=== PATIENT | female | born 1965 | race Asian ===

== ENCOUNTER 2020-02-02 10:28 | Inpatient (IN) | payer OTHER ==
[~2020-02-02] VITALS: Ht 162.6 cm; Wt 63.5 kg
[2020-02-02] VITALS (21 sets, daily range): BP systolic 92–135; BP diastolic 60–108
[2020-02-02] MEDS ORDERED: PROPRANOLOL XL80 M1 GT (10:38)
[2020-02-02] MEDS ORDERED: TRAMADOL HCL100 M2 ORAL (10:38)
[2020-02-02] MEDS ORDERED: PROTONIX20 MG ORAL (10:38)
[2020-02-02] MEDS ORDERED: PROVENTIL HFA6.7 G1 IH (10:38)
[2020-02-02] MEDS ORDERED: METFORMIN HCL500 M1 ORAL (10:38)
--- NOTE | 2020-02-02 10:45 | Emergency Room Report ---
History of Present Illness General Chief Complaint: Syncope Present Illness HPI Disclaimer: Please note that this report is being documented using [employer] technology. This can lead to erroneous entry secondary to incorrect interpretation by the dictating instrument. HPI: 54-year-old female history of cirrhosis, varices, diabetes presents after a syncopal episode. Patient states she was feeling dizzy while eating breakfast and passed out hitting her head. Since that time she has felt dizzy. She has a history of cirrhosis but denies any melena or hematochezia. She has required blood transfusions in the past most recently in December. She denies any fevers. Does complain of a left-sided headache at the site where she hit her head. No nausea no vomiting no chest pain but does complain of palpitations. Allergies: Coded Allergies: MORPHINE (Verified Allergy, Unknown, 02/02/20) COVID-19 Screening Contact w/high risk pt: No Experienced COVID-19 symptoms?: No COVID-19 Testing performed DIRECTOR OPERATING: No Patient History Reviewed Nursing Documentation: PMH: Agreed; PSxH: Agreed Nursing Documentation-PMH Hx Diabetes: Yes Review of Systems All Other Systems: negative except mentioned in HPI Physical Exam Vital Signs Date Time Temp Pulse Resp B/P (MAP) Pulse Ox O2 Delivery O2 Flow Rate FiO2 02/02/20 10:22 52 14 122/88 (99) 98 Room Air Sp02 EP Interpretation: reviewed, normal General Appearance: no apparent distress, other - Pale appearing Head: normocephalic, other - Hematoma to left forehead depressions Eyes: bilateral eye PERRL, bilateral eye EOMI ENT: hearing grossly normal, moist mucus membranes Neck: full range of motion, supple, other - No midline tenderness Respiratory: lungs clear, normal breath sounds, no rhonchi, no respiratory distress, no retraction, no wheezing Cardiovascular #1: normal peripheral pulses, no murmur, bradycardia Gastrointestinal: non tender, soft, non-distended, no guarding Neurologic: alert, oriented x3, no focal defects Skin: normal color, pallor Procedures Critical Care Time Critical Care Time Critical care is made on this patient due to presentation with complete heart block requiring my acute intervention. Critical care time is approximately 35 minutes and excludes procedures Medical Decision Making Diagnostic Impression: Primary Impression: Syncope Additional Impressions: Complete heart block Symptomatic bradycardia Closed head injury ER Course MDM: Differential diagnosis included but not limited to symptomatic bradycardia, complete heart block, syncope, electrolyte disturbance, anemia, dehydration to name a few. Clinical course-patient placed on cardiac monitoring pulse oximetry. Initial EKG showed evidence of sinus bradycardia however while on the monitor patient did have complete heart block. Repeat EKG also confirmed complete heart block. She had prolonged pauses. Patient given multiple doses of atropine with mild improvement however she continued to have long pauses. Patient's potassium was normal. Hemoglobin was also normal. She denied any history of cardiac arrhythmia. At this time due to her bradycardia with complete heart block patient will require pacemaker. Cardiology was consulted Dr. Hanna who will take patient to the cardiac Network Firewall Engineer for transvenous pacer placement. Patient will require admission to the ICU. Case discussed and accepted by Dr. Morales. Of note patient did strike her head during her syncopal event, CT scan of the brain showed no acute process. Labs - Laboratory Tests Test 02/02/20 10:45 White Blood Count 6.4 K/UL (4.8-10.8) Red Blood Count 4.74 M/UL (4.20-5.40) Hemoglobin 11.8 G/DL (12.0-16.0) L Hematocrit 37.3 % (37.0-47.0) Mean Corpuscular Volume 79 FL (80-99) L Mean Corpuscular Hemoglobin 25.0 PG (27.0-31.0) L Mean Corpuscular Hemoglobin Concent 31.8 G/DL (32.0-36.0) L Red Cell Distribution Width 19.5 % (11.6-14.8) H Platelet Count 89 K/UL (150-450) L Mean Platelet Volume 8.8 FL (6.5-10.1) Neutrophils (%) (Auto) % (45.0-75.0) Lymphocytes (%) (Auto) % (20.0-45.0) Monocytes (%) (Auto) % (1.0-10.0) Eosinophils (%) (Auto) % (0.0-3.0) Basophils (%) (Auto) % (0.0-2.0) Differential Total Cells Counted 100 Neutrophils % (Manual) 60 % (45-75) Lymphocytes % (Manual) 32 % (20-45) Monocytes % (Manual) 7 % (1-10) Eosinophils % (Manual) 1 % (0-3) Basophils % (Manual) 0 % (0-2) Band Neutrophils 0 % (0-8) Platelet Estimate Decreased L Platelet Morphology Normal Hypochromasia 1+ Anisocytosis 2+ Prothrombin Time 11.8 SEC (9.30-11.50) H Prothrombin Time INR 1.1 (0.9-1.1) Activated Partial Thromboplast Time 31 SEC (23-33) Sodium Level 137 MMOL/L (136-145) Potassium Level 4.0 MMOL/L (3.5-5.1) Chloride Level 103 MMOL/L (98-107) Carbon Dioxide Level 23 MMOL/L (21-32) Anion Gap 11 mmol/L (5-15) Blood Urea Nitrogen 13 mg/dL (7-18) Creatinine 0.7 MG/DL (0.55-1.30) Estimated Glomerular Filtration Rate > 60 mL/min (>60) Glucose Level 225 MG/DL (74-106) H Calcium Level 8.6 MG/DL (8.5-10.1) Total Bilirubin 0.9 MG/DL (0.2-1.0) Aspartate Amino Transferase (AST) 53 U/L (15-37) H Alanine Aminotransferase (ALT) 74 U/L (12-78) Alkaline Phosphatase 162 U/L (46-116) H Troponin I 0.216 ng/mL (0.000-0.056) Total Protein 8.9 G/DL (6.4-8.2) H Albumin 3.2 G/DL (3.4-5.0) L Globulin 5.7 g/dL Albumin/Globulin Ratio 0.6 (1.0-2.7) L Microbiology Date/Time Source Procedure Growth Status 02/02/20 12:40 Nasopharynx SARS-CoV-2 RdRp Gene Assay - Final Complete On reevaluation: Patient remained having prolonged pauses. Plan-patient in the ICU and transvenous pacer placement with plan for permanent pacemaker placement. EKG Diagnostic Results Troponin ordered: Yes Rate: bradycardiac Rhythm: other - Sinus bradycardia ST Segments: other - Incomplete right bundle branch block Rhythm Strip Diag. Results EP Interpretation: yes Rate: 49 Rhythm: other - Sinus bradycardia Chest X-Ray Diagnostic Results Chest X-Ray Diagnostic Results : Chest X-Ray Ordered: Yes # of Views/Limited/Complete: 1 View Indication: Shortness of Breath EP Interpretation: Yes Interpretation: no consolidation, no effusion, no pneumothorax Impression: No acute disease CT/MRI/US Diagnostic Results CT/MRI/US Diagnostic Results : Imaging Test Ordered: CT scan of the brain Impression No acute process Last Vital Signs Date Time Temp Pulse Resp B/P (MAP) Pulse Ox O2 Delivery O2 Flow Rate FiO2 02/02/20 10:22 52 14 122/88 (99) 98 Room Air Disposition: ADMITTED INPATIENT Condition: Critical Max Rossi M.D. Feb 02, 2020 10:45
[2020-02-02] MEDS ORDERED: Atropine Inj 1mg/10ml Syr ONE (10:56)
[2020-02-02 11:00] LABS: HEMATOCRIT 37.3 % (37.0-47.0); HEMOGLOBIN 11.8 G/DL (12.0-16.0); MEAN CORPUSCULAR VOLUME 79 FL (80-99); PLATELET COUNT 89 K/UL (150-450); RED BLOOD COUNT 4.74 M/UL (4.20-5.40); RED CELL DISTRIBUTION WIDTH 19.5 % (11.6-14.8); WHITE BLOOD COUNT 6.4 K/UL (4.8-10.8)
[2020-02-02] MEDS ORDERED: Atropine Inj 1mg/10ml Syr IVP ONE ×3 (11:00→12:15)
[2020-02-02 11:10] LABS: INR 1.1 (0.9-1.1)
[2020-02-02 11:11] LABS: ANION GAP 11 mmol/L (5-15); BLOOD UREA NITROGEN 13 mg/dL (7-18); CALCIUM 8.6 MG/DL (8.5-10.1); CARBON DIOXIDE 23 MMOL/L (21-32); CHLORIDE 103 MMOL/L (98-107); CREATININE 0.7 MG/DL (0.55-1.30); SODIUM 137 MMOL/L (136-145)
[2020-02-02 11:15] LABS: ALANINE AMINOTRANSFERASE 74 U/L (12-78); ALBUMIN 3.2 G/DL (3.4-5.0); ALBUMIN/GLOBULIN RATIO 0.6 (1.0-2.7); ALKALINE PHOSPHATASE 162 U/L (46-116); ASPARTATE AMINO TRANSFERASE 53 U/L (15-37); BILIRUBIN,TOTAL 0.9 MG/DL (0.2-1.0)
--- NOTE | 2020-02-02 11:41 | Diagnostic Imaging Report ---
Indications: Head trauma, syncopal episode Technique: Spiral acquisitions obtained through the brain. Angled axial and coronal 5 x 5 mm slices were reconstructed. Total dose length product 1098 mGycm. CTDI vol(s) 53 mGy. Dose reduction achieved using automated exposure control Comparison: None. Findings: No acute intracranial hemorrhage or edema, mass effect, nor midline shift. Normal keenan-white differentiation. Normal size ventricles and extra axial CSF spaces. The calvarium is intact. The mastoids are clear. What appears to be prosthetic material is seen in the frontal scalp. The sinuses are clear. Impression: Negative. No acute intracranial bleed or mass effect Frontal scalp prosthesis incidentally noted. Correlate with surgical history The CT scanner at [facility] is accredited by the [employer] and the scans are performed using protocols designed to limit radiation exposure to as low as reasonably achievable to attain images of sufficient resolution adequate for diagnostic evaluation.
--- NOTE | 2020-02-02 11:41 | Diagnostic Imaging Report ---
Indication: Shortness of breath Technique: One view of the chest Comparison: none Findings: Lungs and pleural spaces are clear. Heart size is upper limits normal. Impression: No acute process
--- NOTE | 2020-02-02 13:07 | Cardiac Electrophysiology PN ---
Subjective Subjective [id number] Objective Last 24 Hour Vital Signs Date Time Temp Pulse Resp B/P (MAP) Pulse Ox O2 Delivery O2 Flow Rate FiO2 02/02/20 11:00 98.5 64 18 119/85 99 Room Air 02/02/20 10:44 98.5 50 16 127/82 100 Room Air 02/02/20 10:22 52 14 122/88 (99) 98 Room Air Laboratory Tests Test 02/02/20 10:45 White Blood Count 6.4 K/UL (4.8-10.8) Red Blood Count 4.74 M/UL (4.20-5.40) Hemoglobin 11.8 G/DL (12.0-16.0) L Hematocrit 37.3 % (37.0-47.0) Mean Corpuscular Volume 79 FL (80-99) L Mean Corpuscular Hemoglobin 25.0 PG (27.0-31.0) L Mean Corpuscular Hemoglobin Concent 31.8 G/DL (32.0-36.0) L Red Cell Distribution Width 19.5 % (11.6-14.8) H Platelet Count 89 K/UL (150-450) L Mean Platelet Volume 8.8 FL (6.5-10.1) Neutrophils (%) (Auto) % (45.0-75.0) Lymphocytes (%) (Auto) % (20.0-45.0) Monocytes (%) (Auto) % (1.0-10.0) Eosinophils (%) (Auto) % (0.0-3.0) Basophils (%) (Auto) % (0.0-2.0) Differential Total Cells Counted 100 Neutrophils % (Manual) 60 % (45-75) Lymphocytes % (Manual) 32 % (20-45) Monocytes % (Manual) 7 % (1-10) Eosinophils % (Manual) 1 % (0-3) Basophils % (Manual) 0 % (0-2) Band Neutrophils 0 % (0-8) Platelet Estimate Decreased L Platelet Morphology Normal Hypochromasia 1+ Anisocytosis 2+ Prothrombin Time 11.8 SEC (9.30-11.50) H Prothromb Time International Ratio 1.1 (0.9-1.1) Activated Partial Thromboplast Time 31 SEC (23-33) Sodium Level 137 MMOL/L (136-145) Potassium Level 4.0 MMOL/L (3.5-5.1) Chloride Level 103 MMOL/L (98-107) Carbon Dioxide Level 23 MMOL/L (21-32) Anion Gap 11 mmol/L (5-15) Blood Urea Nitrogen 13 mg/dL (7-18) Creatinine 0.7 MG/DL (0.55-1.30) Estimat Glomerular Filtration Rate > 60 mL/min (>60) Glucose Level 225 MG/DL (74-106) H Calcium Level 8.6 MG/DL (8.5-10.1) Total Bilirubin 0.9 MG/DL (0.2-1.0) Aspartate Amino Transf (AST/SGOT) 53 U/L (15-37) H Alanine Aminotransferase (ALT/SGPT) 74 U/L (12-78) Alkaline Phosphatase 162 U/L (46-116) H Troponin I 0.216 ng/mL (0.000-0.056) Total Protein 8.9 G/DL (6.4-8.2) H Albumin 3.2 G/DL (3.4-5.0) L Globulin 5.7 g/dL Albumin/Globulin Ratio 0.6 (1.0-2.7) L Rodrigue Hanna MD Feb 02, 2020 13:07
[2020-02-02] MEDS ORDERED: Isovue-M 300 15ml INJ ONE (13:26)
[2020-02-02] MEDS ORDERED: Lidocaine 1% Plain 30 ml INJ ONE (13:27)
[2020-02-02] MEDS ORDERED: Sterile Water Irrig 1000ml IRRIG ONE (13:31)
[2020-02-02] MEDS ORDERED: LR 1000ml ONE (13:31)
--- NOTE | 2020-02-02 13:41 | 48 Hour Post Anesthesia Eval ---
Post Anesthesia Evaluation Procedure: Temporary Transvenous Pacemaker Date of Evaluation: Feb 02, 2020 Time of Evaluation: 17:23 Blood Pressure Systolic: 138 0: 77 Pulse Rate: 100 Respiratory Rate: 18 Temperature (Fahrenheit): 98.3 O2 Sat by Pulse Oximetry: 100 Airway: patent Nausea: No Vomiting: No Pain Intensity: 2 Hydration Status: adequate Cardiopulmonary Status: Stable Mental Status/LOC: patient returned to baseline Follow-up Care/Observations: 0 Post-Anesthesia Complications: 0 Follow-up care needed: N/A Iglesia Francois MD Feb 02, 2020 13:41
--- NOTE | 2020-02-02 13:41 | Anethesia Preoperative Eval ---
Anesthesia Pre-op PMH/ROS General Date of Evaluation: Feb 02, 2020 Time of Evaluation: 13:31 Anesthesiologist: Priscila ASA Score: ASA 4 Mallampati Score Class I : Soft palate, uvula, fauces, pillars visible Class II: Soft palate, uvula, fauces visible Class III: Soft palate, base of uvula visible Class IV: Only hard plate visible Mallampati Classification: Class II Surgeon: Cyndi Diagnosis: CHB Surgical Procedure: Temporary Transvenous Pacemaker Anesthesia History: none Family History: no anesthesia problems Allergies: Coded Allergies: MORPHINE (Verified Allergy, Unknown, 02/02/20) Medications: see eMAR Patient NPO?: Yes Past Medical History Cardiovascular: Reports: HTN Gastrointestinal/Genitourinary: Reports: other - Cirrhosis Endocrine: Reports: DM HEENT: Reports: other - Closed Head Injury Hematology/Immune: Reports: anemia Anesthesia Pre-op Phys. Exam Physician Exam Last Vital Signs Date Time Temp Pulse Resp B/P (MAP) Pulse Ox O2 Delivery O2 Flow Rate FiO2 02/02/20 11:00 98.5 64 18 119/85 99 Room Air Constitutional: NAD Neurologic: CN 2-12 intact Cardiovascular: RRR Respiratory: CTA Gastrointestinal: S/NT/ND Airway Exam Mallampati Score: Class II MO: limited ROM: limited Teeth: missing, intact Anesthesia Pre-op A/P Labs Hematology Test 02/02/20 10:45 White Blood Count 6.4 K/UL (4.8-10.8) Red Blood Count 4.74 M/UL (4.20-5.40) Hemoglobin 11.8 G/DL (12.0-16.0) L Hematocrit 37.3 % (37.0-47.0) Mean Corpuscular Volume 79 FL (80-99) L Mean Corpuscular Hemoglobin 25.0 PG (27.0-31.0) L Mean Corpuscular Hemoglobin Concent 31.8 G/DL (32.0-36.0) L Red Cell Distribution Width 19.5 % (11.6-14.8) H Platelet Count 89 K/UL (150-450) L Mean Platelet Volume 8.8 FL (6.5-10.1) Neutrophils (%) (Auto) % (45.0-75.0) Lymphocytes (%) (Auto) % (20.0-45.0) Monocytes (%) (Auto) % (1.0-10.0) Eosinophils (%) (Auto) % (0.0-3.0) Basophils (%) (Auto) % (0.0-2.0) Differential Total Cells Counted 100 Neutrophils % (Manual) 60 % (45-75) Lymphocytes % (Manual) 32 % (20-45) Monocytes % (Manual) 7 % (1-10) Eosinophils % (Manual) 1 % (0-3) Basophils % (Manual) 0 % (0-2) Band Neutrophils 0 % (0-8) Platelet Estimate Decreased L Platelet Morphology Normal Hypochromasia 1+ Anisocytosis 2+ Coagulation Test 02/02/20 10:45 Prothrombin Time 11.8 SEC (9.30-11.50) H Prothromb Time International Ratio 1.1 (0.9-1.1) Activated Partial Thromboplast Time 31 SEC (23-33) Chemistry Test 02/02/20 10:45 Sodium Level 137 MMOL/L (136-145) Potassium Level 4.0 MMOL/L (3.5-5.1) Chloride Level 103 MMOL/L (98-107) Carbon Dioxide Level 23 MMOL/L (21-32) Anion Gap 11 mmol/L (5-15) Blood Urea Nitrogen 13 mg/dL (7-18) Creatinine 0.7 MG/DL (0.55-1.30) Estimat Glomerular Filtration Rate > 60 mL/min (>60) Glucose Level 225 MG/DL (74-106) H Calcium Level 8.6 MG/DL (8.5-10.1) Total Bilirubin 0.9 MG/DL (0.2-1.0) Aspartate Amino Transf (AST/SGOT) 53 U/L (15-37) H Alanine Aminotransferase (ALT/SGPT) 74 U/L (12-78) Alkaline Phosphatase 162 U/L (46-116) H Troponin I 0.216 ng/mL (0.000-0.056) Total Protein 8.9 G/DL (6.4-8.2) H Albumin 3.2 G/DL (3.4-5.0) L Globulin 5.7 g/dL Albumin/Globulin Ratio 0.6 (1.0-2.7) L Risk Assessment & Plan Assessment: ASA 4 Plan: GA Status Change Before Surgery: Yes Pre-Antibiotics Dru Gram Ancef IV Given Within 1 Hr of Incision: Yes Time Given: 14:01 Iglesia Francois MD Feb 02, 2020 13:40
--- NOTE | 2020-02-02 13:41 | Immediate Post-Op Evaluation ---
Immediate Post-Op Evalulation Immediate Post-Op Evalulation Procedure: Temporary Transvenous Pacemaker Date of Evaluation: Feb 02, 2020 Time of Evaluation: 14:58 IV Fluids: 500 LR Blood Products: 0 Estimated Blood Loss: 2 Urinary Output: 0 Blood Pressure Systolic: 144 Blood Pressure Diastolic: 78 Pulse Rate: 100 - Paced Rhythm Respiratory Rate: 16 O2 Sat by Pulse Oximetry: 100 Temperature (Fahrenheit): 98.2 Pain Score (1-10): 2 Nausea: No Vomiting: No Complications 0 Patient Status: awake, reacts, patent, none Hydration Status: adequate Dru Gram Ancef IV Given Within 1 Hr of Incision: Yes Time Given: 14:01 Iglesia Francois MD Feb 02, 2020 13:41
[2020-02-02] MEDS ORDERED: NS Irrig 1000ml IRRIG ONE ×2 (13:43→14:06)
[2020-02-02] MEDS ORDERED: Heparin 5000 units/ml inj ONE (13:43)
[2020-02-02] MEDS ORDERED: Iothalamate Meglumine 60% 50ML INJ ONE (13:44)
[2020-02-02] MEDS ORDERED: Midazolam 2mg/2ml Inj ONE (13:49)
[2020-02-02] MEDS ORDERED: fentaNYL 100 mcg/2 mL IV ONE (13:49)
[2020-02-02] MEDS ORDERED: Sodium Chloride 10ml vial INJ ONE (13:49)
[2020-02-02] MEDS ORDERED: Atropine Sulfate 0.4mg/ml inj ONE (14:01)
--- NOTE | 2020-02-02 14:41 | Brief Operative Note ---
Immediate Post Operative Note Operative Note Pre-op Diagnosis: CHB. Procedure: Transvenous temporary pacer placement dictated [id number] Post-op Diagnosis: same as pre-op Specimen: none Complications: none Condition: stable Fluids: none Estimated Blood Loss: none Implant(s) used?: No Rodrigue Hanna MD Feb 02, 2020 14:41
--- NOTE | 2020-02-02 15:15 | Consultation ---
DATE OF CONSULTATION: 02/02/2020 CARDIAC ELECTROPHYSIOLOGY CONSULTATION REFERRING PHYSICIAN: Jose Morales M.D. REASON FOR CONSULTATION: Syncope and intermittent complete heart block. HISTORY OF PRESENT ILLNESS: The patient is a 54-year-old lady with history of hypertension, diabetes, and cirrhosis of the liver as well as varices, who presents to the hospital after having had syncopal episodes. The patient felt dizzy while having breakfast and then passed out hitting her head. The patient has a history of blood transfusion in the past, most recent in December. The patient hit left side of her head, but does not have any nausea or vomiting. Her EKG in the emergency room showed sinus rhythm with complete heart block with ventricular escape in the 30s. The second EKG showed sinus bradycardia with incomplete right bundle-branch block and prolonged QT. PHYSICAL EXAMINATION: VITAL SIGNS: Blood pressure 119/85, pulse is 40, respirations are 18. She is afebrile. HEAD AND NECK: No JVD. LUNGS: Clear. CARDIOVASCULAR: Bradycardic, irregular S1 and S2. ABDOMEN: Soft, status post laparoscopic cholecystectomy. EXTREMITIES: No pitting edema. LABORATORY AND DIAGNOSTIC DATA: Her labs show white count of 6.4, hemoglobin of 11.8, hematocrit of 37, and platelet count is 89. Sodium is 137, potassium 4.0, BUN of 13, creatinine 0.7, glucose 225. Troponin is 0.216. ASSESSMENT AND PLAN: 1. Intermittent complete heart block and syncope. The patient already ate today. Her first troponin is mildly elevated. We will completely rule out CO protocol, but in view of her intermittent complete heart block, she would need a temporary pacemaker. Decision regarding permanent pacemaker will be done after the workup is completed. 2. Troponin elevation, 0.216. We will completely rule out CO protocol. May need cardiac catheterization for further evaluation of her coronaries. In the meantime, we will completely rule out CO protocol. 3. History of cirrhosis of the liver. 4. Diabetes, on metformin. Thank you very much Dr. Morales for allowing me to participate in the care of this patient. Please do not hesitate to contact me if you have any questions regarding my evaluation. Rodrigue Hanna M.D. DR: SUSAN JOB#: [id number] CC:
--- NOTE | 2020-02-02 15:45 | Procedure Note ---
DATE OF PROCEDURE: 02/02/2020 TEMPORARY TRANSVENOUS PACEMAKER PLACEMENT SURGEON: Rodrigue Hanna MD INDICATION FOR THE PROCEDURE: Syncope and complete heart block with heart rate down to 20s. PROCEDURE PERFORMED: 1. Temporary transvenous pacemaker placement. 2. Fluoroscopy supervision and interpretation. OPERATIVE REPORT: Patient was brought into the operating room in a fasting state and after informed consent was obtained. Patient was prepped and draped in usual fashion. Anesthesia was provided by the anesthesiologist. Patient was in complete heart block with a ventricular rate in the 20s to 30s, but was maintaining a blood pressure. Patient was anesthetized by the anesthesiologist. A total of 10 mL lidocaine was given to right femoral vein area. Access to right femoral vein was obtained by Seldinger technique and a 5-Nepali sheath was placed. Temporary transvenous pacemaker, which was a 5-Nepali catheter was placed through this access under fluoroscopic guidance right ventricular apex. Excellent sensing and pacing parameters were obtained. This temporary venous lead was then affixed to underlying skin. The pacer was programmed to lower rate of 100 and a nonsynchronous mode and output of 10 mA. The threshold was only 1.5 mA. Patient suffered no immediate complications from the procedure and will be transferred to the intensive care unit. IMPRESSION: 1. Successful placement of a temporary transvenous pacemaker from right femoral vein area. 2. The pacer was programmed to lower rate of 100 in an asynchronous mode and output of 10 mA. Rodrigue Hanna M.D. DR: BRIDGETT JOB#: [id number] CC:
[2020-02-02] MEDS: Hydromorphone 0.5mg/0.5ml inj IVP PRN (16:19)
--- NOTE | 2020-02-02 16:19 | Diagnostic Imaging Report ---
INDICATION: Pain, intraoperative TECHNIQUE: Intraoperative imaging Fluoroscopy time: 27.4 seconds Total dose: 0.43378 mGym2 Total number of images: One COMPARISON: None FINDINGS: Intraoperative images demonstrate a femoral temporary pacemaker lead, tip at the expected level of the right ventricular apex IMPRESSION: Intraoperative imaging, as described
[2020-02-02] MEDS: metFORMIN 500mg tab ORAL SCH (17:06)
[2020-02-02] MEDS: D5NS 1,000 ML IV SCH (17:07)
--- NOTE | 2020-02-02 18:20 | Diagnostic Imaging Report ---
EXAM: XR Chest, 1 View CLINICAL HISTORY: CP TECHNIQUE: Frontal view of the chest. COMPARISON: Earlier study of 02/02/2020. FINDINGS: Lungs: No consolidative change. Pleural space: No pleural effusion. No pneumothorax. Heart: Unremarkable. No cardiomegaly. Mediastinum: Unremarkable. Bones/joints: Osteopenia. Other findings: Hypoaeration. Mild cardiomegaly. IMPRESSION: 1. Hypoaeration, similar to the earlier study. 2. Mild cardiomegaly.
[2020-02-02] MEDS: Dyna-Hex 2% Top Sol 2oz TOPIC SCH (20:33)
[2020-02-02] MEDS: Pantoprazole Inj IVP SCH (20:33)
[2020-02-03] VITALS (27 sets, daily range): BP systolic 91–127; BP diastolic 51–85
[2020-02-03] MEDS: Hydromorphone 0.5mg/0.5ml inj IVP PRN ×2 (02:18→10:06)
[2020-02-03 05:41] LABS: HEMATOCRIT 35.2 % (37.0-47.0); HEMOGLOBIN 10.9 G/DL (12.0-16.0); MEAN CORPUSCULAR VOLUME 82 FL (80-99); PLATELET COUNT 60 K/UL (150-450); RED BLOOD COUNT 4.31 M/UL (4.20-5.40); RED CELL DISTRIBUTION WIDTH 18.5 % (11.6-14.8); WHITE BLOOD COUNT 3.8 K/UL (4.8-10.8)
[2020-02-03 07:45] LABS: ANION GAP 10 mmol/L (5-15); BLOOD UREA NITROGEN 14 mg/dL (7-18); CALCIUM 8.5 MG/DL (8.5-10.1); CARBON DIOXIDE 24 MMOL/L (21-32); CHLORIDE 105 MMOL/L (98-107); CREATININE 0.7 MG/DL (0.55-1.30); POTASSIUM 3.7 MMOL/L (3.5-5.1); SODIUM 139 MMOL/L (136-145)
[2020-02-03] MEDS: metFORMIN 500mg tab ORAL SCH ×2 (09:23→17:09)
[2020-02-03] MEDS: Pantoprazole Inj IVP SCH ×2 (09:24→20:48)
[2020-02-03] MEDS: D5NS 1,000 ML IV SCH (09:25)
--- NOTE | 2020-02-03 10:38 | Cardiac Electrophysiology PN ---
Assessment/Plan Assessment/Plan 1. Intermittent complete heart block and syncope. S/P Transvenous temporary pacemaker placement by me yesterday. Need permanent pacer placement. DW patient with RN who agreed to pr oceed.Awaiting authorization from [facility] No underlying rhythm this AM 2. Troponin elevation, 0.216. 0.2 and 0.2. Levels are low and Flat. No CP. ECG May need cardiac catheterization but needs PPM implant 3. Cirrhosis of the liver. 4. Diabetes, on metformin. LINO RN and Dr Cabrera Subjective Subjective In ICU with temporary pacer from RFV. Still 100% V paced with no underlying.No CP or SOB Objective Last 24 Hour Vital Signs Date Time Temp Pulse Resp B/P (MAP) Pulse Ox O2 Delivery O2 Flow Rate FiO2 02/03/20 07:00 100 14 101/73 (82) 100 02/03/20 06:00 100 14 94/65 (75) 100 02/03/20 05:00 100 15 101/64 (76) 99 02/03/20 04:00 Nasal Cannula 2.0 02/03/20 04:00 2.0 02/03/20 04:00 98.6 100 15 101/64 (76) 99 02/03/20 04:00 100 02/03/20 03:00 100 14 111/76 (88) 100 02/03/20 02:00 100 15 101/73 (82) 100 02/03/20 01:00 100 15 113/69 (84) 100 02/03/20 00:00 98.6 100 15 103/67 (79) 100 02/03/20 00:00 Nasal Cannula 2.0 02/03/20 00:00 100 02/03/20 00:00 2.0 02/02/20 23:00 100 20 102/66 (78) 100 02/02/20 22:00 100 17 92/60 (71) 100 02/02/20 21:00 100 23 108/67 (81) 100 02/02/20 20:00 Nasal Cannula 2.0 02/02/20 20:00 100 02/02/20 20:00 2.0 02/02/20 20:00 98.4 100 21 101/70 (80) 100 02/02/20 19:30 99 26 111/73 (86) 100 11/2/20 19:00 100 21 103/79 (87) 100 02/02/20 18:30 100 20 109/69 (82) 100 02/02/20 18:00 100 20 103/69 (80) 100 02/02/20 17:45 100 24 104/69 (81) 100 02/02/20 17:30 100 22 108/61 (77) 100 02/02/20 17:15 100 21 109/70 (83) 100 02/02/20 17:00 100 21 111/69 (83) 100 02/02/20 16:45 100 20 98/61 (73) 99 02/02/20 16:30 100 16 111/70 (84) 100 02/02/20 16:15 98 28 129/76 (93) 100 02/02/20 16:00 98.6 100 26 135/108 (117) 100 02/02/20 16:00 2.0 02/02/20 16:00 100 02/02/20 15:45 102 26 119/72 (88) 100 02/02/20 15:32 Nasal Cannula 2.0 02/02/20 15:30 100 29 98/79 (85) 100 02/02/20 15:10 106 02/02/20 14:42 100 18 100 02/02/20 13:45 98.0 39 22 99/51 98 Room Air 02/02/20 12:20 98.5 62 19 127/86 97 Room Air 02/02/20 11:00 98.5 64 18 119/85 99 Room Air 02/02/20 10:44 98.5 50 16 127/82 100 Room Air Intake and Output 02/02/20 02/03/20 19:00 07:00 Intake Total 145 ml 720 ml Output Total 1045 ml 790 ml Balance -900 ml -70 ml Intake Oral 0 ml IV Total 115 ml 720 ml Other 30 ml Output Urine Total 1045 ml 790 ml Laboratory Tests Test 02/02/20 10:45 02/02/20 17:50 02/03/20 02:05 02/03/20 04:30 White Blood Count 6.4 K/UL (4.8-10.8) 3.8 K/UL (4.8-10.8) L Red Blood Count 4.74 M/UL (4.20-5.40) 4.31 M/UL (4.20-5.40) Hemoglobin 11.8 G/DL (12.0-16.0) L 10.9 G/DL (12.0-16.0) L Hematocrit 37.3 % (37.0-47.0) 35.2 % (37.0-47.0) L Mean Corpuscular Volume 79 FL (80-99) L 82 FL (80-99) Mean Corpuscular Hemoglobin 25.0 PG (27.0-31.0) L 25.4 PG (27.0-31.0) L Mean Corpuscular Hemoglobin Concent 31.8 G/DL (32.0-36.0) L 31.1 G/DL (32.0-36.0) L Red Cell Distribution Width 19.5 % (11.6-14.8) H 18.5 % (11.6-14.8) H Platelet Count 89 K/UL (150-450) L 60 K/UL (150-450) L Mean Platelet Volume 8.8 FL (6.5-10.1) 9.5 FL (6.5-10.1) Neutrophils (%) (Auto) % (45.0-75.0) % (45.0-75.0) Lymphocytes (%) (Auto) % (20.0-45.0) % (20.0-45.0) Monocytes (%) (Auto) % (1.0-10.0) % (1.0-10.0) Eosinophils (%) (Auto) % (0.0-3.0) % (0.0-3.0) Basophils (%) (Auto) % (0.0-2.0) % (0.0-2.0) Differential Total Cells Counted 100 100 Neutrophils % (Manual) 60 % (45-75) 60 % (45-75) Lymphocytes % (Manual) 32 % (20-45) 35 % (20-45) Monocytes % (Manual) 7 % (1-10) 5 % (1-10) Eosinophils % (Manual) 1 % (0-3) 0 % (0-3) Basophils % (Manual) 0 % (0-2) 0 % (0-2) Band Neutrophils 0 % (0-8) 0 % (0-8) Platelet Estimate Decreased L Decreased L Platelet Morphology Normal Normal Hypochromasia 1+ 2+ Anisocytosis 2+ 1+ Prothrombin Time 11.8 SEC (9.30-11.50) H Prothromb Time International Ratio 1.1 (0.9-1.1) Activated Partial Thromboplast Time 31 SEC (23-33) Sodium Level 137 MMOL/L (136-145) 139 MMOL/L (136-145) Potassium Level 4.0 MMOL/L (3.5-5.1) 3.7 MMOL/L (3.5-5.1) Chloride Level 103 MMOL/L (98-107) 105 MMOL/L (98-107) Carbon Dioxide Level 23 MMOL/L (21-32) 24 MMOL/L (21-32) Anion Gap 11 mmol/L (5-15) 10 mmol/L (5-15) Blood Urea Nitrogen 13 mg/dL (7-18) 14 mg/dL (7-18) Creatinine 0.7 MG/DL (0.55-1.30) 0.7 MG/DL (0.55-1.30) Estimat Glomerular Filtration Rate > 60 mL/min (>60) > 60 mL/min (>60) Glucose Level 225 MG/DL (74-106) H 177 MG/DL (74-106) H Calcium Level 8.6 MG/DL (8.5-10.1) 8.5 MG/DL (8.5-10.1) Total Bilirubin 0.9 MG/DL (0.2-1.0) Aspartate Amino Transf (AST/SGOT) 53 U/L (15-37) H Alanine Aminotransferase (ALT/SGPT) 74 U/L (12-78) Alkaline Phosphatase 162 U/L (46-116) H Troponin I 0.216 ng/mL (0.000-0.056) 0.259 ng/mL (0.000-0.056) 0.249 ng/mL (0.000-0.056) Total Protein 8.9 G/DL (6.4-8.2) H Albumin 3.2 G/DL (3.4-5.0) L Globulin 5.7 g/dL Albumin/Globulin Ratio 0.6 (1.0-2.7) L Microcytosis 2+ Pro-B-Type Natriuretic Peptide 868 pg/mL (0-125) H Thyroid Stimulating Hormone (TSH) 0.956 uiU/mL (0.358-3.740) Free Thyroxine 1.29 NG/DL (0.76-1.46) Microbiology Date/Time Source Procedure Growth Status 02/02/20 12:40 Nasopharynx SARS-CoV-2 RdRp Gene Assay - Final Complete Objective HEAD AND NECK: No JVD. LUNGS: Clear. CARDIOVASCULAR: Regular S1 and S2 with no G/R/M. ABDOMEN: Soft, status post laparoscopic cholecystectomy. EXTREMITIES: No pitting edema.Temporary pacer RFV Rodrigue Hanna MD Feb 03, 2020 10:38
--- NOTE | 2020-02-03 10:59 | Consultation ---
History of Present Illness General Date patient seen: Feb 03, 2020 Reason for Hospitalization: Syncope Present Illness HPI This is a 54-year-old female with known history of cirrhosis, varices, diabetes who presents after a syncopal episode. Patient states she was feeling dizzy while eating breakfast and passed out hitting her head. Since that time she has felt dizzy. She has a history of cirrhosis but denies any melena or hematochezia. She has required blood transfusions in the past most recently in December. She denies any fevers. Does complain of a left-sided headache at the site where she hit her head. No nausea no vomiting no chest pain but does complain of palpitations. Identified to have abnormal LFTs and labs surgery called to evaluate assist with care patient seen, patient evaluate, chart reviewed. Patient states she was diagnosed with liver cirrhosis and has been following up with [facility] outpatient liver center. States that she had laparoscopic cholecystectomy recently and she is healing from that. States that they have not found a etiology of her cirrhosis as she does not have a drinking history or history of hepatitis as per patient. Currently abdominal pain improving. Allergies: Coded Allergies: MORPHINE (Verified Allergy, Unknown, 02/02/20) COVID-19 Screening Contact w/high risk pt: No Experienced COVID-19 symptoms?: No Medication History Scheduled Metformin Hcl* (Metformin Hcl*), Unknown Dose ORAL TWICE A DAY, (Reported) Pantoprazole Sodium (Protonix), Unknown Dose ORAL DAILY, (Reported) Tramadol Hcl (Tramadol Hcl), Unknown Dose ORAL DAILY, (Reported) Miscellaneous Medications Albuterol Sulfate (Proventil Hfa), 6.7 GM IH, (Reported) Propranolol HCl (Propranolol HCl ER), Unknown Dose GT, (Reported) Patient History History Provided By: Patient Healthcare decision maker Resuscitation status Advanced Directive on File Past Medical/Surgical History Past Medical/Surgical History: (1) Abnormal LFTs (2) Liver cirrhosis (3) Syncope (4) Closed head injury (5) Symptomatic bradycardia (6) Complete heart block Review of Systems Review of Symptoms General ROS: no weight loss or fever Psychological ROS: no depression or mood changes, no memory loss Ophthalmic ROS: no visual changes or eye irritation ENT ROS: no nasal congestion, hearing loss, dizziness Allergy and Immunology ROS: no allergic symptoms or urticaria Hematological and Lymphatic ROS: no swollen glands, unusual bleeding or bruising Endocrine ROS: no polyuria, polydipsia, weight changes, temperature intolerance Respiratory ROS: no cough, shortness of breath, or wheezing Cardiovascular ROS: no chest pain or dyspnea on exertion Gastrointestinal ROS: denies abdominal pain, bright red blood in stool. Musculoskeletal ROS: no myalgias or arthralgias Neurological ROS: no TIA or stroke symptoms Dermatological ROS: no new or changing skin lesions, rashes or pruritis Physical Exam Physical Exam General appearance: alert, cooperative, no distress, appears stated age Head: Normocephalic, without obvious abnormality, atraumatic Eyes: conjunctivae/corneas clear. PERRL, EOM's intact. Fundi benign Throat: Lips, mucosa, and tongue normal. Teeth and gums normal Neck: supple, symmetrical, trachea midline, no adenopathy, thyroid: not enlarged, symmetric, no tenderness/mass/nodules, no carotid bruit and no JVD Lungs: clear to auscultation bilaterally Heart: regular rate and rhythm, S1, S2 normal, no murmur, click, rub or gallop Abdomen: soft, non-tender. Bowel sounds normal. No masses, no organomegaly Extremities: extremities normal, atraumatic, no cyanosis or edema Pulses: 2+ and symmetric Skin: Skin color, texture, turgor normal. No rashes or lesions Neurologic: Grossly normal Last 24 Hour Vital Signs Date Time Temp Pulse Resp B/P (MAP) Pulse Ox O2 Delivery O2 Flow Rate FiO2 02/03/20 07:00 100 14 101/73 (82) 100 02/03/20 06:00 100 14 94/65 (75) 100 02/03/20 05:00 100 15 101/64 (76) 99 02/03/20 04:00 Nasal Cannula 2.0 02/03/20 04:00 2.0 02/03/20 04:00 98.6 100 15 101/64 (76) 99 02/03/20 04:00 100 02/03/20 03:00 100 14 111/76 (88) 100 02/03/20 02:00 100 15 101/73 (82) 100 02/03/20 01:00 100 15 113/69 (84) 100 02/03/20 00:00 98.6 100 15 103/67 (79) 100 02/03/20 00:00 Nasal Cannula 2.0 02/03/20 00:00 100 11/3/20 00:00 2.0 02/02/20 23:00 100 20 102/66 (78) 100 02/02/20 22:00 100 17 92/60 (71) 100 02/02/20 21:00 100 23 108/67 (81) 100 02/02/20 20:00 Nasal Cannula 2.0 02/02/20 20:00 100 02/02/20 20:00 2.0 02/02/20 20:00 98.4 100 21 101/70 (80) 100 02/02/20 19:30 99 26 111/73 (86) 100 02/02/20 19:00 100 21 103/79 (87) 100 02/02/20 18:30 100 20 109/69 (82) 100 02/02/20 18:00 100 20 103/69 (80) 100 02/02/20 17:45 100 24 104/69 (81) 100 02/02/20 17:30 100 22 108/61 (77) 100 02/02/20 17:15 100 21 109/70 (83) 100 02/02/20 17:00 100 21 111/69 (83) 100 02/02/20 16:45 100 20 98/61 (73) 99 02/02/20 16:30 100 16 111/70 (84) 100 02/02/20 16:15 98 28 129/76 (93) 100 02/02/20 16:00 98.6 100 26 135/108 (117) 100 02/02/20 16:00 2.0 02/02/20 16:00 100 02/02/20 15:45 102 26 119/72 (88) 100 02/02/20 15:32 Nasal Cannula 2.0 02/02/20 15:30 100 29 98/79 (85) 100 02/02/20 15:10 106 02/02/20 14:42 100 18 100 02/02/20 13:45 98.0 39 22 99/51 98 Room Air 02/02/20 12:20 98.5 62 19 127/86 97 Room Air 02/02/20 11:00 98.5 64 18 119/85 99 Room Air Intake and Output 02/02/20 02/03/20 19:00 07:00 Intake Total 145 ml 720 ml Output Total 1045 ml 790 ml Balance -900 ml -70 ml Intake Oral 0 ml IV Total 115 ml 720 ml Other 30 ml Output Urine Total 1045 ml 790 ml Laboratory Tests Test 02/02/20 17:50 02/03/20 02:05 02/03/20 04:30 Troponin I 0.259 ng/mL (0.000-0.056) 0.249 ng/mL (0.000-0.056) White Blood Count 3.8 K/UL (4.8-10.8) L Red Blood Count 4.31 M/UL (4.20-5.40) Hemoglobin 10.9 G/DL (12.0-16.0) L Hematocrit 35.2 % (37.0-47.0) L Mean Corpuscular Volume 82 FL (80-99) Mean Corpuscular Hemoglobin 25.4 PG (27.0-31.0) L Mean Corpuscular Hemoglobin Concent 31.1 G/DL (32.0-36.0) L Red Cell Distribution Width 18.5 % (11.6-14.8) H Platelet Count 60 K/UL (150-450) L Mean Platelet Volume 9.5 FL (6.5-10.1) Neutrophils (%) (Auto) % (45.0-75.0) Lymphocytes (%) (Auto) % (20.0-45.0) Monocytes (%) (Auto) % (1.0-10.0) Eosinophils (%) (Auto) % (0.0-3.0) Basophils (%) (Auto) % (0.0-2.0) Differential Total Cells Counted 100 Neutrophils % (Manual) 60 % (45-75) Lymphocytes % (Manual) 35 % (20-45) Monocytes % (Manual) 5 % (1-10) Eosinophils % (Manual) 0 % (0-3) Basophils % (Manual) 0 % (0-2) Band Neutrophils 0 % (0-8) Platelet Estimate Decreased L Platelet Morphology Normal Hypochromasia 2+ Anisocytosis 1+ Microcytosis 2+ Sodium Level 139 MMOL/L (136-145) Potassium Level 3.7 MMOL/L (3.5-5.1) Chloride Level 105 MMOL/L (98-107) Carbon Dioxide Level 24 MMOL/L (21-32) Anion Gap 10 mmol/L (5-15) Blood Urea Nitrogen 14 mg/dL (7-18) Creatinine 0.7 MG/DL (0.55-1.30) Estimat Glomerular Filtration Rate > 60 mL/min (>60) Glucose Level 177 MG/DL (74-106) H Calcium Level 8.5 MG/DL (8.5-10.1) Pro-B-Type Natriuretic Peptide 868 pg/mL (0-125) H Thyroid Stimulating Hormone (TSH) 0.956 uiU/mL (0.358-3.740) Free Thyroxine 1.29 NG/DL (0.76-1.46) Microbiology Date/Time Source Procedure Growth Status 02/02/20 12:40 Nasopharynx SARS-CoV-2 RdRp Gene Assay - Final Complete Height (Feet): 5 Height (Inches): 5.00 Weight (Pounds): 68 Medications Current Medications Medications (Trade) Dose Ordered Sig/Emma Route PRN Reason Start Time Stop Time Status Last Admin Dose Admin Acetaminophen (Tylenol) 650 mg Q4H PRN ORAL Moderate Pain (Pain Scale 4-6) 02/02/20 16:00 03/03/20 15:59 02/02/20 21:21 Chlorhexidine Gluconate (Heather-Hex 2%) 1 applic DAILY@2000 TOPIC 02/02/20 20:00 05/02/20 19:59 02/02/20 20:33 Dextrose (Dextrose 50%) 25 ml Q30M PRN IV Hypoglycemia 02/03/20 08:00 05/03/20 07:59 Dextrose (Dextrose 50%) 50 ml Q30M PRN IV Hypoglycemia 02/03/20 08:00 05/03/20 07:59 Dextrose/Sodium Chloride 1,000 ml @ 60 mls/hr [id number] IV 02/02/20 16:45 03/03/20 16:44 02/03/20 09:25 Hydromorphone HCl (Dilaudid) 0.25 mg Q4H PRN IVP Severe Pain (Pain Scale 7-10) 02/02/20 16:00 02/09/20 15:59 02/03/20 10:06 Insulin Aspart (NovoLOG) BEFORE MEALS AND HS SUBQ 02/03/20 11:30 05/03/20 11:29 Metformin HCl (Glucophage) 500 mg BID ORAL 02/02/20 18:00 03/03/20 17:59 02/03/20 09:23 Pantoprazole (Protonix) 40 mg EVERY 12 HOURS IVP 02/02/20 21:00 03/03/20 20:59 02/03/20 09:24 Assessment/Plan Problem List: (1) Syncope ICD Codes: R55 - Syncope and collapse SNOMED: 011115150, 772290339 (2) Closed head injury Assessment & Plan: No acute intracranial hemorrhage or edema, mass effect, nor midline shift. Normal keenan-white differentiation. Normal size ventricles and extra axial CSF spaces. The calvarium is intact. The mastoids are clear. What appears to be prosthetic material is seen in the frontal scalp. The sinuses are clear. Impression: Negative. No acute intracranial bleed or mass effect Frontal scalp prosthesis incidentally noted. Correlate with surgical history ICD Codes: S09.90XA - Unspecified injury of head, initial encounter SNOMED: 986984655612, 607281371 (3) Symptomatic bradycardia ICD Codes: R00.1 - Bradycardia, unspecified SNOMED: 14721421, 720719301 (4) Complete heart block ICD Codes: I44.2 - Atrioventricular block, complete SNOMED: 12283609, 700247916 (5) Liver cirrhosis Assessment & Plan: Patient status post laparoscopic cholecystectomy. Patient with known history of Mena liver cirrhosis nonalcoholic etiology unknown does not state its hepatitis. She is undergoing care at [facility] liver center. Will order ultrasound to evaluate for potential intra-abdominal etiology of discomfort. No acute surgical invention at this time. Hold on CT scan as patient has had prior work-up. ICD Codes: K74.60 - Unspecified cirrhosis of liver SNOMED: 65382067 (6) Abnormal LFTs Assessment & Plan: Will trend labs. Amylase lipase ordered. Okay for diet from surgical standpoint. Tentatively n.p.o. after midnight for cardiology intervention. Will follow with recommendations thank you Guevara participate patient's care ICD Codes: R94.5 - Abnormal results of liver function studies SNOMED: 861204417 Joe Cabrera Feb 03, 2020 10:59
[2020-02-03] MEDS: NovoLOG Insulin Flexpen SUBQ SCH ×3 (12:12→21:00)
--- NOTE | 2020-02-03 12:45 | General Progress Note ---
Subjective Allergies: Coded Allergies: MORPHINE (Verified Allergy, Unknown, 02/02/20) Objective Last 24 Hour Vital Signs Date Time Temp Pulse Resp B/P (MAP) Pulse Ox O2 Delivery O2 Flow Rate FiO2 02/03/20 12:00 70 02/03/20 12:00 98.2 70 15 96/73 (81) 100 02/03/20 11:00 70 22 112/71 (85) 100 02/03/20 11:00 70 02/03/20 10:45 70 9 106/67 (80) 100 02/03/20 10:45 70 02/03/20 10:30 70 14 100/67 (78) 100 02/03/20 10:30 70 02/03/20 10:15 77 02/03/20 10:15 77 20 127/84 (98) 100 02/03/20 10:00 100 02/03/20 10:00 100 16 106/73 (84) 100 02/03/20 09:00 100 14 102/85 (91) 100 02/03/20 09:00 100 02/03/20 08:00 98.1 100 13 105/70 (82) 99 02/03/20 08:00 100 02/03/20 07:00 100 14 101/73 (82) 100 02/03/20 06:00 100 14 94/65 (75) 100 02/03/20 05:00 100 15 101/64 (76) 99 02/03/20 04:00 Nasal Cannula 2.0 02/03/20 04:00 2.0 02/03/20 04:00 98.6 100 15 101/64 (76) 99 02/03/20 04:00 100 02/03/20 03:00 100 14 111/76 (88) 100 02/03/20 02:00 100 15 101/73 (82) 100 02/03/20 01:00 100 15 113/69 (84) 100 02/03/20 00:00 98.6 100 15 103/67 (79) 100 02/03/20 00:00 Nasal Cannula 2.0 02/03/20 00:00 100 02/03/20 00:00 2.0 02/02/20 23:00 100 20 102/66 (78) 100 02/02/20 22:00 100 17 92/60 (71) 100 02/02/20 21:00 100 23 108/67 (81) 100 02/02/20 20:00 Nasal Cannula 2.0 02/02/20 20:00 100 02/02/20 20:00 2.0 02/02/20 20:00 98.4 100 21 101/70 (80) 100 02/02/20 19:30 99 26 111/73 (86) 100 02/02/20 19:00 100 21 103/79 (87) 100 02/02/20 18:30 100 20 109/69 (82) 100 02/02/20 18:00 100 20 103/69 (80) 100 02/02/20 17:45 100 24 104/69 (81) 100 02/02/20 17:30 100 22 108/61 (77) 100 02/02/20 17:15 100 21 109/70 (83) 100 02/02/20 17:00 100 21 111/69 (83) 100 02/02/20 16:45 100 20 98/61 (73) 99 02/02/20 16:30 100 16 111/70 (84) 100 02/02/20 16:15 98 28 129/76 (93) 100 02/02/20 16:00 98.6 100 26 135/108 (117) 100 02/02/20 16:00 2.0 02/02/20 16:00 100 02/02/20 15:45 102 26 119/72 (88) 100 02/02/20 15:32 Nasal Cannula 2.0 02/02/20 15:30 100 29 98/79 (85) 100 02/02/20 15:10 106 02/02/20 14:42 100 18 100 02/02/20 13:45 98.0 39 22 99/51 98 Room Air Intake and Output 02/02/20 02/03/20 19:00 07:00 Intake Total 145 ml 720 ml Output Total 1045 ml 790 ml Balance -900 ml -70 ml Intake Oral 0 ml IV Total 115 ml 720 ml Other 30 ml Output Urine Total 1045 ml 790 ml Laboratory Tests 02/02/20 17:50: Troponin I 0.259H 02/03/20 02:05: Troponin I 0.249H 02/03/20 04:30: White Blood Count 3.8L, Red Blood Count 4.31, Hemoglobin 10.9L, Hematocrit 35.2L , Mean Corpuscular Volume 82, Mean Corpuscular Hemoglobin 25.4L, Mean Demond uscular Hemoglobin Concent 31.1L, Red Cell Distribution Width 18.5H, Platelet Count 60L, Mean Platelet Volume 9.5, Neutrophils (%) (Auto) , Lymphocytes (%) (Auto) , Monocytes (%) (Auto) , Eosinophils (%) (Auto) , Basophils (%) (Auto) , Differential Total Cells Counted 100, Neutrophils % (Manual) 60, Lymphocytes % (Manual) 35, Monocytes % (Manual) 5, Eosinophils % (Manual) 0, Basophils % (Manual) 0, Band Neutrophils 0, Platelet Estimate DecreasedL, Platelet Morphology Normal, Hypochromasia 2+, Anisocytosis 1+, Microcytosis 2+, Sodium Level 139, Potassium Level 3.7, Chloride Level 105, Carbon Dioxide Level 24, Anion Gap 10, Blood Urea Nitrogen 14, Creatinine 0.7, Estimat Glomerular Filtra tion Rate > 60, Glucose Level 177H, Calcium Level 8.5, Pro-B-Type Natriuretic Peptide 868H, Thyroid Stimulating Hormone (TSH) 0.956, Free Thyroxine 1.29 Height (Feet): 5 Height (Inches): 5.00 Weight (Pounds): 68 General Appearance: no apparent distress EENT: normal ENT inspection Neck: supple Cardiovascular: normal rate Respiratory/Chest: decreased breath sounds Abdomen: normal bowel sounds, non tender, soft Extremities: non-tender Assessment/Plan Assessment/Plan: cirrhosis EV anemia thrombocytopenia heart block s/p pacemaker DM abd us hepatitis panel ammonia level hold propanolol given above Buster Heard MD Feb 03, 2020 12:45
--- NOTE | 2020-02-03 13:44 | Diagnostic Imaging Report ---
Indication: Syncope Technique: Grayscale and duplex images of the bilateral extracranial carotid and vertebral arteries Comparison: one Findings: Bilaterally, grayscale and duplex images demonstrate atherosclerotic plaquing resulting in less than 50% diameter narrowing. Normal Doppler flow velocities and waveforms. Patent bilateral vertebral arteries, antegrade flow. Impression: Less than 50% stenosis bilaterally All stenosis was measured based on the NASCET criteria. Velocity criteria are extrapolated from diameter data as defined by the Society of radiologists in ultrasound consensus conference. Radiology 2003:229; 340-346
--- NOTE | 2020-02-03 13:45 | Diagnostic Imaging Report ---
Indication: Bilateral leg pain Technique: Grayscale and duplex images of the bilateral lower extremity veins Comparison: none Findings: Right common femoral vein is obscured by bandages related to a femoral pacemaker. The remainder the venous segments are patent, without evidence of intraluminal thrombus. Normal phasic Doppler waveforms, normal compressibility. No evidence of valvular insufficiency. Calf veins and greater saphenous veins are patent Impression: Negative evidence of lower extremity venous thrombosis bilaterally Note limited visualization of the right common femoral vein
--- NOTE | 2020-02-03 15:34 | Anethesia Preoperative Eval ---
Anesthesia Pre-op PMH/ROS General Date of Evaluation: Feb 03, 2020 Time of Evaluation: 15:29 Anesthesiologist: Obdulio ASA Score: ASA 3 Mallampati Score Class I : Soft palate, uvula, fauces, pillars visible Class II: Soft palate, uvula, fauces visible Class III: Soft palate, base of uvula visible Class IV: Only hard plate visible Mallampati Classification: Class II Surgeon: Leela Diagnosis: Symptomatic bradycardia Surgical Procedure: Pacemaker placement Anesthesia History: none Social History: alcohol use - liver cirrosis possible abuse Family History: no anesthesia problems Allergies: Coded Allergies: MORPHINE (Verified Allergy, Unknown, 02/02/20) Medications: see eMAR Patient NPO?: Yes Past Medical History Cardiovascular: Reports: HTN, arrhythmia; Denies: CAD, AR, valve dz, other Pulmonary: Reports: asthma; Denies: COPD, [place], other Gastrointestinal/Genitourinary: Reports: GERD, other - liver cirrosis esophagial varices; Denies: CRI, ESRD Neurologic/Psychiatric: Reports: depression/anxiety; Denies: dementia, CVA, TIA, other Endocrine: Reports: DM, hypothyroidism - hyperthyroid?; Denies: steroids, other HEENT: Denies: cataract (L), cataract (R), glaucoma, [place] (L), [place] (R), other Hematology/Immune: Reports: anemia - mild, other - h/o blood transfusion Musculoskeletal/Integumentary: Reports: OA; Denies: RA, DJD, DDD, edema, other PMH Narrative: as above PSxH Narrative: see H&P Anesthesia Pre-op Phys. Exam Physician Exam Last Vital Signs Date Time Temp Pulse Resp B/P (MAP) Pulse Ox O2 Delivery O2 Flow Rate FiO2 02/03/20 14:00 70 16 91/52 (65) 99 02/03/20 12:00 2.0 02/03/20 12:00 Nasal Cannula 02/03/20 12:00 98.2 Constitutional: NAD Neurologic: CN 2-12 intact Cardiovascular: RRR, no M/R/G Respiratory: CTA Gastrointestinal: S/NT/ND Airway Exam Mallampati Score: Class II MO: full Neck: stiff ROM: limited Teeth: missing Dentures: no upper, no lower Anesthesia Pre-op A/P Labs Hematology Test 02/03/20 04:30 White Blood Count 3.8 K/UL (4.8-10.8) L Red Blood Count 4.31 M/UL (4.20-5.40) Hemoglobin 10.9 G/DL (12.0-16.0) L Hematocrit 35.2 % (37.0-47.0) L Mean Corpuscular Volume 82 FL (80-99) Mean Corpuscular Hemoglobin 25.4 PG (27.0-31.0) L Mean Corpuscular Hemoglobin Concent 31.1 G/DL (32.0-36.0) L Red Cell Distribution Width 18.5 % (11.6-14.8) H Platelet Count 60 K/UL (150-450) L Mean Platelet Volume 9.5 FL (6.5-10.1) Neutrophils (%) (Auto) % (45.0-75.0) Lymphocytes (%) (Auto) % (20.0-45.0) Monocytes (%) (Auto) % (1.0-10.0) Eosinophils (%) (Auto) % (0.0-3.0) Basophils (%) (Auto) % (0.0-2.0) Differential Total Cells Counted 100 Neutrophils % (Manual) 60 % (45-75) Lymphocytes % (Manual) 35 % (20-45) Monocytes % (Manual) 5 % (1-10) Eosinophils % (Manual) 0 % (0-3) Basophils % (Manual) 0 % (0-2) Band Neutrophils 0 % (0-8) Platelet Estimate Decreased L Platelet Morphology Normal Hypochromasia 2+ Anisocytosis 1+ Microcytosis 2+ Chemistry Test 02/02/20 17:50 02/03/20 02:05 02/03/20 04:30 Troponin I 0.259 ng/mL (0.000-0.056) 0.249 ng/mL (0.000-0.056) Sodium Level 139 MMOL/L (136-145) Potassium Level 3.7 MMOL/L (3.5-5.1) Chloride Level 105 MMOL/L (98-107) Carbon Dioxide Level 24 MMOL/L (21-32) Anion Gap 10 mmol/L (5-15) Blood Urea Nitrogen 14 mg/dL (7-18) Creatinine 0.7 MG/DL (0.55-1.30) Estimat Glomerular Filtration Rate > 60 mL/min (>60) Glucose Level 177 MG/DL (74-106) H Calcium Level 8.5 MG/DL (8.5-10.1) Pro-B-Type Natriuretic Peptide 868 pg/mL (0-125) H Thyroid Stimulating Hormone (TSH) 0.956 uiU/mL (0.358-3.740) Free Thyroxine 1.29 NG/DL (0.76-1.46) Risk Assessment & Plan Assessment: ASA 3 Plan: MAC Status Change Before Surgery: No Pre-Antibiotics Drug: as scheduled Camacho Mak MD Feb 03, 2020 15:34
--- NOTE | 2020-02-03 17:30 | Consultation ---
DATE OF CONSULTATION: 02/03/2020 PULMONARY CONSULTATION CONSULTING PHYSICIAN: Wes Martin MD. HISTORY OF PRESENT ILLNESS: This is a 54-year-old female with a history of liver cirrhosis, gastric varices, hypertension, and diabetes, who came to the hospital after having had a syncopal episode. The patient was seen and evaluated, admitted to the hospital. The patient is unable to provide any further history. She was found to be significantly bradycardic and received a transvenous pacemaker yesterday by Dr. Rodrigue Hanna from the right femoral vein. This morning, the patient is more awake and responsive. PAST MEDICAL HISTORY: Liver cirrhosis. ALLERGIES: To morphine. PREVIOUS SURGERIES: None reported. PHYSICAL EXAMINATION: GENERAL: Reveals a 54-year-old female. VITAL SIGNS: Blood pressure is 90/50, heart rate 70, respirations 18. O2 saturation 100% on room air. HEENT: Unremarkable. LUNGS: Clear breath sounds. ABDOMEN: Soft. EXTREMITIES: There is no edema. SKIN: There is evidence of previous laparoscopic cholecystectomy scar. LABORATORY DATA: Lab testing shows hemoglobin 10.9, otherwise normal CBC and BMP. Glucose 177. Coags are negative. Platelet count is 60,000. IMAGING STUDIES: Chest x-ray obtained yesterday shows mild cardiomegaly. IMPRESSION: 1. Bradycardia/heart block. 2. Hypotension. 3. Liver cirrhosis. DISCUSSION: The patient in the ICU being carefully monitored. she is a candidate for permanent pacemaker. Discussed with Dr. Hanna. We will monitor carefully in ICU, provide fluids and pulmonary hygiene. We will follow. Wes Martin M.D. DR: MARIA LUZ JOB#: [id number] CC:
--- NOTE | 2020-02-03 20:15 | History and Physical Report ---
DATE OF ADMISSION: 02/02/2020 HISTORY OF PRESENT ILLNESS: This is an elderly female who came with syncope, closed head injury, symptom of bradycardia, complete heart block, liver cirrhosis, and elevated LFTs. PAST MEDICAL HISTORY: Alcohol abuse, diabetes. Patient is also anxious. Past medical history significant for comorbid obesity, liver failure. MEDICATIONS: See the list. PHYSICAL EXAMINATION: GENERAL: This is an elderly obese [place] female, currently comfortable. VITAL SIGNS: Blood pressure 94/56, pulse 70s, respirations 20, temperature 97.2. HEENT: AT/NC. EOMI. PERRLA. NECK: Supple. No JVD. CHEST: Bilateral crackles. CARDIOVASCULAR: Regular rhythm. No gallop. No murmur. ABDOMEN: Soft. Positive bowel sounds. Nontender. EXTREMITIES: No edema. LABORATORY DATA: White count 6.4, hemoglobin 12, hematocrit, 37, platelets are 89. Chemistry panel, troponins are positive at 0.29. BNP was 868. Sodium 139, potassium 3.6, BUN 14, creatinine 0.7, glucose 177. EKG, nonspecific ST and T-wave changes. IMAGING: Chest x-ray has hypoaeration, mild cardiomegaly. demonstrated femoral temporary pacemaker that was placed by Cardiology. Head CT with no acute intracranial mass effect. Chest x-ray showing no acute process. ASSESSMENT: 1. Severe bradycardia. 2. Junctional rhythm. 3. Syncope. PLAN: Patient had temporary pacemaker placement and needs permanent pacemaker. Cardiology is on case. Pulmonary is also on case. We will currently continue current treatment. Patient is on insulin. Continue Protonix. Continue metformin, hydromorphone for pain, Tylenol. Benja Morales M.D. DR: TRAN JOB#: [id number] CC:
[2020-02-03] MEDS: Dyna-Hex 2% Top Sol 2oz TOPIC SCH (20:43)
[2020-02-04] VITALS (28 sets, daily range): BP systolic 94–141; BP diastolic 45–78
[2020-02-04] MEDS: Hydromorphone 0.5mg/0.5ml inj IVP PRN ×2 (01:15→21:27)
[2020-02-04] MEDS: D5NS 1,000 ML IV SCH ×2 (01:21→18:05)
--- NOTE | 2020-02-04 04:10 | Cardiology Report ---
APPROVED REPORT EKG Measurement Heart [id number] 160P [id number] <Conclusion> Atrial-sensed ventricular-paced rhythm Abnormal ECG
--- NOTE | 2020-02-04 04:10 | Cardiology Report ---
APPROVED REPORT EKG Measurement Heart [id number] <Conclusion> Sinus bradycardia with 1st degree AV block Incomplete right bundle branch block Prolonged QT Abnormal ECG
[2020-02-04 05:14] LABS: HEMATOCRIT 36.3 % (37.0-47.0); MEAN CORPUSCULAR VOLUME 83 FL (80-99); PLATELET COUNT 54 K/UL (150-450); RED BLOOD COUNT 4.38 M/UL (4.20-5.40); WHITE BLOOD COUNT 3.7 K/UL (4.8-10.8)
[2020-02-04 05:24] LABS: INR 1.1 (0.9-1.1)
[2020-02-04 05:55] LABS: ALANINE AMINOTRANSFERASE 45 U/L (12-78); ALBUMIN 2.5 G/DL (3.4-5.0); ALBUMIN/GLOBULIN RATIO 0.5 (1.0-2.7); ALKALINE PHOSPHATASE 123 U/L (46-116); ANION GAP 7 mmol/L (5-15); ASPARTATE AMINO TRANSFERASE 38 U/L (15-37); BILIRUBIN,TOTAL 0.7 MG/DL (0.2-1.0); BLOOD UREA NITROGEN 12 mg/dL (7-18); CALCIUM 8.2 MG/DL (8.5-10.1); CARBON DIOXIDE 25 MMOL/L (21-32); CHLORIDE 106 MMOL/L (98-107); CREATININE 0.8 MG/DL (0.55-1.30); POTASSIUM 3.8 MMOL/L (3.5-5.1); SODIUM 138 MMOL/L (136-145)
[2020-02-04] MEDS: NovoLOG Insulin Flexpen SUBQ SCH ×4 (06:12→21:28)
[2020-02-04 06:42] LABS: AMMONIA 125 umol/L (11-32)
[2020-02-04] MEDS: Pantoprazole Inj IVP SCH ×2 (08:32→20:08)
[2020-02-04] MEDS: metFORMIN 500mg tab ORAL SCH ×3 (08:32→17:30)
--- NOTE | 2020-02-04 09:08 | General Progress Note ---
Subjective Allergies: Coded Allergies: MORPHINE (Verified Allergy, Unknown, 02/02/20) Subjective more awake doing better Objective Last 24 Hour Vital Signs Date Time Temp Pulse Resp B/P (MAP) Pulse Ox O2 Delivery O2 Flow Rate FiO2 02/04/20 09:00 70 14 118/68 (85) 97 02/04/20 08:00 Nasal Cannula 2.0 02/04/20 08:00 2.0 02/04/20 08:00 97.9 70 17 107/74 (85) 97 02/04/20 07:00 70 19 117/67 (84) 94 02/04/20 06:00 70 17 96/78 (84) 95 02/04/20 05:00 70 17 101/56 (71) 95 02/04/20 04:00 98.4 70 17 107/59 (75) 94 02/04/20 04:00 70 02/04/20 04:00 Nasal Cannula 2.0 02/04/20 03:00 70 18 94/57 (69) 95 02/04/20 02:00 70 16 96/59 (71) 94 02/04/20 01:00 70 20 98/57 (71) 96 02/04/20 00:08 2.0 02/04/20 00:00 Nasal Cannula 2.0 02/04/20 00:00 98.0 70 19 99/58 (72) 96 02/04/20 00:00 70 02/03/20 23:00 70 22 109/61 (77) 96 02/03/20 22:00 70 18 101/63 (76) 98 02/03/20 21:00 70 17 94/51 (65) 96 02/03/20 20:00 97.5 70 19 101/55 (70) 96 02/03/20 20:00 Nasal Cannula 2.0 02/03/20 20:00 2.0 02/03/20 20:00 70 02/03/20 19:00 70 10 100/58 (72) 100 02/03/20 18:00 70 16 115/52 (73) 100 02/03/20 17:00 70 14 106/59 (75) 100 02/03/20 16:00 97.9 70 15 97/61 (73) 100 02/03/20 16:00 Nasal Cannula 2.0 11/3/20 16:00 2.0 02/03/20 16:00 70 02/03/20 15:00 70 15 93/61 (72) 100 02/03/20 14:00 70 16 91/52 (65) 99 02/03/20 13:00 70 15 94/56 (69) 100 02/03/20 12:00 2.0 02/03/20 12:00 70 02/03/20 12:00 Nasal Cannula 2.0 02/03/20 12:00 98.2 70 15 96/73 (81) 100 02/03/20 11:00 70 22 112/71 (85) 100 02/03/20 11:00 70 02/03/20 10:45 70 9 106/67 (80) 100 02/03/20 10:45 70 02/03/20 10:30 70 14 100/67 (78) 100 02/03/20 10:30 70 02/03/20 10:15 77 02/03/20 10:15 77 20 127/84 (98) 100 02/03/20 10:00 100 02/03/20 10:00 100 16 106/73 (84) 100 Intake and Output 02/03/20 02/04/20 19:00 07:00 Intake Total 1200 ml 720 ml Output Total 1135 ml 990 ml Balance 65 ml -270 ml Intake Oral 480 ml IV Total 720 ml 720 ml Output Urine Total 1135 ml 990 ml Laboratory Tests 02/04/20 03:20: White Blood Count 3.7L, Red Blood Count 4.38, Hemoglobin 11.0L, Hematocrit 36.3L , Mean Corpuscular Volume 83, Mean Corpuscular Hemoglobin 25.2L, Mean Corpuscular Hemoglobin Concent 30.4L, Red Cell Distribution Width 19.0H, Platelet Count 54L, Mean Platelet Volume 9.5, Neutrophils (%) (Auto) , Lymphocytes (%) (Auto) , Monocytes (%) (Auto) , Eosinophils (%) (Auto) , Basophils (%) (Auto) , Differential Total Cells Counted 100, Neutrophils % (Manual) 59, Lymphocytes % (Manual) 28, Monocytes % (Manual) 12H, Eosinophils % (Manual) 1, Basophils % (Manual) 0, Band Neutrophils 0, Platelet Estimate Decre asedL, Platelet Morphology Normal, Hypochromasia 2+, Anisocytosis 1+, Prothrombin Time 11.8H, Prothromb Time International Ratio 1.1, Activated Partial Thromboplast Time 31, Sodium Level 138, Potassium Level 3.8, Chloride Level 106, Carbon Dioxide Level 25, Anion Gap 7, Blood Urea Nitrogen 12, Creatinine 0.8, Estimat Glomerular Filtration Rate > 60, Glucose Level 224H, Calcium Level 8.2L, Total Bilirubin 0.7, Aspartate Amino Transf (AST/SGOT) 38H, Alanine Aminotransferase (ALT/SGPT) 45, Alkaline Phosphatase 123H, Ammonia 125H, Total Protein 7.7, Albumin 2.5L, Globulin 5.2, Albumin/Globulin Ratio 0.5L, Hepatitis A IgM Antibody [Pending], Hepatitis B Surface Antigen [Pending], Hepatitis B Core IgM Antibody [Pending], Hepatitis C Antibody [Pending] 02/04/20 05:18: POC Whole Blood Glucose 247H Height (Feet): 5 Height (Inches): 4.00 Weight (Pounds): 140 General Appearance: alert EENT: PERRL/EOMI Neck: supple Cardiovascular: bradycardia Respiratory/Chest: lungs clear Abdomen: soft, tender Neurologic: home health clinician II-XII grossly normal Assessment/Plan Assessment/Plan: 1 syncopy 2 cardiac arrthemia 3 htn 4 cirrosis for pacemaker today cont rest tx cont icu Jose Morales MD Feb 04, 2020 09:08
--- NOTE | 2020-02-04 09:31 | Pulmonology Progress Note ---
Subjective Interval Events: For PPM today Constitutional: Reports: no symptoms HEENT: Repors: no symptoms Respiratory: Reports: no symptoms Cardiovascular: Reports: no symptoms Gastrointestinal/Abdominal: Reports: no symptoms Allergies: Coded Allergies: MORPHINE (Verified Allergy, Unknown, 02/02/20) Objective Last 24 Hour Vital Signs Date Time Temp Pulse Resp B/P (MAP) Pulse Ox O2 Delivery O2 Flow Rate FiO2 02/04/20 09:00 70 14 118/68 (85) 97 02/04/20 08:00 Nasal Cannula 2.0 02/04/20 08:00 2.0 02/04/20 08:00 97.9 70 17 107/74 (85) 97 02/04/20 07:59 70 02/04/20 07:00 70 19 117/67 (84) 94 02/04/20 06:00 70 17 96/78 (84) 95 02/04/20 05:00 70 17 101/56 (71) 95 02/04/20 04:00 98.4 70 17 107/59 (75) 94 02/04/20 04:00 70 02/04/20 04:00 Nasal Cannula 2.0 02/04/20 03:00 70 18 94/57 (69) 95 02/04/20 02:00 70 16 96/59 (71) 94 02/04/20 01:00 70 20 98/57 (71) 96 02/04/20 00:08 2.0 02/04/20 00:00 Nasal Cannula 2.0 02/04/20 00:00 98.0 70 19 99/58 (72) 96 02/04/20 00:00 70 02/03/20 23:00 70 22 109/61 (77) 96 02/03/20 22:00 70 18 101/63 (76) 98 02/03/20 21:00 70 17 94/51 (65) 96 02/03/20 20:00 97.5 70 19 101/55 (70) 96 02/03/20 20:00 Nasal Cannula 2.0 02/03/20 20:00 2.0 02/03/20 20:00 70 02/03/20 19:00 70 10 100/58 (72) 100 02/03/20 18:00 70 16 115/52 (73) 100 02/03/20 17:00 70 14 106/59 (75) 100 02/03/20 16:00 97.9 70 15 97/61 (73) 100 02/03/20 16:00 Nasal Cannula 2.0 02/03/20 16:00 2.0 02/03/20 16:00 70 02/03/20 15:00 70 15 93/61 (72) 100 02/03/20 14:00 70 16 91/52 (65) 99 02/03/20 13:00 70 15 94/56 (69) 100 02/03/20 12:00 2.0 02/03/20 12:00 70 02/03/20 12:00 Nasal Cannula 2.0 02/03/20 12:00 98.2 70 15 96/73 (81) 100 02/03/20 11:00 70 22 112/71 (85) 100 02/03/20 11:00 70 02/03/20 10:45 70 9 106/67 (80) 100 02/03/20 10:45 70 02/03/20 10:30 70 14 100/67 (78) 100 02/03/20 10:30 70 02/03/20 10:15 77 02/03/20 10:15 77 20 127/84 (98) 100 02/03/20 10:00 100 02/03/20 10:00 100 16 106/73 (84) 100 Intake and Output 02/03/20 02/04/20 19:00 07:00 Intake Total 1200 ml 720 ml Output Total 1135 ml 990 ml Balance 65 ml -270 ml Intake Oral 480 ml IV Total 720 ml 720 ml Output Urine Total 1135 ml 990 ml General Appearance: no acute distress HEENT: normocephalic Respiratory: chest wall non-tender, lungs clear Cardiovascular: normal peripheral pulses, normal rate Abdomen: normal bowel sounds Microbiology Date/Time Source Procedure Growth Status 02/02/20 12:40 Nasopharynx SARS-CoV-2 RdRp Gene Assay - Final Complete Laboratory Tests 02/04/20 03:20: White Blood Count 3.7L, Red Blood Count 4.38, Hemoglobin 11.0L, Hematocrit 36.3L , Mean Corpuscular Volume 83, Mean Corpuscular Hemoglobin 25.2L, Mean Corpuscular Hemoglobin Concent 30.4L, Red Cell Distribution Width 19.0H, Platelet Count 54L, Mean Platelet Volume 9.5, Neutrophils (%) (Auto) , Lymphocytes (%) (Auto) , Monocytes (%) (Auto) , Eosinophils (%) (Auto) , Basophils (%) (Auto) , Differential Total Cells Counted 100, Neutrophils % (Manual) 59, Lymphocytes % (Manual) 28, Monocytes % (Manual) 12H, Eosinophils % (Manual) 1, Basophils % (Manual) 0, Band Neutrophils 0, Platelet Estimate DecreasedL, Platelet Morphology Normal, Hypochromasia 2+, Anisocytosis 1+, Prothrombin Time 11.8H, Prothromb Time International Ratio 1.1, Activated Partial Thromboplast Time 31, Sodium Level 138, Potassium Level 3.8, Chloride Level 106, Carbon Dioxide Level 25, Anion Gap 7, Blood Urea Nitrogen 12, Creatinine 0.8, Estimat Glomerular Filtration Rate > 60, Glucose Level 224H, Calcium Level 8.2L, Total Bilirubin 0.7, Aspartate Amino Transf (AST/SGOT) 38H, Alanine Aminotransferase (ALT/SGPT) 45, Alkaline Phosphatase 123H, Ammonia 125H, Total Protein 7.7, Albumin 2.5L, Globulin 5.2, Albumin/Globulin Ratio 0.5L, Hepatitis A IgM Antibody [Pending], Hepatitis B Surface Antigen [Pending], Hepatitis B Core IgM Antibody [Pending], Hepatitis C Antibody [Pending] 02/04/20 05:18: POC Whole Blood Glucose 247H Current Medications Medications (Trade) Dose Ordered Sig/Emma Route PRN Reason Start Time Stop Time Status Last Admin Dose Admin Acetaminophen (Tylenol) 650 mg Q4H PRN ORAL Moderate Pain (Pain Scale 4-6) 02/02/20 16:00 03/03/20 15:59 02/02/20 21:21 Chlorhexidine Gluconate (Heather-Hex 2%) 1 applic DAILY@1999 TOPIC 02/02/20 20:00 05/02/20 19:59 02/03/20 20:43 Dextrose (Dextrose 50%) 25 ml Q30M PRN IV Hypoglycemia 02/03/20 08:00 05/03/20 07:59 Dextrose (Dextrose 50%) 50 ml Q30M PRN IV Hypoglycemia 02/03/20 08:00 05/03/20 07:59 Dextrose/Sodium Chloride 1,000 ml @ 60 mls/hr [id number] IV 02/02/20 16:45 03/03/20 16:44 02/04/20 01:21 Hydromorphone HCl (Dilaudid) 0.25 mg Q4H PRN IVP Severe Pain (Pain Scale 7-10) 02/02/20 16:00 02/09/20 15:59 02/04/20 01:15 Insulin Aspart (NovoLOG) BEFORE MEALS AND HS SUBQ 02/03/20 11:30 05/03/20 11:29 02/04/20 06:12 Metformin HCl (Glucophage) 500 mg BID ORAL 02/02/20 18:00 03/03/20 17:59 02/03/20 17:09 Pantoprazole (Protonix) 40 mg EVERY 12 HOURS IVP 02/02/20 21:00 03/03/20 20:59 02/04/20 08:32 Assessment/Plan Assessment/Plan IMPRESSION: 1. Bradycardia/heart block. 2. Hypotension. 3. Liver cirrhosis. DISCUSSION: The patient in the ICU being carefully monitored. She is a candidate for permanent pacemaker. Discussed with Dr. Hanna. Careful ICU monitoring. Nico Bazan Omar Syed MD Feb 04, 2020 09:31
--- NOTE | 2020-02-04 09:38 | Surgery Progress Note ---
Surgery Progress Note Subjective Additional Comments no acute events lft's noted cxr reviewed cardiology input Objective Last 24 Hour Vital Signs Date Time Temp Pulse Resp B/P (MAP) Pulse Ox O2 Delivery O2 Flow Rate FiO2 02/04/20 09:00 70 14 118/68 (85) 97 02/04/20 08:00 Nasal Cannula 2.0 02/04/20 08:00 2.0 02/04/20 08:00 97.9 70 17 107/74 (85) 97 02/04/20 07:59 70 02/04/20 07:00 70 19 117/67 (84) 94 02/04/20 06:00 70 17 96/78 (84) 95 02/04/20 05:00 70 17 101/56 (71) 95 02/04/20 04:00 98.4 70 17 107/59 (75) 94 02/04/20 04:00 70 02/04/20 04:00 Nasal Cannula 2.0 02/04/20 03:00 70 18 94/57 (69) 95 02/04/20 02:00 70 16 96/59 (71) 94 02/04/20 01:00 70 20 98/57 (71) 96 02/04/20 00:08 2.0 02/04/20 00:00 Nasal Cannula 2.0 02/04/20 00:00 98.0 70 19 99/58 (72) 96 02/04/20 00:00 70 02/03/20 23:00 70 22 109/61 (77) 96 02/03/20 22:00 70 18 101/63 (76) 98 02/03/20 21:00 70 17 94/51 (65) 96 02/03/20 20:00 97.5 70 19 101/55 (70) 96 02/03/20 20:00 Nasal Cannula 2.0 02/03/20 20:00 2.0 02/03/20 20:00 70 02/03/20 19:00 70 10 100/58 (72) 100 02/03/20 18:00 70 16 115/52 (73) 100 02/03/20 17:00 70 14 106/59 (75) 100 02/03/20 16:00 97.9 70 15 97/61 (73) 100 02/03/20 16:00 Nasal Cannula 2.0 02/03/20 16:00 2.0 02/03/20 16:00 70 02/03/20 15:00 70 15 93/61 (72) 100 02/03/20 14:00 70 16 91/52 (65) 99 02/03/20 13:00 70 15 94/56 (69) 100 02/03/20 12:00 2.0 02/03/20 12:00 70 02/03/20 12:00 Nasal Cannula 2.0 02/03/20 12:00 98.2 70 15 96/73 (81) 100 02/03/20 11:00 70 22 112/71 (85) 100 02/03/20 11:00 70 02/03/20 10:45 70 9 106/67 (80) 100 02/03/20 10:45 70 02/03/20 10:30 70 14 100/67 (78) 100 02/03/20 10:30 70 02/03/20 10:15 77 02/03/20 10:15 77 20 127/84 (98) 100 02/03/20 10:00 100 02/03/20 10:00 100 16 106/73 (84) 100 I&O Intake and Output 02/03/20 02/04/20 19:00 07:00 Intake Total 1200 ml 720 ml Output Total 1135 ml 990 ml Balance 65 ml -270 ml Intake Oral 480 ml IV Total 720 ml 720 ml Output Urine Total 1135 ml 990 ml Cardiovascular: RSR Respiratory: decreased breath sounds Abdomen: non-tender, present bowel sounds Extremities: no edema, no tenderness, no cyanosis Laboratory Tests Test 02/04/20 03:20 02/04/20 05:18 White Blood Count 3.7 K/UL (4.8-10.8) L Red Blood Count 4.38 M/UL (4.20-5.40) Hemoglobin 11.0 G/DL (12.0-16.0) L Hematocrit 36.3 % (37.0-47.0) L Mean Corpuscular Volume 83 FL (80-99) Mean Corpuscular Hemoglobin 25.2 PG (27.0-31.0) L Mean Corpuscular Hemoglobin Concent 30.4 G/DL (32.0-36.0) L Red Cell Distribution Width 19.0 % (11.6-14.8) H Platelet Count 54 K/UL (150-450) L Mean Platelet Volume 9.5 FL (6.5-10.1) Neutrophils (%) (Auto) % (45.0-75.0) Lymphocytes (%) (Auto) % (20.0-45.0) Monocytes (%) (Auto) % (1.0-10.0) Eosinophils (%) (Auto) % (0.0-3.0) Basophils (%) (Auto) % (0.0-2.0) Differential Total Cells Counted 100 Neutrophils % (Manual) 59 % (45-75) Lymphocytes % (Manual) 28 % (20-45) Monocytes % (Manual) 12 % (1-10) H Eosinophils % (Manual) 1 % (0-3) Basophils % (Manual) 0 % (0-2) Band Neutrophils 0 % (0-8) Platelet Estimate Decreased L Platelet Morphology Normal Hypochromasia 2+ Anisocytosis 1+ Prothrombin Time 11.8 SEC (9.30-11.50) H Prothromb Time International Ratio 1.1 (0.9-1.1) Activated Partial Thromboplast Time 31 SEC (23-33) Sodium Level 138 MMOL/L (136-145) Potassium Level 3.8 MMOL/L (3.5-5.1) Chloride Level 106 MMOL/L (98-107) Carbon Dioxide Level 25 MMOL/L (21-32) Anion Gap 7 mmol/L (5-15) Blood Urea Nitrogen 12 mg/dL (7-18) Creatinine 0.8 MG/DL (0.55-1.30) Estimat Glomerular Filtration Rate > 60 mL/min (>60) Glucose Level 224 MG/DL (74-106) H Calcium Level 8.2 MG/DL (8.5-10.1) L Total Bilirubin 0.7 MG/DL (0.2-1.0) Aspartate Amino Transf (AST/SGOT) 38 U/L (15-37) H Alanine Aminotransferase (ALT/SGPT) 45 U/L (12-78) Alkaline Phosphatase 123 U/L (46-116) H Ammonia 125 umol/L (11-32) H Total Protein 7.7 G/DL (6.4-8.2) Albumin 2.5 G/DL (3.4-5.0) L Globulin 5.2 g/dL Albumin/Globulin Ratio 0.5 (1.0-2.7) L Hepatitis A IgM Antibody Pending Hepatitis B Surface Antigen Pending Hepatitis B Core IgM Antibody Pending Hepatitis C Antibody Pending POC Whole Blood Glucose 247 MG/DL (74-106) H Plan Problems: (1) Syncope (2) Closed head injury Assessment & Plan: No acute intracranial hemorrhage or edema, mass effect, nor midline shift. Normal keenan-white differentiation. Normal size ventricles and extra axial CSF spaces. The calvarium is intact. The mastoids are clear. What appears to be prosthetic material is seen in the frontal scalp. The sinuses are clear. Impression: Negative. No acute intracranial bleed or mass effect Frontal scalp prosthesis incidentally noted. Correlate with surgical history (3) Symptomatic bradycardia (4) Complete heart block (5) Liver cirrhosis Assessment & Plan: Patient status post laparoscopic cholecystectomy. Patient with known history of Mena liver cirrhosis nonalcoholic etiology unknown does not state its hepatitis. She is undergoing care at [facility] liver center. Will order ultrasound to evaluate for potential intra-abdominal etiology of discomfort. No acute surgical invention at this time. Hold on CT scan as patient has had prior work-up. (6) Abnormal LFTs Assessment & Plan: Will trend labs. Amylase lipase ordered. Okay for diet from surgical standpoint. Tentatively n.p.o. after midnight for cardiology intervention. Will follow with recommendations thank you Ismael nina patient's care DeborahJoe Feb 04, 2020 09:38
--- NOTE | 2020-02-04 09:55 | Diagnostic Imaging Report ---
Indication: Abdominal pain Technique: Kyle-scale and duplex images of the upper abdomen were obtained Comparison: none Findings: Gallbladder has been removed Common bile duct measures 3 mm in diameter. No intrahepatic biliary ductal dilatation. Liver demonstrates heterogeneous echogenicity and surface nodularity Portal vein and hepatic veins are patent. Pancreas is unremarkable. Spleen is mildly enlarged, measuring 13.4 cm long axis dimension, calculated volume 272 mL. Left kidney measures 11 point cm in length. Right kidney measures 10.9 cm length. Both kidneys demonstrate normal echogenicity. There is no hydronephrosis. No focal abnormality . Abdominal aorta is partially obscured by bowel gas, visualized portions are non-aneurysmal . No free fluid Impression: Echogenic with surface nodularity, suggestive of cirrhotic change. Surgically absent gallbladder, negative for dilated ducts Note incomplete visualization of the abdominal aorta
[2020-02-04] MEDS ORDERED: Midazolam 2mg/2ml Inj ONE (10:34)
[2020-02-04] MEDS ORDERED: fentaNYL 100 mcg/2 mL IV ONE (10:34)
[2020-02-04] MEDS ORDERED: Lidocaine 1% MPF 10mg/ml 5ml ONE (10:39)
[2020-02-04] MEDS ORDERED: Isovue-M 300 15ml INJ ONE (10:39)
[2020-02-04] MEDS ORDERED: Lidocaine 1% Plain 30 ml INJ ONE (10:39)
--- NOTE | 2020-02-04 11:03 | General Progress Note ---
Subjective ROS Limited/Unobtainable: Yes Allergies: Coded Allergies: MORPHINE (Verified Allergy, Unknown, 02/02/20) Objective Last 24 Hour Vital Signs Date Time Temp Pulse Resp B/P (MAP) Pulse Ox O2 Delivery O2 Flow Rate FiO2 02/04/20 10:00 70 15 110/69 (83) 98 02/04/20 09:00 70 14 118/68 (85) 97 02/04/20 08:00 Nasal Cannula 2.0 02/04/20 08:00 2.0 02/04/20 08:00 97.9 70 17 107/74 (85) 97 02/04/20 07:59 70 02/04/20 07:00 70 19 117/67 (84) 94 02/04/20 06:00 70 17 96/78 (84) 95 02/04/20 05:00 70 17 101/56 (71) 95 02/04/20 04:00 98.4 70 17 107/59 (75) 94 02/04/20 04:00 70 02/04/20 04:00 Nasal Cannula 2.0 02/04/20 03:00 70 18 94/57 (69) 95 02/04/20 02:00 70 16 96/59 (71) 94 02/04/20 01:00 70 20 98/57 (71) 96 02/04/20 00:08 2.0 02/04/20 00:00 Nasal Cannula 2.0 02/04/20 00:00 98.0 70 19 99/58 (72) 96 02/04/20 00:00 70 02/03/20 23:00 70 22 109/61 (77) 96 02/03/20 22:00 70 18 101/63 (76) 98 02/03/20 21:00 70 17 94/51 (65) 96 02/03/20 20:00 97.5 70 19 101/55 (70) 96 02/03/20 20:00 Nasal Cannula 2.0 02/03/20 20:00 2.0 02/03/20 20:00 70 02/03/20 19:00 70 10 100/58 (72) 100 02/03/20 18:00 70 16 115/52 (73) 100 02/03/20 17:00 70 14 106/59 (75) 100 02/03/20 16:00 97.9 70 15 97/61 (73) 100 02/03/20 16:00 Nasal Cannula 2.0 02/03/20 16:00 2.0 02/03/20 16:00 70 02/03/20 15:00 70 15 93/61 (72) 100 02/03/20 14:00 70 16 91/52 (65) 99 02/03/20 13:00 70 15 94/56 (69) 100 02/03/20 12:00 2.0 02/03/20 12:00 70 02/03/20 12:00 Nasal Cannula 2.0 02/03/20 12:00 98.2 70 15 96/73 (81) 100 Intake and Output 02/03/20 02/04/20 19:00 07:00 Intake Total 1200 ml 720 ml Output Total 1135 ml 1070 ml Balance 65 ml -350 ml Intake Oral 480 ml IV Total 720 ml 720 ml Output Urine Total 1135 ml 1070 ml Laboratory Tests 02/04/20 03:20: White Blood Count 3.7L, Red Blood Count 4.38, Hemoglobin 11.0L, Hematocrit 36.3L , Mean Corpuscular Volume 83, Mean Corpuscular Hemoglobin 25.2L, Mean Corpuscular Hemoglobin Concent 30.4L, Red Cell Distribution Width 19.0H, Platelet Count 54L, Mean Platelet Volume 9.5, Neutrophils (%) (Auto) , Lymphocytes (%) (Auto) , Monocytes (%) (Auto) , Eosinophils (%) (Auto) , Basophils (%) (Auto) , Differential Total Cells Counted 100, Neutrophils % (Manual) 59, Lymphocytes % (Manual) 28, Monocytes % (Manual) 12H, Eosinophils % (Manual) 1, Basophils % (Manual) 0, Band Neutrophils 0, Platelet Estimate DecreasedL, Platelet Morphology Normal, Hypochromasia 2+, Anisocytosis 1+, Prothrombin Time 11.8H, Prothromb Time International Ratio 1.1, Activated Partial Thromboplast Time 31, Sodium Level 138, Potassium Level 3.8, Chloride Level 106, Carbon Dioxide Level 25, Anion Gap 7, Blood Urea Nitrogen 12, Creatinine 0.8, Estimat Glomerular Filtration Rate > 60, Glucose Level 224H, Calcium Level 8.2L, Total Bilirubin 0.7, Aspartate Amino Transf (AST/SGOT) 38H, Alanine Aminotransferase (ALT/SGPT) 45, Alkaline Phosphatase 123H, Ammonia 125H, Total Protein 7.7, Albumin 2.5L, Globulin 5.2, Albumin/Globulin Ratio 0.5L, Hepatitis A IgM Antibody [Pending], Hepatitis B Surface Antigen [Pending], Hepatitis B Core IgM Antibody [Pending], Hepatitis C Antibody [Pending] 02/04/20 05:18: POC Whole Blood Glucose 247H Height (Feet): 5 Height (Inches): 4.00 Weight (Pounds): 140 General Appearance: alert EENT: normal ENT inspection Neck: supple Cardiovascular: normal rate Respiratory/Chest: decreased breath sounds Abdomen: normal bowel sounds, non tender, soft Extremities: non-tender Assessment/Plan Assessment/Plan: cirrhosis EV anemia thrombocytopenia heart block s/p pacemaker DM abd us hepatitis panel ammonia level>>>125>> start lactulose and Xifaxan hold propanolol given above Buster Heard MD Feb 04, 2020 11:03
[2020-02-04] MEDS ORDERED: Heparin 1000 units/ml 1ml Vial ONE (12:13)
--- NOTE | 2020-02-04 12:50 | Immediate Post-Op Evaluation ---
Immediate Post-Op Evalulation Immediate Post-Op Evalulation Procedure: Permanent pacemaker placement Date of Evaluation: Feb 04, 2020 Time of Evaluation: 12:48 IV Fluids: 300 Blood Products: none Estimated Blood Loss: 30 Urinary Output: 100 Blood Pressure Systolic: 128 Blood Pressure Diastolic: 74 Pulse Rate: 70 Respiratory Rate: 18 O2 Sat by Pulse Oximetry: 99 Temperature (Fahrenheit): 97.7 Pain Score (1-10): 1 Nausea: No Vomiting: No Complications none Patient Status: awake, patent, none Hydration Status: adequate Camacho Mak MD Feb 04, 2020 12:50
[2020-02-04] MEDS: Lactulose 20gm/30ml UDC ORAL SCH ×2 (13:00→17:31)
--- NOTE | 2020-02-04 13:12 | Pre-Procedure Note/Attestation ---
Pre-Procedure Note/Attestation Complete Prior to Procedure Planned Procedure: left Procedure Narrative: Permanent pacer placement and removal of temporary pacer Indications for Procedure Pre-Operative Diagnosis: CHB. Attestation I attest that I discussed the nature of the procedure; its benefits; risks and complications; and alternatives (and the risks and benefits of such alternatives), prior to the procedure, with the patient (or the patient's legal chemical sales representative). I attest that, if there was a reasonable possibility of needing a blood transfusion, the patient (or the patient's legal chemical sales representative) was given the [facility] standardized written summary, pursuant to the [place] Blood Safety Act ([place] Health and Safety Code # 1645, as amended). I attest that I re-evaluated the patient just prior to the surgery and that there has been no change in the patient's H&P, except as documented below: Rodrigue Hanna MD Feb 04, 2020 13:12
--- NOTE | 2020-02-04 13:17 | Cardiac Electrophysiology PN ---
Assessment/Plan Assessment/Plan 1. Intermittent complete heart block and syncope. S/P Transvenous temporary pacemaker placement by me S/P [facility] permanent pacer placement and removal of temporary pacer today. 2. Troponin elevation, 0.216. 0.2 and 0.2. Levels are low and Flat. No CP. ECG May need cardiac catheterization after PPM implant 3. Cirrhosis of the liver. 4. Diabetes, on metformin. LINO RN Subjective Subjective Just underwent PPM implant and removal of temporary pacer. Objective Last 24 Hour Vital Signs Date Time Temp Pulse Resp B/P (MAP) Pulse Ox O2 Delivery O2 Flow Rate FiO2 02/04/20 13:00 72 20 113/71 100 Nasal Cannula 3 02/04/20 12:50 70 18 99 02/04/20 12:45 97.4 72 20 108/72 100 Simple Mask 5 02/04/20 12:00 Nasal Cannula 2.0 02/04/20 11:15 2.0 02/04/20 11:00 70 20 108/68 (81) 99 02/04/20 10:00 70 15 110/69 (83) 98 02/04/20 09:00 70 14 118/68 (85) 97 02/04/20 08:00 Nasal Cannula 2.0 02/04/20 08:00 2.0 02/04/20 08:00 97.9 70 17 107/74 (85) 97 02/04/20 07:59 70 02/04/20 07:00 70 19 117/67 (84) 94 02/04/20 06:00 70 17 96/78 (84) 95 02/04/20 05:00 70 17 101/56 (71) 95 02/04/20 04:00 98.4 70 17 107/59 (75) 94 02/04/20 04:00 70 02/04/20 04:00 Nasal Cannula 2.0 02/04/20 03:00 70 18 94/57 (69) 95 02/04/20 02:00 70 16 96/59 (71) 94 02/04/20 01:00 70 20 98/57 (71) 96 02/04/20 00:08 2.0 02/04/20 00:00 Nasal Cannula 2.0 02/04/20 00:00 98.0 70 19 99/58 (72) 96 02/04/20 00:00 70 02/03/20 23:00 70 22 109/61 (77) 96 02/03/20 22:00 70 18 101/63 (76) 98 02/03/20 21:00 70 17 94/51 (65) 96 02/03/20 20:00 97.5 70 19 101/55 (70) 96 02/03/20 20:00 Nasal Cannula 2.0 02/03/20 20:00 2.0 02/03/20 20:00 70 02/03/20 19:00 70 10 100/58 (72) 100 02/03/20 18:00 70 16 115/52 (73) 100 02/03/20 17:00 70 14 106/59 (75) 100 02/03/20 16:00 97.9 70 15 97/61 (73) 100 02/03/20 16:00 Nasal Cannula 2.0 02/03/20 16:00 2.0 02/03/20 16:00 70 02/03/20 15:00 70 15 93/61 (72) 100 02/03/20 14:00 70 16 91/52 (65) 99 Intake and Output 02/03/20 02/04/20 19:00 07:00 Intake Total 1200 ml 720 ml Output Total 1135 ml 1070 ml Balance 65 ml -350 ml Intake Oral 480 ml IV Total 720 ml 720 ml Output Urine Total 1135 ml 1070 ml Laboratory Tests Test 02/04/20 03:20 02/04/20 05:18 White Blood Count 3.7 K/UL (4.8-10.8) L Red Blood Count 4.38 M/UL (4.20-5.40) Hemoglobin 11.0 G/DL (12.0-16.0) L Hematocrit 36.3 % (37.0-47.0) L Mean Corpuscular Volume 83 FL (80-99) Mean Corpuscular Hemoglobin 25.2 PG (27.0-31.0) L Mean Corpuscular Hemoglobin Concent 30.4 G/DL (32.0-36.0) L Red Cell Distribution Width 19.0 % (11.6-14.8) H Platelet Count 54 K/UL (150-450) L Mean Platelet Volume 9.5 FL (6.5-10.1) Neutrophils (%) (Auto) % (45.0-75.0) Lymphocytes (%) (Auto) % (20.0-45.0) Monocytes (%) (Auto) % (1.0-10.0) Eosinophils (%) (Auto) % (0.0-3.0) Basophils (%) (Auto) % (0.0-2.0) Differential Total Cells Counted 100 Neutrophils % (Manual) 59 % (45-75) Lymphocytes % (Manual) 28 % (20-45) Monocytes % (Manual) 12 % (1-10) H Eosinophils % (Manual) 1 % (0-3) Basophils % (Manual) 0 % (0-2) Band Neutrophils 0 % (0-8) Platelet Estimate Decreased L Platelet Morphology Normal Hypochromasia 2+ Anisocytosis 1+ Prothrombin Time 11.8 SEC (9.30-11.50) H Prothromb Time International Ratio 1.1 (0.9-1.1) Activated Partial Thromboplast Time 31 SEC (23-33) Sodium Level 138 MMOL/L (136-145) Potassium Level 3.8 MMOL/L (3.5-5.1) Chloride Level 106 MMOL/L (98-107) Carbon Dioxide Level 25 MMOL/L (21-32) Anion Gap 7 mmol/L (5-15) Blood Urea Nitrogen 12 mg/dL (7-18) Creatinine 0.8 MG/DL (0.55-1.30) Estimat Glomerular Filtration Rate > 60 mL/min (>60) Glucose Level 224 MG/DL (74-106) H Calcium Level 8.2 MG/DL (8.5-10.1) L Total Bilirubin 0.7 MG/DL (0.2-1.0) Aspartate Amino Transf (AST/SGOT) 38 U/L (15-37) H Alanine Aminotransferase (ALT/SGPT) 45 U/L (12-78) Alkaline Phosphatase 123 U/L (46-116) H Ammonia 125 umol/L (11-32) H Total Protein 7.7 G/DL (6.4-8.2) Albumin 2.5 G/DL (3.4-5.0) L Globulin 5.2 g/dL Albumin/Globulin Ratio 0.5 (1.0-2.7) L Hepatitis A IgM Antibody Pending Hepatitis B Surface Antigen Pending Hepatitis B Core IgM Antibody Pending Hepatitis C Antibody Pending POC Whole Blood Glucose 247 MG/DL (74-106) H Microbiology Date/Time Source Procedure Growth Status 02/02/20 12:40 Nasopharynx SARS-CoV-2 RdRp Gene Assay - Final Complete Objective HEAD AND NECK: No JVD. LUNGS: Clear. CARDIOVASCULAR: Regular S1 and S2 with no G/R/M. Pacer left subclavian with no hematoma ABDOMEN: Soft, status post laparoscopic cholecystectomy. EXTREMITIES: No pitting edema. Right groin no hematoma Rodrigue Hanna MD Feb 04, 2020 13:17
[2020-02-04] MEDS ORDERED: Tylenol #3 tab (300mg/30mg) ORAL PRN (13:30)
--- NOTE | 2020-02-04 16:29 | Diagnostic Imaging Report ---
Indication: Status post pacemaker placement Technique: One view of the chest Comparison: 02/02/2020 Findings: . Left chest pacemaker, lead tips in the expected region of the right atrium and right ventricular apex. The lungs and pleural space remain clear. No pneumothorax. Impression: Apparent satisfactory pacemaker placement. No radiographically evident, location
--- NOTE | 2020-02-04 16:33 | Diagnostic Imaging Report ---
INDICATION: Pain, intraoperative TECHNIQUE: Intraoperative imaging Fluoroscopy time: 100.9 seconds Total dose: 0.42837 mGym2 Total number of images: 3 COMPARISON: None FINDINGS: Intraoperative images demonstrate placement of pacemaker wires, lead tips in the expected region of the right atrium and right ventricular apex, and removal of pre-existing temporary pacemaker. IMPRESSION: Intraoperative imaging, as described
--- NOTE | 2020-02-04 18:30 | Operative Note - Dictated ---
DATE OF OPERATION: 02/04/2020 PERMANENT PACEMAKER IMPLANTATION SURGEON: Rodrigue Hanna MD INDICATION FOR THE PROCEDURE: Complete heart block in a patient with syncope, who necessitated emergency temporary pacer placement. OPERATIVE REPORT: Patient was brought into the operating room in a fasting state and after informed consent was obtained. Patient received antibiotics within an hour of incision. Time-out was performed. After prep and drape under sterile condition and after anesthesia by the anesthesiologist, a total of 30 mL lidocaine was given to left prepectoralis area. An incision was made along the left deltopectoral groove. Sharp and blunt dissection was made to the level of pectoralis fascia. The cephalic vein was isolated and cutdown was performed. The right atrial and right ventricular lead was placed through this access and was placed in right atrial appendage and right ventricular apex with atrial sensing and pacing parameters. Both leads were then affixed to underlying pectoralis fascia. A pocket was made close to the venous access site and was irrigated with antibiotic solution. Both these were then connected to the pacemaker and left in the pocket. The pocket was closed in three layers using 2-0 Vicryl and Dermabond. After the procedure, the temporary transvenous pacer was also removed from right femoral vein area under fluoroscopic guidance to make sure it does not dislodge the newly placed right atrial and right ventricular lead. FINDINGS: The pacemaker is from [employer]. It is [id number], serial number is #[id number]. The right atrial lead is from [facility] [facility] [employer], serial number is #[id number], it is 2088TC, 46 cm. The right ventricular lead is from [facility] [facility] [employer], it is 2088TC, 52 cm, serial number is #[id number]. The P-wave amplitude is 3.2 mV, threshold is 1 V at 0.4 milliseconds, impedance of 490 ohms. There is no underlying R-wave. The ventricular threshold is 1 volt at 0.4 milliseconds, impedance of 610 ohms. IMPRESSION: 1. Successful dual-chamber permanent pacemaker implantation. 2. Successful removal of temporary pacing wire under fluoroscopic guidance from right femoral vein area. 3. Pacemaker was programmed to DDD, low rate of 70, high rate of 130. 4. No immediate complications from the procedure. Rodrigue Hanna M.D. DR: SUSAN JOB#: [id number] CC:
[2020-02-04] MEDS: Dyna-Hex 2% Top Sol 2oz TOPIC SCH (20:07)
[2020-02-04] MEDS: ceFAZolin sod 1 GM in D5W 55 ML IVP SCH (20:07)
[2020-02-04] MEDS ORDERED: D5NS 1000ml IV ONE (21:17)
[2020-02-04] MEDS ORDERED: NS 275ml ONE (21:17)
[2020-02-04] MEDS ORDERED: D5 1/2NS 1000ml IV ONE (21:17)
[2020-02-05] VITALS (17 sets, daily range): BP systolic 98–127; BP diastolic 59–85
[2020-02-05] MEDS: ceFAZolin sod 1 GM in D5W 55 ML IVP SCH ×3 (02:59→20:00)
[2020-02-05 04:39] LABS: HEMATOCRIT 33.6 % (37.0-47.0); HEMOGLOBIN 10.3 G/DL (12.0-16.0); MEAN CORPUSCULAR VOLUME 83 FL (80-99); PLATELET COUNT 41 K/UL (150-450); RED BLOOD COUNT 4.03 M/UL (4.20-5.40); RED CELL DISTRIBUTION WIDTH 18.5 % (11.6-14.8); WHITE BLOOD COUNT 2.3 K/UL (4.8-10.8)
[2020-02-05 05:00] LABS: INR 1.1 (0.9-1.1)
[2020-02-05 05:19] LABS: AMMONIA 31 umol/L (11-32)
[2020-02-05 05:28] LABS: ALANINE AMINOTRANSFERASE 70 U/L (12-78); ALBUMIN 2.5 G/DL (3.4-5.0); ALBUMIN/GLOBULIN RATIO 0.6 (1.0-2.7); ALKALINE PHOSPHATASE 143 U/L (46-116); ANION GAP 7 mmol/L (5-15); ASPARTATE AMINO TRANSFERASE 91 U/L (15-37); BLOOD UREA NITROGEN 7 mg/dL (7-18); CALCIUM 8.2 MG/DL (8.5-10.1); CARBON DIOXIDE 26 MMOL/L (21-32); CHLORIDE 105 MMOL/L (98-107); CREATININE 0.6 MG/DL (0.55-1.30); POTASSIUM 3.5 MMOL/L (3.5-5.1); SODIUM 138 MMOL/L (136-145)
[2020-02-05] MEDS: Hydromorphone 0.5mg/0.5ml inj IVP PRN ×3 (05:37→21:34)
[2020-02-05] MEDS: NovoLOG Insulin Flexpen SUBQ SCH ×4 (05:38→23:24)
--- NOTE | 2020-02-05 06:45 | Consultation ---
History of Present Illness General Chief Complaint: Syncope Present Illness Allergies: Coded Allergies: MORPHINE (Verified Allergy, Unknown, 02/02/20) Medication History Scheduled Metformin Hcl* (Metformin Hcl*), Unknown Dose ORAL TWICE A DAY, (Reported) Pantoprazole Sodium (Protonix), Unknown Dose ORAL DAILY, (Reported) Tramadol Hcl (Tramadol Hcl), Unknown Dose ORAL DAILY, (Reported) Miscellaneous Medications Albuterol Sulfate (Proventil Hfa), 6.7 GM IH, (Reported) Propranolol HCl (Propranolol HCl ER), Unknown Dose GT, (Reported) Patient History Healthcare decision maker Resuscitation status Advanced Directive on File Physical Exam Last 24 Hour Vital Signs Date Time Temp Pulse Resp B/P (MAP) Pulse Ox O2 Delivery O2 Flow Rate FiO2 02/05/20 06:00 70 16 122/69 (86) 100 02/05/20 05:00 70 14 127/63 (84) 100 02/05/20 04:00 98.1 72 13 112/64 (80) 100 02/05/20 04:00 Nasal Cannula 2.0 02/05/20 04:00 2.0 02/05/20 03:33 77 02/05/20 03:00 71 14 98/82 (87) 100 02/05/20 02:00 72 16 113/63 (80) 100 02/05/20 01:00 77 15 114/66 (82) 100 02/05/20 00:00 Nasal Cannula 2.0 02/05/20 00:00 98.0 78 18 111/65 (80) 100 02/04/20 23:10 76 02/04/20 23:00 77 19 120/62 (81) 100 02/04/20 22:00 73 16 108/55 (72) 100 02/04/20 21:00 84 20 105/75 (85) 100 02/04/20 20:00 2.0 02/04/20 20:00 Nasal Cannula 2.0 02/04/20 20:00 98.2 79 17 117/60 (79) 100 02/04/20 19:24 83 02/04/20 19:21 98 Nasal Cannula 2.0 28 02/04/20 19:00 82 17 119/45 (69) 100 02/04/20 18:00 82 18 117/58 (77) 100 11/4/20 17:00 70 15 113/59 (77) 100 02/04/20 16:15 70 02/04/20 16:00 Nasal Cannula 2.0 02/04/20 16:00 98.0 70 15 125/65 (85) 100 02/04/20 16:00 2.0 02/04/20 15:30 73 17 121/64 (83) 100 02/04/20 15:00 70 13 118/69 (85) 100 02/04/20 14:30 78 19 97/58 (71) 100 02/04/20 14:00 71 13 116/70 (85) 100 02/04/20 13:40 72 17 141/64 (89) 100 02/04/20 13:29 71 02/04/20 13:25 98.2 70 14 119/63 (81) 100 02/04/20 13:25 Nasal Cannula 2.0 02/04/20 13:00 72 20 113/71 100 Nasal Cannula 3 02/04/20 12:50 70 18 99 02/04/20 12:45 97.4 72 20 108/72 100 Simple Mask 5 02/04/20 12:00 Nasal Cannula 2.0 02/04/20 11:15 2.0 02/04/20 11:00 70 20 108/68 (81) 99 02/04/20 10:00 70 15 110/69 (83) 98 02/04/20 09:00 70 14 118/68 (85) 97 02/04/20 08:00 Nasal Cannula 2.0 02/04/20 08:00 2.0 02/04/20 08:00 97.9 70 17 107/74 (85) 97 02/04/20 07:59 70 02/04/20 07:00 70 19 117/67 (84) 94 Intake and Output 02/04/20 02/05/20 19:00 07:00 Intake Total 1190 ml 1820 ml Output Total 870 ml 1710 ml Balance 320 ml 110 ml Intake Oral 370 ml 1050 ml IV Total 820 ml 770 ml Output Urine Total 870 ml 1710 ml # Bowel Movements 2 Laboratory Tests Test 02/04/20 20:00 02/05/20 03:50 Stool Occult Blood Pending White Blood Count 2.3 K/UL (4.8-10.8) L Red Blood Count 4.03 M/UL (4.20-5.40) L Hemoglobin 10.3 G/DL (12.0-16.0) L Hematocrit 33.6 % (37.0-47.0) L Mean Corpuscular Volume 83 FL (80-99) Mean Corpuscular Hemoglobin 25.4 PG (27.0-31.0) L Mean Corpuscular Hemoglobin Concent 30.5 G/DL (32.0-36.0) L Red Cell Distribution Width 18.5 % (11.6-14.8) H Platelet Count 41 K/UL (150-450) L Mean Platelet Volume 8.2 FL (6.5-10.1) Neutrophils (%) (Auto) % (45.0-75.0) Lymphocytes (%) (Auto) % (20.0-45.0) Monocytes (%) (Auto) % (1.0-10.0) Eosinophils (%) (Auto) % (0.0-3.0) Basophils (%) (Auto) % (0.0-2.0) Neutrophils % (Manual) Pending Lymphocytes % (Manual) Pending Platelet Estimate Pending Platelet Morphology Pending Prothrombin Time 12.3 SEC (9.30-11.50) H Prothromb Time International Ratio 1.1 (0.9-1.1) Sodium Level 138 MMOL/L (136-145) Potassium Level 3.5 MMOL/L (3.5-5.1) Chloride Level 105 MMOL/L (98-107) Carbon Dioxide Level 26 MMOL/L (21-32) Anion Gap 7 mmol/L (5-15) Blood Urea Nitrogen 7 mg/dL (7-18) Creatinine 0.6 MG/DL (0.55-1.30) Estimat Glomerular Filtration Rate > 60 mL/min (>60) Glucose Level 184 MG/DL (74-106) H Calcium Level 8.2 MG/DL (8.5-10.1) L Total Bilirubin 1.0 MG/DL (0.2-1.0) Aspartate Amino Transf (AST/SGOT) 91 U/L (15-37) H Alanine Aminotransferase (ALT/SGPT) 70 U/L (12-78) Alkaline Phosphatase 143 U/L (46-116) H Ammonia 31 umol/L (11-32) Total Protein 6.8 G/DL (6.4-8.2) Albumin 2.5 G/DL (3.4-5.0) L Globulin 4.3 g/dL Albumin/Globulin Ratio 0.6 (1.0-2.7) L Height (Feet): 5 Height (Inches): 4.00 Weight (Pounds): 140 Medications Current Medications Medications (Trade) Dose Ordered Sig/Emma Route PRN Reason Start Time Stop Time Status Last Admin Dose Admin Acetaminophen (Tylenol) 650 mg Q4H PRN ORAL Moderate Pain (Pain Scale 4-6) 02/02/20 16:00 03/03/20 15:59 02/02/20 21:21 Acetaminophen/ Codeine Phosphate (Tylenol #3) 1 tab Q4H PRN ORAL Moderate Pain (Pain Scale 4-6) 02/04/20 13:30 02/11/20 13:29 Cefazolin Sodium 1 gm/Dextrose 55 ml @ 110 mls/hr Q8H IVP 02/04/20 20:00 02/11/20 19:59 02/05/20 02:59 Dextrose (Dextrose 50%) 25 ml Q30M PRN IV Hypoglycemia 02/03/20 08:00 05/03/20 07:59 Dextrose (Dextrose 50%) 50 ml Q30M PRN IV Hypoglycemia 02/03/20 08:00 05/03/20 07:59 Dextrose/Sodium Chloride 1,000 ml @ 60 mls/hr [id number] IV 02/02/20 16:45 03/03/20 16:44 02/04/20 18:05 Hydromorphone HCl (Dilaudid) 0.25 mg Q4H PRN IVP Severe Pain (Pain Scale 7-10) 02/02/20 16:00 02/09/20 15:59 02/05/20 05:37 Insulin Aspart (NovoLOG) BEFORE MEALS AND HS SUBQ 02/03/20 11:30 05/03/20 11:29 02/05/20 05:38 Lactulose (Cephulac) 30 gm THREE TIMES A DAY ORAL 02/04/20 13:00 03/05/20 12:59 02/04/20 17:31 Metformin HCl (Glucophage) 500 mg BID ORAL 02/02/20 18:00 12/2/20 17:59 02/04/20 17:30 Ondansetron HCl (Zofran) 4 mg Q6H PRN IVP Nausea & Vomiting 02/04/20 13:30 03/05/20 13:29 Pantoprazole (Protonix) 40 mg EVERY 12 HOURS IVP 02/02/20 21:00 03/03/20 20:59 02/04/20 20:08 Rifaximin (Xifaxan) 550 mg EVERY 12 HOURS ORAL 02/04/20 21:00 02/11/20 20:59 02/04/20 20:08 Assessment/Plan Assessment/Plan: Hematology Consultation REQ MD: Benja Morales RFC: Ongoing pancytopenia DOS: 02/05/2020 ID 54-year-old female history of cirrhosis, varices, diabetes presents after a syncopal episode. Patient states she was feeling dizzy while eating breakfast and passed out hitting her head. Since that time she has felt dizzy. She has a history of cirrhosis but denies any melena or hematochezia. She has required blood transfusions in the past most recently in December. She denies any fevers. Does complain of a left-sided headache at the site where she hit her head. No nausea no vomiting no chest pain but does complain of palpitations. plt 41k, with pancytopenia with pacer placed and heme was consulted. Allergies: MORPHINE (Verified Allergy, Unknown, 02/02/20) COVID-19 Screening Contact w/high risk pt: No Experienced COVID-19 symptoms?: No COVID-19 Testing performed NC MACHINIST: No Patient History Reviewed Nursing Documentation: PMH: Agreed; PSxH: Agreed Nursing Documentation-PMH Hx Diabetes: Yes Review of Systems negative except mentioned in HPI Physical Exam Vitals: reviewed General: no apparent distress + Pale appearing Heent: hearing grossly normal, moist mucus membranes Neck: full range of motion, supple, other - No midline tenderness Respiratory: lungs clear, normal breath sounds Cardiovascular: normal peripheral pulses, no murmur, ++ pacemaker v paced Gastrointestinal: non tender, soft, non-distended, no guarding Neurologic: alert, oriented x3, no focal defects Skin: normal color, pallor Labs: reviewed Imaging: noted Assessment/Recs # Pancytopenia is likely related to history of cirrhosis, this is the first time she has been here, does show cirrhosis on the us abd --> us Echogenic with surface nodularity, suggestive of cirrhotic change -> hep and hiv has been ordered, results negative --> wbc 2.3 --> hgb 10 --> plt 41 --> smear has been reviewed --> abx as needed --> smear has been noted --> anemia panel has been ordered as well # Liver cirrhosis --> ongoing history --> start lactulose and Xifaxan # Syncope may be related to hear block --> s/p placement opf dualcmaber pacemaker # Symptomatic bradycardia # Closed head injury # Successful dual-chamber permanent pacemaker implantation. # DM2 # Dvt ppx scds Appreciate consultation and dw Ellis Freeman MD Feb 05, 2020 06:45
[2020-02-05 08:21] LABS: FERRITIN 23 NG/ML (8-388); LACTATE DEHYDROGENASE 187 U/L (81-234)
--- NOTE | 2020-02-05 08:48 | 48 Hour Post Anesthesia Eval ---
Post Anesthesia Evaluation Procedure: Permanent pacemaker placement Date of Evaluation: Feb 05, 2020 Time of Evaluation: 08:47 Blood Pressure Systolic: 116 0: 74 Pulse Rate: 82 Respiratory Rate: 20 Temperature (Fahrenheit): 97.6 O2 Sat by Pulse Oximetry: 98 Airway: patent Nausea: No Vomiting: No Pain Intensity: 2 Hydration Status: adequate Cardiopulmonary Status: stable Mental Status/LOC: patient returned to baseline Follow-up Care/Observations: n/a Post-Anesthesia Complications: none Follow-up care needed: N/A Camacho Mak MD Feb 05, 2020 08:48
--- NOTE | 2020-02-05 09:02 | Pulmonology Progress Note ---
Subjective ROS Limited/Unobtainable: Yes Interval Events: S/p PPM Constitutional: Reports: no symptoms HEENT: Repors: no symptoms Respiratory: Reports: no symptoms Cardiovascular: Reports: no symptoms Gastrointestinal/Abdominal: Reports: no symptoms Allergies: Coded Allergies: MORPHINE (Verified Allergy, Unknown, 02/02/20) Objective Last 24 Hour Vital Signs Date Time Temp Pulse Resp B/P (MAP) Pulse Ox O2 Delivery O2 Flow Rate FiO2 02/05/20 08:48 82 20 98 02/05/20 08:00 Nasal Cannula 2.0 02/05/20 08:00 97.9 81 15 110/64 (79) 100 02/05/20 08:00 80 02/05/20 08:00 2.0 02/05/20 07:00 71 18 122/62 (82) 100 02/05/20 06:00 70 16 122/69 (86) 100 02/05/20 05:00 70 14 127/63 (84) 100 02/05/20 04:00 98.1 72 13 112/64 (80) 100 02/05/20 04:00 Nasal Cannula 2.0 02/05/20 04:00 2.0 02/05/20 03:33 77 02/05/20 03:00 71 14 98/82 (87) 100 02/05/20 02:00 72 16 113/63 (80) 100 02/05/20 01:00 77 15 114/66 (82) 100 02/05/20 00:00 Nasal Cannula 2.0 02/05/20 00:00 98.0 78 18 111/65 (80) 100 02/04/20 23:10 76 02/04/20 23:00 77 19 120/62 (81) 100 02/04/20 22:00 73 16 108/55 (72) 100 02/04/20 21:00 84 20 105/75 (85) 100 02/04/20 20:00 2.0 02/04/20 20:00 Nasal Cannula 2.0 02/04/20 20:00 98.2 79 17 117/60 (79) 100 02/04/20 19:24 83 02/04/20 19:21 98 Nasal Cannula 2.0 28 02/04/20 19:00 82 17 119/45 (69) 100 02/04/20 18:00 82 18 117/58 (77) 100 02/04/20 17:00 70 15 113/59 (77) 100 02/04/20 16:15 70 02/04/20 16:00 Nasal Cannula 2.0 02/04/20 16:00 98.0 70 15 125/65 (85) 100 02/04/20 16:00 2.0 02/04/20 15:30 73 17 121/64 (83) 100 02/04/20 15:00 70 13 118/69 (85) 100 02/04/20 14:30 78 19 97/58 (71) 100 02/04/20 14:00 71 13 116/70 (85) 100 02/04/20 13:40 72 17 141/64 (89) 100 02/04/20 13:29 71 02/04/20 13:25 98.2 70 14 119/63 (81) 100 02/04/20 13:25 Nasal Cannula 2.0 02/04/20 13:00 72 20 113/71 100 Nasal Cannula 3 02/04/20 12:50 70 18 99 02/04/20 12:45 97.4 72 20 108/72 100 Simple Mask 5 02/04/20 12:00 Nasal Cannula 2.0 02/04/20 11:15 2.0 02/04/20 11:00 70 20 108/68 (81) 99 02/04/20 10:00 70 15 110/69 (83) 98 Intake and Output 02/04/20 02/05/20 19:00 07:00 Intake Total 1190 ml 1880 ml Output Total 870 ml 1910 ml Balance 320 ml -30 ml Intake Oral 370 ml 1050 ml IV Total 820 ml 830 ml Output Urine Total 870 ml 1910 ml # Bowel Movements 2 General Appearance: no acute distress HEENT: normocephalic Respiratory: chest wall non-tender, lungs clear Cardiovascular: normal peripheral pulses, normal rate Abdomen: normal bowel sounds Microbiology Date/Time Source Procedure Growth Status 02/02/20 12:40 Nasopharynx SARS-CoV-2 RdRp Gene Assay - Final Complete Laboratory Tests 02/04/20 20:00: Stool Occult Blood [Pending] 02/05/20 03:50: White Blood Count 2.3L, Red Blood Count 4.03L, Hemoglobin 10.3L, Hematocrit 33.6L, Mean Corpuscular Volume 83, Mean Corpuscular Hemoglobin 25.4L, Mean Corpuscular Hemoglobin Concent 30.5L, Red Cell Distribution Width 18.5H, Platelet Count 41L, Mean Platelet Volume 8.2, Neutrophils (%) (Auto) , Lymp hocytes (%) (Auto) , Monocytes (%) (Auto) , Eosinophils (%) (Auto) , Basophils (%) (Auto) , Neutrophils % (Manual) [Pending], Lymphocytes % (Manual) [Pending], Platelet Estimate [Pending], Platelet Morphology [Pending], Reticulocyte Count [Pending], Prothrombin Time 12.3H, Prothromb Time International Ratio 1.1, Sodium Level 138, Potassium Level 3.5, Chloride Level 105, Carbon Dioxide Level 26, Anion Gap 7, Blood Urea Nitrogen 7, Creatinine 0.6, Estimat Glomerular Filtration Rate > 60, Glucose Level 184H, Calcium Level 8.2L, Iron Level [Pending], Unsaturated Iron Binding [Pending], Ferritin 23, Total Bilirubin 1.0, Aspartate Amino Transf (AST/SGOT) 91H, Alanine Aminotransferase (ALT/SGPT) 70, Alkaline Phosphatase 143H, Ammonia 31, Lactate Dehydrogenase 187, Total Protein 6.8, Albumin 2.5L, Globulin 4.3, Albumin/Globulin Ratio 0.6L, Vitamin B12 Level [Pending], HIV (1&2) Antibody Rapid Negative Current Medications Medications (Trade) Dose Ordered Sig/Emma Route PRN Reason Start Time Stop Time Status Last Admin Dose Admin Acetaminophen (Tylenol) 650 mg Q4H PRN ORAL Moderate Pain (Pain Scale 4-6) 02/02/20 16:00 03/03/20 15:59 02/02/20 21:21 Acetaminophen/ Codeine Phosphate (Tylenol #3) 1 tab Q4H PRN ORAL Moderate Pain (Pain Scale 4-6) 02/04/20 13:30 02/11/20 13:29 Cefazolin Sodium 1 gm/Dextrose 55 ml @ 110 mls/hr Q8H IVP 02/04/20 20:00 02/11/20 19:59 02/05/20 02:59 Dextrose (Dextrose 50%) 25 ml Q30M PRN IV Hypoglycemia 02/03/20 08:00 05/03/20 07:59 Dextrose (Dextrose 50%) 50 ml Q30M PRN IV Hypoglycemia 02/03/20 08:00 05/03/20 07:59 Dextrose/Sodium Chloride 1,000 ml @ 60 mls/hr [id number] IV 02/02/20 16:45 03/03/20 16:44 02/04/20 18:05 Hydromorphone HCl (Dilaudid) 0.25 mg Q4H PRN IVP Severe Pain (Pain Scale 7-10) 02/02/20 16:00 02/09/20 15:59 02/05/20 05:37 Insulin Aspart (NovoLOG) BEFORE MEALS AND HS SUBQ 02/03/20 11:30 05/03/20 11:29 02/05/20 05:38 Lactulose (Cephulac) 30 gm THREE TIMES A DAY ORAL 02/04/20 13:00 03/05/20 12:59 02/04/20 17:31 Metformin HCl (Glucophage) 500 mg BID ORAL 02/02/20 18:00 03/03/20 17:59 02/04/20 17:30 Ondansetron HCl (Zofran) 4 mg Q6H PRN IVP Nausea & Vomiting 02/04/20 13:30 03/05/20 13:29 Pantoprazole (Protonix) 40 mg EVERY 12 HOURS IVP 02/02/20 21:00 03/03/20 20:59 02/04/20 20:08 Rifaximin (Xifaxan) 550 mg EVERY 12 HOURS ORAL 02/04/20 21:00 02/11/20 20:59 02/04/20 20:08 Assessment/Plan Assessment/Plan IMPRESSION: 1. Bradycardia/heart block. S/p PPM 2. Hypotension. Resolved 3. Liver cirrhosis. DISCUSSION: The patient in the ICU being carefully monitored. She is doing much better OK to transfer out of ICU Nico Bazan Omar Syed MD Feb 05, 2020 09:02
[2020-02-05] MEDS: metFORMIN 500mg tab ORAL SCH ×2 (09:50→17:33)
[2020-02-05] MEDS: Pantoprazole Inj IVP SCH ×2 (09:50→21:00)
[2020-02-05] MEDS: Lactulose 20gm/30ml UDC ORAL SCH (09:50)
[2020-02-05 10:10] LABS: % IRON SATURATION 27 % (15-50); IRON 81 ug/dL (50-175); TOTAL IRON BINDING CAPACITY 298 ug/dL (250-450)
--- NOTE | 2020-02-05 10:24 | General Progress Note ---
Subjective ROS Limited/Unobtainable: Yes Allergies: Coded Allergies: MORPHINE (Verified Allergy, Unknown, 02/02/20) Objective Last 24 Hour Vital Signs Date Time Temp Pulse Resp B/P (MAP) Pulse Ox O2 Delivery O2 Flow Rate FiO2 02/05/20 10:00 86 16 99/85 (90) 100 02/05/20 09:00 83 18 111/62 (78) 100 02/05/20 08:48 82 20 98 02/05/20 08:00 Nasal Cannula 2.0 02/05/20 08:00 97.9 81 15 110/64 (79) 100 02/05/20 08:00 80 02/05/20 08:00 2.0 02/05/20 07:00 71 18 122/62 (82) 100 02/05/20 06:00 70 16 122/69 (86) 100 02/05/20 05:00 70 14 127/63 (84) 100 02/05/20 04:00 98.1 72 13 112/64 (80) 100 02/05/20 04:00 Nasal Cannula 2.0 02/05/20 04:00 2.0 02/05/20 03:33 77 02/05/20 03:00 71 14 98/82 (87) 100 02/05/20 02:00 72 16 113/63 (80) 100 02/05/20 01:00 77 15 114/66 (82) 100 02/05/20 00:00 Nasal Cannula 2.0 02/05/20 00:00 98.0 78 18 111/65 (80) 100 02/04/20 23:10 76 02/04/20 23:00 77 19 120/62 (81) 100 02/04/20 22:00 73 16 108/55 (72) 100 02/04/20 21:00 84 20 105/75 (85) 100 02/04/20 20:00 2.0 02/04/20 20:00 Nasal Cannula 2.0 02/04/20 20:00 98.2 79 17 117/60 (79) 100 02/04/20 19:24 83 02/04/20 19:21 98 Nasal Cannula 2.0 28 02/04/20 19:00 82 17 119/45 (69) 100 02/04/20 18:00 82 18 117/58 (77) 100 02/04/20 17:00 70 15 113/59 (77) 100 02/04/20 16:15 70 02/04/20 16:00 Nasal Cannula 2.0 02/04/20 16:00 98.0 70 15 125/65 (85) 100 02/04/20 16:00 2.0 02/04/20 15:30 73 17 121/64 (83) 100 02/04/20 15:00 70 13 118/69 (85) 100 02/04/20 14:30 78 19 97/58 (71) 100 02/04/20 14:00 71 13 116/70 (85) 100 02/04/20 13:40 72 17 141/64 (89) 100 02/04/20 13:29 71 02/04/20 13:25 98.2 70 14 119/63 (81) 100 02/04/20 13:25 Nasal Cannula 2.0 02/04/20 13:00 72 20 113/71 100 Nasal Cannula 3 02/04/20 12:50 70 18 99 02/04/20 12:45 97.4 72 20 108/72 100 Simple Mask 5 02/04/20 12:00 Nasal Cannula 2.0 02/04/20 11:15 2.0 02/04/20 11:00 70 20 108/68 (81) 99 Intake and Output 02/04/20 02/05/20 19:00 07:00 Intake Total 1190 ml 1880 ml Output Total 870 ml 1910 ml Balance 320 ml -30 ml Intake Oral 370 ml 1050 ml IV Total 820 ml 830 ml Output Urine Total 870 ml 1910 ml # Bowel Movements 2 Laboratory Tests 02/04/20 20:00: Stool Occult Blood [Pending] 02/05/20 03:50: White Blood Count 2.3L, Red Blood Count 4.03L, Hemoglobin 10.3L, Hematocrit 33.6L, Mean Corpuscular Volume 83, Mean Corpuscular Hemoglobin 25.4L, Mean Corpuscular Hemoglobin Concent 30.5L, Red Cell Distribution Width 18.5H, Platelet Count 41L, Mean Platelet Volume 8.2, Neutrophils (%) (Auto) , Lymphocytes (%) (Auto) , Monocytes (%) (Auto) , Eosinophils (%) (Auto) , Basophils (%) (Auto) , Differential Total Cells Counted 100, Neutrophils % (Manual) 55, Lymphocytes % (Manual) 34, Monocytes % (Manual) 11H, Eosinophils % (Manual) 0, Basophils % (Manual) 0, Band Neutrophils 0, Platelet Estimate DecreasedL, Platelet Morphology Normal, Hypochromasia 1+, Anisocytosis 1+, Reticulocyte Count [Pending], Prothrombin Time 12.3H, Prothromb Time International Ratio 1.1, Sodium Level 138, Potassium Level 3.5, Chloride Level 105, Carbon Dioxide Level 26, Anion Gap 7, Blood Urea Nitrogen 7, Creatinine 0.6, Estimat Glomerular Filtration Rate > 60, Glucose Level 184H, Calcium Level 8.2L, Iron Level 81, Total Iron Binding Capacity 298, Percent Iron Saturation 27, Unsaturated Iron Binding 217, Ferritin 23, Total Bilirubin 1.0, Aspartate Amino Transf (AST/SGOT) 91H, Alanine Aminotransferase (ALT/SGPT) 70, Alkaline Phosphatase 143H, Ammonia 31, Lactate Dehydrogenase 187, Total Protein 6.8, Albumin 2.5L, Globulin 4.3, Albumin/Globulin Ratio 0.6L, Vitamin B12 Level 641, HIV (1&2) Antibody Rapid Negative Height (Feet): 5 Height (Inches): 4.00 Weight (Pounds): 140 General Appearance: no apparent distress EENT: PERRL/EOMI Neck: supple Cardiovascular: normal rate Respiratory/Chest: decreased breath sounds Abdomen: normal bowel sounds, non tender, soft Extremities: non-tender Assessment/Plan Assessment/Plan: cirrhosis EV anemia thrombocytopenia heart block s/p pacemaker DM abd us hepatitis panel>>> neg ammonia level>>>125>> 32 cint Xifaxan cut lactulose by half hold propanolol given above Buster Heard MD Feb 05, 2020 10:24
[2020-02-05] MEDS: D5NS 1,000 ML IV SCH (12:20)
[2020-02-05] MEDS: Lactulose 10gm/15ml UDC ORAL SCH ×2 (12:23→17:33)
--- NOTE | 2020-02-05 12:28 | General Progress Note ---
Subjective Allergies: Coded Allergies: MORPHINE (Verified Allergy, Unknown, 02/02/20) Subjective more awake doing better s/p icd placement Objective Last 24 Hour Vital Signs Date Time Temp Pulse Resp B/P (MAP) Pulse Ox O2 Delivery O2 Flow Rate FiO2 02/05/20 11:00 76 15 112/64 (80) 100 02/05/20 10:00 86 16 99/85 (90) 100 02/05/20 09:00 83 18 111/62 (78) 100 02/05/20 08:48 82 20 98 02/05/20 08:00 Nasal Cannula 2.0 02/05/20 08:00 97.9 81 15 110/64 (79) 100 02/05/20 08:00 80 02/05/20 08:00 2.0 02/05/20 07:00 71 18 122/62 (82) 100 02/05/20 06:00 70 16 122/69 (86) 100 02/05/20 05:00 70 14 127/63 (84) 100 02/05/20 04:00 98.1 72 13 112/64 (80) 100 02/05/20 04:00 Nasal Cannula 2.0 02/05/20 04:00 2.0 02/05/20 03:33 77 02/05/20 03:00 71 14 98/82 (87) 100 02/05/20 02:00 72 16 113/63 (80) 100 02/05/20 01:00 77 15 114/66 (82) 100 02/05/20 00:00 Nasal Cannula 2.0 02/05/20 00:00 98.0 78 18 111/65 (80) 100 02/04/20 23:10 76 02/04/20 23:00 77 19 120/62 (81) 100 02/04/20 22:00 73 16 108/55 (72) 100 02/04/20 21:00 84 20 105/75 (85) 100 02/04/20 20:00 2.0 02/04/20 20:00 Nasal Cannula 2.0 02/04/20 20:00 98.2 79 17 117/60 (79) 100 02/04/20 19:24 83 02/04/20 19:21 98 Nasal Cannula 2.0 28 02/04/20 19:00 82 17 119/45 (69) 100 02/04/20 18:00 82 18 117/58 (77) 100 02/04/20 17:00 70 15 113/59 (77) 100 02/04/20 16:15 70 02/04/20 16:00 Nasal Cannula 2.0 02/04/20 16:00 98.0 70 15 125/65 (85) 100 02/04/20 16:00 2.0 02/04/20 15:30 73 17 121/64 (83) 100 02/04/20 15:00 70 13 118/69 (85) 100 02/04/20 14:30 78 19 97/58 (71) 100 02/04/20 14:00 71 13 116/70 (85) 100 02/04/20 13:40 72 17 141/64 (89) 100 02/04/20 13:29 71 02/04/20 13:25 98.2 70 14 119/63 (81) 100 02/04/20 13:25 Nasal Cannula 2.0 02/04/20 13:00 72 20 113/71 100 Nasal Cannula 3 02/04/20 12:50 70 18 99 02/04/20 12:45 97.4 72 20 108/72 100 Simple Mask 5 Intake and Output 02/04/20 02/05/20 19:00 07:00 Intake Total 1190 ml 1880 ml Output Total 870 ml 1910 ml Balance 320 ml -30 ml Intake Oral 370 ml 1050 ml IV Total 820 ml 830 ml Output Urine Total 870 ml 1910 ml # Bowel Movements 2 Laboratory Tests 02/04/20 20:00: Stool Occult Blood [Pending] 02/05/20 03:50: White Blood Count 2.3L, Red Blood Count 4.03L, Hemoglobin 10.3L, Hematocrit 33.6L, Mean Corpuscular Volume 83, Mean Corpuscular Hemoglobin 25.4L, Mean Corpuscular Hemoglobin Concent 30.5L, Red Cell Distribution Width 18.5H, Platelet Count 41L, Mean Platelet Volume 8.2, Neutrophils (%) (Auto) , Lymphocytes (%) (Auto) , Monocytes (%) (Auto) , Eosinophils (%) (Auto) , Basophils (%) (Auto) , Differential Total Cells Counted 100, Neutrophils % (Manual) 55, Lymphocytes % (Manual) 34, Monocytes % (Manual) 11H, Eosinophils % (Manual) 0, Basophils % (Manual) 0, Band Neutrophils 0, Other Cell Type Pathologist review, Platelet Estimate DecreasedL, Platelet Morphology Normal, Hypochromasia 1+, Anisocytosis 1+, Reticulocyte Count 1.4, Prothrombin Time 12.3H, Prothromb Time International Ratio 1.1, Sodium Level 138, Potassium Level 3.5, Chloride Level 105, Carbon Dioxide Level 26, Anion Gap 7, Blood Urea Nitrogen 7, Creatinine 0.6, Estimat Glomerular Filtration Rate > 60, Glucose Level 184H, Calcium Level 8.2L, Iron Level 81, Total Iron Binding Capacity 298, Percent Iron Saturation 27, Unsaturated Iron Binding 217, Ferritin 23, Total Bilirubin 1.0, Aspartate Amino Transf (AST/SGOT) 91H, Alanine Aminotransferase (ALT/SGPT) 70, Alkaline Phosphatase 143H, Ammonia 31, Lactate Dehydrogenase 187, Total Protein 6.8, Albumin 2.5L, Globulin 4.3, Albumin/Globulin Ratio 0.6L, Vitamin B12 Level 641, HIV (1&2) Antibody Rapid Negative Height (Feet): 5 Height (Inches): 4.00 Weight (Pounds): 140 General Appearance: alert EENT: PERRL/EOMI Neck: supple Cardiovascular: regular rhythm Respiratory/Chest: lungs clear Abdomen: non tender, soft Assessment/Plan Assessment/Plan: 1 syncopy 2 cardiac arrthemia s/p icd placement 3 htn 4 cirrosis for pacemaker today cont rest tx cont icu Jose Morales MD Feb 05, 2020 12:28
[2020-02-05] MEDS ORDERED: Lactulose 10gm/15ml UDC ORAL SCH (13:00)
[2020-02-05] MEDS ORDERED: D5NS 1000ml IV ONE (13:18)
--- NOTE | 2020-02-05 15:00 | Surgery Progress Note ---
Surgery Progress Note Subjective Symptoms: improved, passing flatus Objective Last 24 Hour Vital Signs Date Time Temp Pulse Resp B/P (MAP) Pulse Ox O2 Delivery O2 Flow Rate FiO2 02/05/20 14:00 87 22 109/65 (80) 100 02/05/20 13:00 81 20 106/68 (81) 100 02/05/20 12:00 76 02/05/20 12:00 97.2 80 19 110/59 (76) 100 02/05/20 12:00 2.0 02/05/20 11:00 76 15 112/64 (80) 100 02/05/20 10:00 86 16 99/85 (90) 100 02/05/20 09:00 83 18 111/62 (78) 100 02/05/20 08:48 82 20 98 02/05/20 08:00 Nasal Cannula 2.0 02/05/20 08:00 97.9 81 15 110/64 (79) 100 02/05/20 08:00 80 02/05/20 08:00 2.0 02/05/20 07:00 71 18 122/62 (82) 100 02/05/20 06:00 70 16 122/69 (86) 100 02/05/20 05:00 70 14 127/63 (84) 100 02/05/20 04:00 98.1 72 13 112/64 (80) 100 02/05/20 04:00 Nasal Cannula 2.0 02/05/20 04:00 2.0 02/05/20 03:33 77 02/05/20 03:00 71 14 98/82 (87) 100 02/05/20 02:00 72 16 113/63 (80) 100 02/05/20 01:00 77 15 114/66 (82) 100 02/05/20 00:00 Nasal Cannula 2.0 02/05/20 00:00 98.0 78 18 111/65 (80) 100 02/04/20 23:10 76 02/04/20 23:00 77 19 120/62 (81) 100 02/04/20 22:00 73 16 108/55 (72) 100 02/04/20 21:00 84 20 105/75 (85) 100 02/04/20 20:00 2.0 02/04/20 20:00 Nasal Cannula 2.0 02/04/20 20:00 98.2 79 17 117/60 (79) 100 02/04/20 19:24 83 02/04/20 19:21 98 Nasal Cannula 2.0 28 02/04/20 19:00 82 17 119/45 (69) 100 02/04/20 18:00 82 18 117/58 (77) 100 02/04/20 17:00 70 15 113/59 (77) 100 02/04/20 16:15 70 02/04/20 16:00 Nasal Cannula 2.0 02/04/20 16:00 98.0 70 15 125/65 (85) 100 02/04/20 16:00 2.0 02/04/20 15:30 73 17 121/64 (83) 100 I&O Intake and Output 02/04/20 02/05/20 19:00 07:00 Intake Total 1190 ml 1880 ml Output Total 870 ml 1910 ml Balance 320 ml -30 ml Intake Oral 370 ml 1050 ml IV Total 820 ml 830 ml Output Urine Total 870 ml 1910 ml # Bowel Movements 2 Dressing: saturated Cardiovascular: RSR Respiratory: decreased breath sounds Abdomen: non-tender, present bowel sounds Extremities: edema, no tenderness, no cyanosis Laboratory Tests Test 02/04/20 20:00 02/05/20 03:50 Stool Occult Blood Pending White Blood Count 2.3 K/UL (4.8-10.8) L Red Blood Count 4.03 M/UL (4.20-5.40) L Hemoglobin 10.3 G/DL (12.0-16.0) L Hematocrit 33.6 % (37.0-47.0) L Mean Corpuscular Volume 83 FL (80-99) Mean Corpuscular Hemoglobin 25.4 PG (27.0-31.0) L Mean Corpuscular Hemoglobin Concent 30.5 G/DL (32.0-36.0) L Red Cell Distribution Width 18.5 % (11.6-14.8) H Platelet Count 41 K/UL (150-450) L Mean Platelet Volume 8.2 FL (6.5-10.1) Neutrophils (%) (Auto) % (45.0-75.0) Lymphocytes (%) (Auto) % (20.0-45.0) Monocytes (%) (Auto) % (1.0-10.0) Eosinophils (%) (Auto) % (0.0-3.0) Basophils (%) (Auto) % (0.0-2.0) Differential Total Cells Counted 100 Neutrophils % (Manual) 55 % (45-75) Lymphocytes % (Manual) 34 % (20-45) Monocytes % (Manual) 11 % (1-10) H Eosinophils % (Manual) 0 % (0-3) Basophils % (Manual) 0 % (0-2) Band Neutrophils 0 % (0-8) Other Cell Type Pathologist review Platelet Estimate Decreased L Platelet Morphology Normal Hypochromasia 1+ Anisocytosis 1+ Reticulocyte Count 1.4 % (0.5-2.0) Prothrombin Time 12.3 SEC (9.30-11.50) H Prothromb Time International Ratio 1.1 (0.9-1.1) Sodium Level 138 MMOL/L (136-145) Potassium Level 3.5 MMOL/L (3.5-5.1) Chloride Level 105 MMOL/L (98-107) Carbon Dioxide Level 26 MMOL/L (21-32) Anion Gap 7 mmol/L (5-15) Blood Urea Nitrogen 7 mg/dL (7-18) Creatinine 0.6 MG/DL (0.55-1.30) Estimat Glomerular Filtration Rate > 60 mL/min (>60) Glucose Level 184 MG/DL (74-106) H Calcium Level 8.2 MG/DL (8.5-10.1) L Iron Level 81 ug/dL (50-175) Total Iron Binding Capacity 298 ug/dL (250-450) Percent Iron Saturation 27 % (15-50) Unsaturated Iron Binding 217 ug/dL (112-346) Ferritin 23 NG/ML (8-388) Total Bilirubin 1.0 MG/DL (0.2-1.0) Aspartate Amino Transf (AST/SGOT) 91 U/L (15-37) H Alanine Aminotransferase (ALT/SGPT) 70 U/L (12-78) Alkaline Phosphatase 143 U/L (46-116) H Ammonia 31 umol/L (11-32) Lactate Dehydrogenase 187 U/L (81-234) Total Protein 6.8 G/DL (6.4-8.2) Albumin 2.5 G/DL (3.4-5.0) L Globulin 4.3 g/dL Albumin/Globulin Ratio 0.6 (1.0-2.7) L Vitamin B12 Level 641 PG/ML (193-986) HIV (1&2) Antibody Rapid Negative (NEGATIVE) Plan Problems: (1) Syncope (2) Closed head injury Assessment & Plan: No acute intracranial hemorrhage or edema, mass effect, nor midline shift. Normal keenan-white differentiation. Normal size ventricles and extra axial CSF spaces. The calvarium is intact. The mastoids are clear. What appears to be prosthetic material is seen in the frontal scalp. The sinuses are clear. Impression: Negative. No acute intracranial bleed or mass effect Frontal scalp prosthesis incidentally noted. Correlate with surgical history (3) Symptomatic bradycardia (4) Complete heart block (5) Liver cirrhosis Assessment & Plan: Patient status post laparoscopic cholecystectomy. Patient with known history of Mena liver cirrhosis nonalcoholic etiology unknown does not state its hepatitis. She is undergoing care at [facility] liver center. Will order ultrasound to evaluate for potential intra-abdominal etiology of discomfort. No acute surgical invention at this time. Hold on CT scan as patient has had prior work-up. (6) Abnormal LFTs Assessment & Plan: Will trend labs. Amylase lipase ordered. Okay for diet from surgical standpoint. Tentatively n.p.o. after midnight for cardiology intervention. Will follow with recommendations thank you Ismael participate patient's care Joe Cabrera Feb 05, 2020 15:00
--- NOTE | 2020-02-05 17:51 | Cardiac Electrophysiology PN ---
Assessment/Plan Assessment/Plan 1. Intermittent complete heart block and syncope. S/P Transvenous temporary pacemaker placement by me S/P [facility] [place] permanent pacer placement and removal of temporary pacer 02/04/2020. Pacer interrogated today and showed Nl Fx CXR no Ptx. Pacer site no hematoma 2. Troponin elevation, 0.216. 0.2 and 0.2. Levels are low and Flat. No CP. ECG May need cardiac catheterization if patient consents. 3. Cirrhosis of the liver. 4. Diabetes, on metformin. LINO RN Subjective Subjective Just underwent PPM implant and removal of temporary pacer yesterday. Remained 100% paced in ICU. Objective Last 24 Hour Vital Signs Date Time Temp Pulse Resp B/P (MAP) Pulse Ox O2 Delivery O2 Flow Rate FiO2 02/05/20 15:43 80 02/05/20 14:00 87 22 109/65 (80) 100 02/05/20 13:00 81 20 106/68 (81) 100 02/05/20 12:00 76 02/05/20 12:00 97.2 80 19 110/59 (76) 100 02/05/20 12:00 2.0 02/05/20 11:00 76 15 112/64 (80) 100 02/05/20 10:00 86 16 99/85 (90) 100 02/05/20 09:00 83 18 111/62 (78) 100 02/05/20 08:48 82 20 98 02/05/20 08:00 Nasal Cannula 2.0 02/05/20 08:00 97.9 81 15 110/64 (79) 100 02/05/20 08:00 80 02/05/20 08:00 2.0 02/05/20 07:00 71 18 122/62 (82) 100 02/05/20 06:00 70 16 122/69 (86) 100 02/05/20 05:00 70 14 127/63 (84) 100 02/05/20 04:00 98.1 72 13 112/64 (80) 100 02/05/20 04:00 Nasal Cannula 2.0 02/05/20 04:00 2.0 02/05/20 03:33 77 02/05/20 03:00 71 14 98/82 (87) 100 02/05/20 02:00 72 16 113/63 (80) 100 02/05/20 01:00 77 15 114/66 (82) 100 02/05/20 00:00 Nasal Cannula 2.0 02/05/20 00:00 98.0 78 18 111/65 (80) 100 02/04/20 23:10 76 02/04/20 23:00 77 19 120/62 (81) 100 02/04/20 22:00 73 16 108/55 (72) 100 02/04/20 21:00 84 20 105/75 (85) 100 02/04/20 20:00 2.0 02/04/20 20:00 Nasal Cannula 2.0 02/04/20 20:00 98.2 79 17 117/60 (79) 100 02/04/20 19:24 83 02/04/20 19:21 98 Nasal Cannula 2.0 28 02/04/20 19:00 82 17 119/45 (69) 100 02/04/20 18:00 82 18 117/58 (77) 100 Intake and Output 02/04/20 02/05/20 19:00 07:00 Intake Total 1190 ml 1880 ml Output Total 870 ml 1910 ml Balance 320 ml -30 ml Intake Oral 370 ml 1050 ml IV Total 820 ml 830 ml Output Urine Total 870 ml 1910 ml # Bowel Movements 2 Laboratory Tests Test 02/04/20 20:00 02/05/20 03:50 02/05/20 17:29 Stool Occult Blood Pending White Blood Count 2.3 K/UL (4.8-10.8) L Red Blood Count 4.03 M/UL (4.20-5.40) L Hemoglobin 10.3 G/DL (12.0-16.0) L Hematocrit 33.6 % (37.0-47.0) L Mean Corpuscular Volume 83 FL (80-99) Mean Corpuscular Hemoglobin 25.4 PG (27.0-31.0) L Mean Corpuscular Hemoglobin Concent 30.5 G/DL (32.0-36.0) L Red Cell Distribution Width 18.5 % (11.6-14.8) H Platelet Count 41 K/UL (150-450) L Mean Platelet Volume 8.2 FL (6.5-10.1) Neutrophils (%) (Auto) % (45.0-75.0) Lymphocytes (%) (Auto) % (20.0-45.0) Monocytes (%) (Auto) % (1.0-10.0) Eosinophils (%) (Auto) % (0.0-3.0) Basophils (%) (Auto) % (0.0-2.0) Differential Total Cells Counted 100 Neutrophils % (Manual) 55 % (45-75) Lymphocytes % (Manual) 34 % (20-45) Monocytes % (Manual) 11 % (1-10) H Eosinophils % (Manual) 0 % (0-3) Basophils % (Manual) 0 % (0-2) Band Neutrophils 0 % (0-8) Other Cell Type Pathologist review Platelet Estimate Decreased L Platelet Morphology Normal Hypochromasia 1+ Anisocytosis 1+ Reticulocyte Count 1.4 % (0.5-2.0) Prothrombin Time 12.3 SEC (9.30-11.50) H Prothromb Time International Ratio 1.1 (0.9-1.1) Sodium Level 138 MMOL/L (136-145) Potassium Level 3.5 MMOL/L (3.5-5.1) Chloride Level 105 MMOL/L (98-107) Carbon Dioxide Level 26 MMOL/L (21-32) Anion Gap 7 mmol/L (5-15) Blood Urea Nitrogen 7 mg/dL (7-18) Creatinine 0.6 MG/DL (0.55-1.30) Estimat Glomerular Filtration Rate > 60 mL/min (>60) Glucose Level 184 MG/DL (74-106) H Calcium Level 8.2 MG/DL (8.5-10.1) L Iron Level 81 ug/dL (50-175) Total Iron Binding Capacity 298 ug/dL (250-450) Percent Iron Saturation 27 % (15-50) Unsaturated Iron Binding 217 ug/dL (112-346) Ferritin 23 NG/ML (8-388) Total Bilirubin 1.0 MG/DL (0.2-1.0) Aspartate Amino Transf (AST/SGOT) 91 U/L (15-37) H Alanine Aminotransferase (ALT/SGPT) 70 U/L (12-78) Alkaline Phosphatase 143 U/L (46-116) H Ammonia 31 umol/L (11-32) Lactate Dehydrogenase 187 U/L (81-234) Total Protein 6.8 G/DL (6.4-8.2) Albumin 2.5 G/DL (3.4-5.0) L Globulin 4.3 g/dL Albumin/Globulin Ratio 0.6 (1.0-2.7) L Vitamin B12 Level 641 PG/ML (193-986) HIV (1&2) Antibody Rapid Negative (NEGATIVE) POC Whole Blood Glucose 280 MG/DL (74-106) H Objective HEAD AND NECK: No JVD. LUNGS: Clear. CARDIOVASCULAR: Regular S1 and S2 with no G/R/M. Pacer left subclavian with no hematoma ABDOMEN: Soft, status post laparoscopic cholecystectomy. EXTREMITIES: No pitting edema. Right groin no hematoma Rodrigue Hanna MD Feb 05, 2020 17:51
[2020-02-06] VITALS: BP 121/69
[2020-02-06] MEDS ORDERED: ceFAZolin sod 1 GM in D5W 55 ML IVP SCH ×2
[2020-02-06 04:00] VITALS: BP 117/89
[2020-02-06] MEDS: D5NS 1,000 ML IV SCH (04:05)
[2020-02-06] MEDS: Hydromorphone 0.5mg/0.5ml inj IVP PRN ×3 (05:49→15:35)
[2020-02-06 06:04] LABS: HEMATOCRIT 32.8 % (37.0-47.0); HEMOGLOBIN 10.1 G/DL (12.0-16.0); MEAN CORPUSCULAR VOLUME 83 FL (80-99); PLATELET COUNT 37 K/UL (150-450); RED BLOOD COUNT 3.94 M/UL (4.20-5.40); RED CELL DISTRIBUTION WIDTH 18.3 % (11.6-14.8); WHITE BLOOD COUNT 2.7 K/UL (4.8-10.8)
[2020-02-06 06:25] LABS: BLOOD UREA NITROGEN 4 mg/dL (7-18); CALCIUM 8.3 MG/DL (8.5-10.1); CARBON DIOXIDE 25 MMOL/L (21-32); CHLORIDE 103 MMOL/L (98-107); CREATININE 0.6 MG/DL (0.55-1.30); POTASSIUM 3.5 MMOL/L (3.5-5.1); SODIUM 135 MMOL/L (136-145)
[2020-02-06] MEDS: NovoLOG Insulin Flexpen SUBQ SCH ×2 (06:59→11:30)
[2020-02-06 08:00] VITALS: BP 112/63
[2020-02-06] MEDS: Pantoprazole Inj IVP SCH (08:28)
[2020-02-06] MEDS: ceFAZolin sod 1 GM in D5W 55 ML IVPB SCH ×2 (08:29→15:34)
[2020-02-06] MEDS: metFORMIN 500mg tab ORAL SCH (08:29)
[2020-02-06] MEDS: Lactulose 10gm/15ml UDC ORAL SCH ×2 (08:29→13:00)
--- NOTE | 2020-02-06 08:47 | Hematology/Onc Progress Note ---
Assessment/Plan Assessment/Plan Assessment/Recs # Pancytopenia is likely related to history of cirrhosis, this is the first time she has been here, does show cirrhosis on the us abd --> us Echogenic with surface nodularity, suggestive of cirrhotic change -> hep and hiv has been ordered, results negative --> wbc 2.3-->2.1 --> hgb 10->9 --> plt 41-->37 --> smear has been reviewed --> abx as needed --> smear has been noted --> anemia panel has been ordered as well-> shows aid # Anemia due to iron deficiency --> iv iron started x 5 days # Liver cirrhosis --> ongoing history --> start lactulose and Xifaxan # Syncope may be related to hear block --> s/p placement opf dualcmaber pacemaker # Symptomatic bradycardia # Closed head injury # Successful dual-chamber permanent pacemaker implantation. # DM2 # Dvt ppx scds Appreciate consultation and kanchan RN Subjective HEENT: Denies: no symptoms, eye pain, blurred vision, tearing, double vision, ear pain, ear discharge, nose pain, nose congestion, throat pain, throat swelling, mouth pain, mouth swelling, other Cardiovascular: Denies: no symptoms, chest pain, edema, irregular heart rate, lightheadedness, palpitations, syncope, other Respiratory: Denies: no symptoms, cough, shortness of breath, SOB with excertion, SOB at rest, sputum, wheezing, other Gastrointestinal/Abdominal: Denies: no symptoms, abdomen distended, abdominal pain, black stools, tarry stools, blood in stool, constipated, diarrhea, difficulty swallowing, nausea, poor appetite, poor fluid intake, rectal b leeding, vomiting, other Genitourinary: Denies: no symptoms, burning, discharge, frequency, flank pain, hematuria, incontinence, pain, urgency, other Neurologic/Psychiatric: Denies: no symptoms, anxiety, depressed, emotional problems, headache, numbness, paresthesia, pre-existing deficit, seizure, tingling, tremors, weakness, other Endocrine: Denies: no symptoms, excessive sweating, flushing, intolerance to cold, intolerance to heat, increased hunger, increased thirst, increased urine, unexplained weight gain, unexplained weight loss, other Hematologic/Lymphatic: Denies: no symptoms, anemia, easy bleeding, easy bruising, adenopathy, other Allergies: Coded Allergies: MORPHINE (Verified Allergy, Unknown, 02/02/20) Subjective 02/05 s/p icd placement, iron iv has been started Objective Objective Current Medications Medications (Trade) Dose Ordered Sig/Emma Route PRN Reason Start Time Stop Time Status Last Admin Dose Admin Acetaminophen (Tylenol) 650 mg Q4H PRN ORAL Moderate Pain (Pain Scale 4-6) 02/02/20 16:00 03/03/20 15:59 02/02/20 21:21 Acetaminophen/ Codeine Phosphate (Tylenol #3) 1 tab Q4H PRN ORAL Moderate Pain (Pain Scale 4-6) 02/04/20 13:30 02/11/20 13:29 Cefazolin Sodium 1 gm/Dextrose 55 ml @ 110 mls/hr Q8H IVPB 02/06/20 08:00 02/13/20 07:59 02/06/20 08:29 Dextrose (Dextrose 50%) 25 ml Q30M PRN IV Hypoglycemia 02/03/20 08:00 05/03/20 07:59 Dextrose (Dextrose 50%) 50 ml Q30M PRN IV Hypoglycemia 02/03/20 08:00 05/03/20 07:59 Dextrose/Sodium Chloride 1,000 ml @ 60 mls/hr [id number] IV 02/02/20 16:45 03/03/20 16:44 02/06/20 04:05 Hydromorphone HCl (Dilaudid) 0.25 mg Q4H PRN IVP Severe Pain (Pain Scale 7-10) 02/02/20 16:00 02/09/20 15:59 02/06/20 05:49 Insulin Aspart (NovoLOG) BEFORE MEALS AND HS SUBQ 02/03/20 11:30 05/03/20 11:29 02/06/20 06:59 Lactulose (Cephulac) 15 gm THREE TIMES A DAY ORAL 02/05/20 13:00 03/06/20 12:59 02/05/20 17:33 Metformin HCl (Glucophage) 500 mg BID ORAL 02/02/20 18:00 03/03/20 17:59 02/06/20 08:29 Ondansetron HCl (Zofran) 4 mg Q6H PRN IVP Nausea & Vomiting 02/04/20 13:30 03/05/20 13:29 Pantoprazole (Protonix) 40 mg EVERY 12 HOURS IVP 02/02/20 21:00 03/03/20 20:59 02/06/20 08:28 Rifaximin (Xifaxan) 550 mg EVERY 12 HOURS ORAL 02/04/20 21:00 02/11/20 20:59 02/06/20 08:29 Last 24 Hour Vital Signs Date Time Temp Pulse Resp B/P (MAP) Pulse Ox O2 Delivery O2 Flow Rate FiO2 02/06/20 06:36 97.8 02/06/20 04:00 89 02/06/20 04:00 96.3 84 20 117/89 (98) 98 02/06/20 00:00 97.6 90 20 121/69 (86) 98 02/06/20 00:00 90 02/05/20 22:04 97.8 02/05/20 20:00 Nasal Cannula 2.0 02/05/20 20:00 97.6 76 20 123/64 (83) 98 02/05/20 19:20 98 Nasal Cannula 2.0 28 02/05/20 16:00 97.8 76 20 123/64 (83) 98 02/05/20 16:00 2.0 02/05/20 15:43 80 02/05/20 14:00 87 22 109/65 (80) 100 02/05/20 13:00 81 20 106/68 (81) 100 02/05/20 12:00 76 02/05/20 12:00 97.2 80 19 110/59 (76) 100 02/05/20 12:00 2.0 02/05/20 11:00 76 15 112/64 (80) 100 02/05/20 10:00 86 16 99/85 (90) 100 02/05/20 09:00 83 18 111/62 (78) 100 02/05/20 08:48 82 20 98 02/05/20 08:00 Nasal Cannula 2.0 02/05/20 08:00 97.9 81 15 110/64 (79) 100 02/05/20 08:00 80 02/05/20 08:00 2.0 02/05/20 07:00 71 18 122/62 (82) 100 02/05/20 06:00 70 16 122/69 (86) 100 02/05/20 05:00 70 14 127/63 (84) 100 02/05/20 04:00 98.1 72 13 112/64 (80) 100 02/05/20 04:00 Nasal Cannula 2.0 02/05/20 04:00 2.0 02/05/20 03:33 77 02/05/20 03:00 71 14 98/82 (87) 100 02/05/20 02:00 72 16 113/63 (80) 100 02/05/20 01:00 77 15 114/66 (82) 100 02/05/20 00:00 Nasal Cannula 2.0 02/05/20 00:00 98.0 78 18 111/65 (80) 100 02/04/20 23:10 76 02/04/20 23:00 77 19 120/62 (81) 100 02/04/20 22:00 73 16 108/55 (72) 100 02/04/20 21:00 84 20 105/75 (85) 100 02/04/20 20:00 2.0 02/04/20 20:00 Nasal Cannula 2.0 02/04/20 20:00 98.2 79 17 117/60 (79) 100 02/04/20 19:24 83 02/04/20 19:21 98 Nasal Cannula 2.0 28 02/04/20 19:00 82 17 119/45 (69) 100 02/04/20 18:00 82 18 117/58 (77) 100 02/04/20 17:00 70 15 113/59 (77) 100 02/04/20 16:15 70 02/04/20 16:00 Nasal Cannula 2.0 02/04/20 16:00 98.0 70 15 125/65 (85) 100 02/04/20 16:00 2.0 02/04/20 15:30 73 17 121/64 (83) 100 02/04/20 15:00 70 13 118/69 (85) 100 02/04/20 14:30 78 19 97/58 (71) 100 02/04/20 14:00 71 13 116/70 (85) 100 02/04/20 13:40 72 17 141/64 (89) 100 02/04/20 13:29 71 02/04/20 13:25 98.2 70 14 119/63 (81) 100 02/04/20 13:25 Nasal Cannula 2.0 02/04/20 13:00 72 20 113/71 100 Nasal Cannula 3 02/04/20 12:50 70 18 99 02/04/20 12:45 97.4 72 20 108/72 100 Simple Mask 5 02/04/20 12:00 Nasal Cannula 2.0 02/04/20 11:15 2.0 02/04/20 11:00 70 20 108/68 (81) 99 02/04/20 10:00 70 15 110/69 (83) 98 02/04/20 09:00 70 14 118/68 (85) 97 Intake and Output 02/05/20 02/06/20 19:00 07:00 Intake Total 1120 ml Output Total 1225 ml Balance -105 ml Intake Oral 1120 ml Output Urine Total 1225 ml # Voids 3 # Bowel Movements 1 Labs Test 02/03/20 13:08 02/03/20 18:04 02/03/20 20:56 02/04/20 03:20 POC Whole Blood Glucose 200 MG/DL (74-106) White Blood Count 3.7 K/UL (4.8-10.8) Red Blood Count 4.38 M/UL (4.20-5.40) Hemoglobin 11.0 G/DL (12.0-16.0) Hematocrit 36.3 % (37.0-47.0) Mean Corpuscular Volume 83 FL (80-99) Mean Corpuscular Hemoglobin 25.2 PG (27.0-31.0) Mean Corpuscular Hemoglobin Concent 30.4 G/DL (32.0-36.0) Red Cell Distribution Width 19.0 % (11.6-14.8) Platelet Count 54 K/UL (150-450) Mean Platelet Volume 9.5 FL (6.5-10.1) Neutrophils (%) (Auto) % (45.0-75.0) Lymphocytes (%) (Auto) % (20.0-45.0) Monocytes (%) (Auto) % (1.0-10.0) Eosinophils (%) (Auto) % (0.0-3.0) Basophils (%) (Auto) % (0.0-2.0) Differential Total Cells Counted 100 Neutrophils % (Manual) 59 % (45-75) Lymphocytes % (Manual) 28 % (20-45) Monocytes % (Manual) 12 % (1-10) Eosinophils % (Manual) 1 % (0-3) Basophils % (Manual) 0 % (0-2) Band Neutrophils 0 % (0-8) Platelet Estimate Decreased Platelet Morphology Normal Hypochromasia 2+ Anisocytosis 1+ Prothrombin Time 11.8 SEC (9.30-11.50) Prothromb Time International Ratio 1.1 (0.9-1.1) Activated Partial Thromboplast Time 31 SEC (23-33) Sodium Level 138 MMOL/L (136-145) Potassium Level 3.8 MMOL/L (3.5-5.1) Chloride Level 106 MMOL/L (98-107) Carbon Dioxide Level 25 MMOL/L (21-32) Anion Gap 7 mmol/L (5-15) Blood Urea Nitrogen 12 mg/dL (7-18) Creatinine 0.8 MG/DL (0.55-1.30) Estimat Glomerular Filtration Rate > 60 mL/min (>60) Glucose Level 224 MG/DL (74-106) Calcium Level 8.2 MG/DL (8.5-10.1) Total Bilirubin 0.7 MG/DL (0.2-1.0) Aspartate Amino Transf (AST/SGOT) 38 U/L (15-37) Alanine Aminotransferase (ALT/SGPT) 45 U/L (12-78) Alkaline Phosphatase 123 U/L (46-116) Ammonia 125 umol/L (11-32) Total Protein 7.7 G/DL (6.4-8.2) Albumin 2.5 G/DL (3.4-5.0) Globulin 5.2 g/dL Albumin/Globulin Ratio 0.5 (1.0-2.7) Hepatitis A IgM Antibody Negative (Negative) Hepatitis B Surface Antigen Negative (Negative) Hepatitis B Core IgM Antibody Negative (Negative) Hepatitis C Antibody <0.1 s/co ratio Test 02/04/20 05:18 02/04/20 20:00 02/05/20 03:50 02/05/20 17:29 POC Whole Blood Glucose 247 MG/DL (74-106) 280 MG/DL (74-106) White Blood Count 2.3 K/UL (4.8-10.8) Red Blood Count 4.03 M/UL (4.20-5.40) Hemoglobin 10.3 G/DL (12.0-16.0) Hematocrit 33.6 % (37.0-47.0) Mean Corpuscular Volume 83 FL (80-99) Mean Corpuscular Hemoglobin 25.4 PG (27.0-31.0) Mean Corpuscular Hemoglobin Concent 30.5 G/DL (32.0-36.0) Red Cell Distribution Width 18.5 % (11.6-14.8) Platelet Count 41 K/UL (150-450) Mean Platelet Volume 8.2 FL (6.5-10.1) Neutrophils (%) (Auto) % (45.0-75.0) Lymphocytes (%) (Auto) % (20.0-45.0) Monocytes (%) (Auto) % (1.0-10.0) Eosinophils (%) (Auto) % (0.0-3.0) Basophils (%) (Auto) % (0.0-2.0) Differential Total Cells Counted 100 Neutrophils % (Manual) 55 % (45-75) Lymphocytes % (Manual) 34 % (20-45) Monocytes % (Manual) 11 % (1-10) Eosinophils % (Manual) 0 % (0-3) Basophils % (Manual) 0 % (0-2) Band Neutrophils 0 % (0-8) Other Cell Type Pathologist review Platelet Estimate Decreased Platelet Morphology Normal Hypochromasia 1+ Anisocytosis 1+ Reticulocyte Count 1.4 % (0.5-2.0) Prothrombin Time 12.3 SEC (9.30-11.50) Prothromb Time International Ratio 1.1 (0.9-1.1) Sodium Level 138 MMOL/L (136-145) Potassium Level 3.5 MMOL/L (3.5-5.1) Chloride Level 105 MMOL/L (98-107) Carbon Dioxide Level 26 MMOL/L (21-32) Anion Gap 7 mmol/L (5-15) Blood Urea Nitrogen 7 mg/dL (7-18) Creatinine 0.6 MG/DL (0.55-1.30) Estimat Glomerular Filtration Rate > 60 mL/min (>60) Glucose Level 184 MG/DL (74-106) Calcium Level 8.2 MG/DL (8.5-10.1) Iron Level 81 ug/dL (50-175) Total Iron Binding Capacity 298 ug/dL (250-450) Percent Iron Saturation 27 % (15-50) Unsaturated Iron Binding 217 ug/dL (112-346) Ferritin 23 NG/ML (8-388) Total Bilirubin 1.0 MG/DL (0.2-1.0) Aspartate Amino Transf (AST/SGOT) 91 U/L (15-37) Alanine Aminotransferase (ALT/SGPT) 70 U/L (12-78) Alkaline Phosphatase 143 U/L (46-116) Ammonia 31 umol/L (11-32) Lactate Dehydrogenase 187 U/L (81-234) Total Protein 6.8 G/DL (6.4-8.2) Albumin 2.5 G/DL (3.4-5.0) Globulin 4.3 g/dL Albumin/Globulin Ratio 0.6 (1.0-2.7) Vitamin B12 Level 641 PG/ML (193-986) HIV (1&2) Antibody Rapid Negative (NEGATIVE) Test 02/05/20 22:09 02/06/20 05:30 02/06/20 05:56 White Blood Count 2.7 K/UL (4.8-10.8) Red Blood Count 3.94 M/UL (4.20-5.40) Hemoglobin 10.1 G/DL (12.0-16.0) Hematocrit 32.8 % (37.0-47.0) Mean Corpuscular Volume 83 FL (80-99) Mean Corpuscular Hemoglobin 25.6 PG (27.0-31.0) Mean Corpuscular Hemoglobin Concent 30.8 G/DL (32.0-36.0) Red Cell Distribution Width 18.3 % (11.6-14.8) Platelet Count 37 K/UL (150-450) Mean Platelet Volume 8.6 FL (6.5-10.1) Neutrophils (%) (Auto) % (45.0-75.0) Lymphocytes (%) (Auto) % (20.0-45.0) Monocytes (%) (Auto) % (1.0-10.0) Eosinophils (%) (Auto) % (0.0-3.0) Basophils (%) (Auto) % (0.0-2.0) Sodium Level 135 MMOL/L (136-145) Potassium Level 3.5 MMOL/L (3.5-5.1) Chloride Level 103 MMOL/L (98-107) Carbon Dioxide Level 25 MMOL/L (21-32) Blood Urea Nitrogen 4 mg/dL (7-18) Creatinine 0.6 MG/DL (0.55-1.30) Estimat Glomerular Filtration Rate > 60 mL/min (>60) Glucose Level 215 MG/DL (74-106) Calcium Level 8.3 MG/DL (8.5-10.1) POC Whole Blood Glucose 219 MG/DL (74-106) Height (Feet): 5 Height (Inches): 4.00 Weight (Pounds): 140 Ellis Trotter MD Feb 06, 2020 08:47
--- NOTE | 2020-02-06 10:14 | Pulmonology Progress Note ---
Subjective ROS Limited/Unobtainable: Yes Interval Events: S/p PPM Constitutional: Reports: no symptoms HEENT: Repors: no symptoms Respiratory: Reports: no symptoms Cardiovascular: Reports: no symptoms Gastrointestinal/Abdominal: Reports: no symptoms Allergies: Coded Allergies: MORPHINE (Verified Allergy, Unknown, 02/02/20) Objective Last 24 Hour Vital Signs Date Time Temp Pulse Resp B/P (MAP) Pulse Ox O2 Delivery O2 Flow Rate FiO2 02/06/20 07:50 81 02/06/20 06:36 97.8 02/06/20 04:00 89 02/06/20 04:00 96.3 84 20 117/89 (98) 98 02/06/20 00:00 97.6 90 20 121/69 (86) 98 02/06/20 00:00 90 02/05/20 22:04 97.8 02/05/20 20:00 Nasal Cannula 2.0 02/05/20 20:00 97.6 76 20 123/64 (83) 98 02/05/20 19:20 98 Nasal Cannula 2.0 28 02/05/20 16:00 97.8 76 20 123/64 (83) 98 02/05/20 16:00 2.0 02/05/20 15:43 80 02/05/20 14:00 87 22 109/65 (80) 100 02/05/20 13:00 81 20 106/68 (81) 100 02/05/20 12:00 76 02/05/20 12:00 97.2 80 19 110/59 (76) 100 02/05/20 12:00 2.0 02/05/20 11:00 76 15 112/64 (80) 100 Intake and Output 02/05/20 02/06/20 19:00 07:00 Intake Total 1120 ml Output Total 1225 ml Balance -105 ml Intake Oral 1120 ml Output Urine Total 1225 ml # Voids 3 # Bowel Movements 1 General Appearance: no acute distress HEENT: normocephalic Respiratory: chest wall non-tender, lungs clear Cardiovascular: normal peripheral pulses, normal rate Abdomen: normal bowel sounds Laboratory Tests 02/05/20 17:29: POC Whole Blood Glucose 280H 02/05/20 22:09: POC Whole Blood Glucose [Pending] 02/06/20 05:30: White Blood Count 2.7L, Red Blood Count 3.94L, Hemoglobin 10.1L, Hematocrit 32.8L, Mean Corpuscular Volume 83, Mean Corpuscular Hemoglobin 25.6L, Mean Corpuscular Hemoglobin Concent 30.8L, Red Cell Distribution Width 18.3H, Platelet Count 37L, Mean Platelet Volume 8.6, Neutrophils (%) (Auto) , Lymphocytes (%) (Auto) , Monocytes (%) (Auto) , Eosinophils (%) (Auto) , Basophils (%) (Auto) , Neutrophils % (Manual) [Pending], Lymphocytes % (Manual) [Pending], Platelet Estimate [Pending], Platelet Morphology [Pending], Sodium Level 135L, Potassium Level 3.5, Chloride Level 103, Carbon Dioxide Level 25, Blood Urea Nitrogen 4L, Creatinine 0.6, Estimat Glomerular Filtration Rate > 60, Glucose Level 215H, Calcium Level 8.3L 02/06/20 05:56: POC Whole Blood Glucose 219H Current Medications Medications (Trade) Dose Ordered Sig/Emma Route PRN Reason Start Time Stop Time Status Last Admin Dose Admin Acetaminophen (Tylenol) 650 mg Q4H PRN ORAL Moderate Pain (Pain Scale 4-6) 02/02/20 16:00 03/03/20 15:59 02/02/20 21:21 Acetaminophen/ Codeine Phosphate (Tylenol #3) 1 tab Q4H PRN ORAL Moderate Pain (Pain Scale 4-6) 02/04/20 13:30 02/11/20 13:29 Cefazolin Sodium 1 gm/Dextrose 55 ml @ 110 mls/hr Q8H IVPB 02/06/20 08:00 02/13/20 07:59 02/06/20 08:29 Dextrose (Dextrose 50%) 25 ml Q30M PRN IV Hypoglycemia 02/03/20 08:00 05/03/20 07:59 Dextrose (Dextrose 50%) 50 ml Q30M PRN IV Hypoglycemia 02/03/20 08:00 05/03/20 07:59 Dextrose/Sodium Chloride 1,000 ml @ 60 mls/hr [id number] IV 02/02/20 16:45 03/03/20 16:44 02/06/20 04:05 Hydromorphone HCl (Dilaudid) 0.25 mg Q4H PRN IVP Severe Pain (Pain Scale 7-10) 02/02/20 16:00 02/09/20 15:59 02/06/20 05:49 Insulin Aspart (NovoLOG) BEFORE MEALS AND HS SUBQ 02/03/20 11:30 05/03/20 11:29 02/06/20 06:59 Iron Sucrose 100 mg/Sodium Chloride 60 ml @ 240 mls/hr BEDTIME IVPB 02/06/20 21:00 02/10/20 21:14 Lactulose (Cephulac) 15 gm THREE TIMES A DAY ORAL 02/05/20 13:00 03/06/20 12:59 02/05/20 17:33 Metformin HCl (Glucophage) 500 mg BID ORAL 02/02/20 18:00 03/03/20 17:59 02/06/20 08:29 Ondansetron HCl (Zofran) 4 mg Q6H PRN IVP Nausea & Vomiting 02/04/20 13:30 03/05/20 13:29 Pantoprazole (Protonix) 40 mg EVERY 12 HOURS IVP 02/02/20 21:00 03/03/20 20:59 02/06/20 08:28 Rifaximin (Xifaxan) 550 mg EVERY 12 HOURS ORAL 02/04/20 21:00 02/11/20 20:59 02/06/20 08:29 Assessment/Plan Assessment/Plan IMPRESSION: 1. Bradycardia/heart block. S/p PPM 2. Hypotension. Resolved 3. Liver cirrhosis. DISCUSSION: Seen in tele She is doing much better Will see prn Nico Bazan Omar Syed MD Feb 06, 2020 10:14
--- NOTE | 2020-02-06 10:30 | General Progress Note ---
Subjective Allergies: Coded Allergies: MORPHINE (Verified Allergy, Unknown, 02/02/20) Subjective more awake doing better s/p icd placement Objective Last 24 Hour Vital Signs Date Time Temp Pulse Resp B/P (MAP) Pulse Ox O2 Delivery O2 Flow Rate FiO2 02/06/20 09:00 Nasal Cannula 2.0 02/06/20 07:50 81 02/06/20 06:36 97.8 02/06/20 04:00 89 02/06/20 04:00 96.3 84 20 117/89 (98) 98 02/06/20 00:00 97.6 90 20 121/69 (86) 98 02/06/20 00:00 90 02/05/20 22:04 97.8 02/05/20 20:00 Nasal Cannula 2.0 02/05/20 20:00 97.6 76 20 123/64 (83) 98 02/05/20 19:20 98 Nasal Cannula 2.0 28 02/05/20 16:00 97.8 76 20 123/64 (83) 98 02/05/20 16:00 2.0 02/05/20 15:43 80 02/05/20 14:00 87 22 109/65 (80) 100 02/05/20 13:00 81 20 106/68 (81) 100 02/05/20 12:00 76 02/05/20 12:00 97.2 80 19 110/59 (76) 100 02/05/20 12:00 2.0 02/05/20 11:00 76 15 112/64 (80) 100 Intake and Output 02/05/20 02/06/20 19:00 07:00 Intake Total 1120 ml Output Total 1225 ml Balance -105 ml Intake Oral 1120 ml Output Urine Total 1225 ml # Voids 3 # Bowel Movements 1 Laboratory Tests 02/05/20 17:29: POC Whole Blood Glucose 280H 02/05/20 22:09: POC Whole Blood Glucose [Pending] 02/06/20 05:30: White Blood Count 2.7L, Red Blood Count 3.94L, Hemoglobin 10.1L, Hematocrit 32.8L, Mean Corpuscular Volume 83, Mean Corpuscular Hemoglobin 25.6L, Mean Corpuscular Hemoglobin Concent 30.8L, Red Cell Distribution Width 18.3H, Platelet Count 37L, Mean Platelet Volume 8.6, Neutrophils (%) (Auto) , Lymphocytes (%) (Auto) , Monocytes (%) (Auto) , Eosinophils (%) (Auto) , Basophils (%) (Auto) , Neutrophils % (Manual) [Pending], Lymphocytes % (Manual) [Pending], Platelet Estimate [Pending], Platelet Morphology [Pending], Sodium Level 135L, Potassium Level 3.5, Chloride Level 103, Carbon Dioxide Level 25, Blood Urea Nitrogen 4L, Creatinine 0.6, Estimat Glomerular Filtration Rate > 60, Glucose Level 215H, Calcium Level 8.3L 02/06/20 05:56: POC Whole Blood Glucose 219H Height (Feet): 5 Height (Inches): 4.00 Weight (Pounds): 140 General Appearance: alert EENT: PERRL/EOMI Neck: supple Cardiovascular: normal rate, regular rhythm Respiratory/Chest: lungs clear Extremities: non-tender Neurologic: alert Assessment/Plan Assessment/Plan: 1 syncopy 2 cardiac arrthemia s/p icd placement 3 htn 4 cirrosis 5 weakness for pacemaker today cont rest tx dc home scriptss in chart Jose Morales MD Feb 06, 2020 10:30
--- NOTE | 2020-02-06 11:55 | General Progress Note ---
Subjective ROS Limited/Unobtainable: No Allergies: Coded Allergies: MORPHINE (Verified Allergy, Unknown, 02/02/20) Objective Last 24 Hour Vital Signs Date Time Temp Pulse Resp B/P (MAP) Pulse Ox O2 Delivery O2 Flow Rate FiO2 02/06/20 09:00 Nasal Cannula 2.0 02/06/20 07:50 81 02/06/20 06:36 97.8 02/06/20 04:00 89 02/06/20 04:00 96.3 84 20 117/89 (98) 98 02/06/20 00:00 97.6 90 20 121/69 (86) 98 02/06/20 00:00 90 02/05/20 22:04 97.8 02/05/20 20:00 Nasal Cannula 2.0 02/05/20 20:00 97.6 76 20 123/64 (83) 98 02/05/20 19:20 98 Nasal Cannula 2.0 28 02/05/20 16:00 97.8 76 20 123/64 (83) 98 02/05/20 16:00 2.0 02/05/20 15:43 80 02/05/20 14:00 87 22 109/65 (80) 100 02/05/20 13:00 81 20 106/68 (81) 100 02/05/20 12:00 76 02/05/20 12:00 97.2 80 19 110/59 (76) 100 02/05/20 12:00 2.0 Intake and Output 02/05/20 02/06/20 19:00 07:00 Intake Total 1120 ml Output Total 1225 ml Balance -105 ml Intake Oral 1120 ml Output Urine Total 1225 ml # Voids 3 # Bowel Movements 1 Laboratory Tests 02/05/20 17:29: POC Whole Blood Glucose 280H 02/05/20 22:09: POC Whole Blood Glucose [Pending] 02/06/20 05:30: White Blood Count 2.7L, Red Blood Count 3.94L, Hemoglobin 10.1L, Hematocrit 32.8L, Mean Corpuscular Volume 83, Mean Corpuscular Hemoglobin 25.6L, Mean Corpuscular Hemoglobin Concent 30.8L, Red Cell Distribution Width 18.3H, Pl atelet Count 37L, Mean Platelet Volume 8.6, Neutrophils (%) (Auto) , Lymphocytes (%) (Auto) , Monocytes (%) (Auto) , Eosinophils (%) (Auto) , Basophils (%) (Auto) , Differential Total Cells Counted 100, Neutrophils % (Manual) 67, Lymphocytes % (Manual) 24, Monocytes % (Manual) 8, Eosinophils % (Manual) 1, Basophils % (Manual) 0, Band Neutrophils 0, Platelet Estimate DecreasedL, Platelet Morphology Normal, Hypochromasia 1+, Anisocytosis 1+, Sodium Level 135L , Potassium Level 3.5, Chloride Level 103, Carbon Dioxide Level 25, Blood Urea Nitrogen 4L, Creatinine 0.6, Estimat Glomerular Filtration Rate > 60, Glucose Level 215H, Calcium Level 8.3L 02/06/20 05:56: POC Whole Blood Glucose 219H 02/06/20 11:27: POC Whole Blood Glucose [Pending] 02/06/20 11:44: Troponin I [Pending] Height (Feet): 5 Height (Inches): 4.00 Weight (Pounds): 140 General Appearance: alert EENT: normal ENT inspection Neck: normal alignment Cardiovascular: normal rate Respiratory/Chest: decreased breath sounds Abdomen: normal bowel sounds, non tender, soft Extremities: non-tender Assessment/Plan Assessment/Plan: cirrhosis EV anemia thrombocytopenia heart block s/p pacemaker DM abd us>>> reviewed hepatitis panel>>> neg ammonia level>>>125>> 32 cont Xifaxan lactulose Buster Heard MD Feb 06, 2020 11:55
[2020-02-06 12:00] VITALS: BP 100/59
--- NOTE | 2020-02-06 12:21 | Cardiac Electrophysiology PN ---
Assessment/Plan Assessment/Plan 1. Intermittent complete heart block and syncope. S/P Transvenous temporary pacemaker placement by me 02/02/2020 S/P [facility] [place] permanent pacer placement and removal of temporary pacer 02/04/2020. Pacer interrogated and showed Nl Fx CXR no Ptx. Pacer site no hematoma 2. Troponin elevation, 0.216. 0.2 and 0.2. Levels are low and Flat. No CP. ECG Troponin today is negative. Offered transfer for cardiac catheterization vs medical therapy. She wants to go home and have it done as out patient. No CP today and troponin this AM is negative Add Aspirin, Lopressor and Lipitor 3. Cirrhosis of the liver. 4. Diabetes, on metformin. DW RN and Dr Morales Subjective Subjective S/P PPM implant and removal of temporary pacer 02/04/2020. Remained 100% paced in ICU Had an episode of SOB last night. Objective Last 24 Hour Vital Signs Date Time Temp Pulse Resp B/P (MAP) Pulse Ox O2 Delivery O2 Flow Rate FiO2 02/06/20 09:00 Nasal Cannula 2.0 02/06/20 07:50 81 02/06/20 06:36 97.8 02/06/20 04:00 89 02/06/20 04:00 96.3 84 20 117/89 (98) 98 02/06/20 00:00 97.6 90 20 121/69 (86) 98 02/06/20 00:00 90 02/05/20 22:04 97.8 02/05/20 20:00 Nasal Cannula 2.0 02/05/20 20:00 97.6 76 20 123/64 (83) 98 02/05/20 19:20 98 Nasal Cannula 2.0 28 02/05/20 16:00 97.8 76 20 123/64 (83) 98 02/05/20 16:00 2.0 02/05/20 15:43 80 02/05/20 14:00 87 22 109/65 (80) 100 02/05/20 13:00 81 20 106/68 (81) 100 Intake and Output 02/05/20 02/06/20 19:00 07:00 Intake Total 1120 ml Output Total 1225 ml Balance -105 ml Intake Oral 1120 ml Output Urine Total 1225 ml # Voids 3 # Bowel Movements 1 Laboratory Tests Test 02/05/20 17:29 11/5/20 22:09 02/06/20 05:30 02/06/20 05:56 POC Whole Blood Glucose 280 MG/DL (74-106) H Pending 219 MG/DL (74-106) H White Blood Count 2.7 K/UL (4.8-10.8) L Red Blood Count 3.94 M/UL (4.20-5.40) L Hemoglobin 10.1 G/DL (12.0-16.0) L Hematocrit 32.8 % (37.0-47.0) L Mean Corpuscular Volume 83 FL (80-99) Mean Corpuscular Hemoglobin 25.6 PG (27.0-31.0) L Mean Corpuscular Hemoglobin Concent 30.8 G/DL (32.0-36.0) L Red Cell Distribution Width 18.3 % (11.6-14.8) H Platelet Count 37 K/UL (150-450) L Mean Platelet Volume 8.6 FL (6.5-10.1) Neutrophils (%) (Auto) % (45.0-75.0) Lymphocytes (%) (Auto) % (20.0-45.0) Monocytes (%) (Auto) % (1.0-10.0) Eosinophils (%) (Auto) % (0.0-3.0) Basophils (%) (Auto) % (0.0-2.0) Differential Total Cells Counted 100 Neutrophils % (Manual) 67 % (45-75) Lymphocytes % (Manual) 24 % (20-45) Monocytes % (Manual) 8 % (1-10) Eosinophils % (Manual) 1 % (0-3) Basophils % (Manual) 0 % (0-2) Band Neutrophils 0 % (0-8) Platelet Estimate Decreased L Platelet Morphology Normal Hypochromasia 1+ Anisocytosis 1+ Sodium Level 135 MMOL/L (136-145) L Potassium Level 3.5 MMOL/L (3.5-5.1) Chloride Level 103 MMOL/L (98-107) Carbon Dioxide Level 25 MMOL/L (21-32) Blood Urea Nitrogen 4 mg/dL (7-18) L Creatinine 0.6 MG/DL (0.55-1.30) Estimat Glomerular Filtration Rate > 60 mL/min (>60) Glucose Level 215 MG/DL (74-106) H Calcium Level 8.3 MG/DL (8.5-10.1) L Test 02/06/20 11:27 02/06/20 11:44 POC Whole Blood Glucose Pending Troponin I 0.035 ng/mL (0.000-0.056) Objective HEAD AND NECK: No JVD. LUNGS: Clear. CARDIOVASCULAR: Regular S1 and S2 with no G/R/M. Pacer left subclavian with no hematoma ABDOMEN: Soft, status post laparoscopic cholecystectomy. EXTREMITIES: No pitting edema. Right groin no hematoma Rodrigue Hanna MD Feb 06, 2020 12:21
[2020-02-06] MEDS ORDERED: XIFAXAN550 MG ORAL (14:55)
[2020-02-06] MEDS ORDERED: LACTULOSE20 GM/301 ORAL (14:56)
[2020-02-06] MEDS ORDERED: PROTONIX40 MG ORAL (14:57)
[2020-02-06] MEDS ORDERED: TRAMADOL HCL50 MG ORAL (14:58)
[2020-02-06 16:00] VITALS: BP 115/88
--- NOTE | 2020-02-06 16:01 | Surgery Progress Note ---
Surgery Progress Note Subjective Symptoms: improved, pain absent, tolerating diet, passing flatus Objective Last 24 Hour Vital Signs Date Time Temp Pulse Resp B/P (MAP) Pulse Ox O2 Delivery O2 Flow Rate FiO2 02/06/20 12:00 98.4 83 20 100/59 (73) 96 02/06/20 11:33 77 02/06/20 09:00 Nasal Cannula 2.0 02/06/20 08:00 98.0 80 20 112/63 (79) 95 02/06/20 07:50 81 02/06/20 06:36 97.8 02/06/20 04:00 89 02/06/20 04:00 96.3 84 20 117/89 (98) 98 02/06/20 00:00 97.6 90 20 121/69 (86) 98 02/06/20 00:00 90 02/05/20 22:04 97.8 02/05/20 20:00 Nasal Cannula 2.0 02/05/20 20:00 97.6 76 20 123/64 (83) 98 02/05/20 19:20 98 Nasal Cannula 2.0 28 I&O Intake and Output 02/05/20 02/06/20 19:00 07:00 Intake Total 1120 ml Output Total 1225 ml Balance -105 ml Intake Oral 1120 ml Output Urine Total 1225 ml # Voids 3 # Bowel Movements 1 Cardiovascular: RSR Respiratory: clear Abdomen: soft, non-tender, present bowel sounds Extremities: no edema Laboratory Tests Test 02/05/20 17:29 02/05/20 22:09 02/06/20 05:30 02/06/20 05:56 POC Whole Blood Glucose 280 MG/DL (74-106) H Pending 219 MG/DL (74-106) H White Blood Count 2.7 K/UL (4.8-10.8) L Red Blood Count 3.94 M/UL (4.20-5.40) L Hemoglobin 10.1 G/DL (12.0-16.0) L Hematocrit 32.8 % (37.0-47.0) L Mean Corpuscular Volume 83 FL (80-99) Mean Corpuscular Hemoglobin 25.6 PG (27.0-31.0) L Mean Corpuscular Hemoglobin Concent 30.8 G/DL (32.0-36.0) L Red Cell Distribution Width 18.3 % (11.6-14.8) H Platelet Count 37 K/UL (150-450) L Mean Platelet Volume 8.6 FL (6.5-10.1) Neutrophils (%) (Auto) % (45.0-75.0) Lymphocytes (%) (Auto) % (20.0-45.0) Monocytes (%) (Auto) % (1.0-10.0) Eosinophils (%) (Auto) % (0.0-3.0) Basophils (%) (Auto) % (0.0-2.0) Differential Total Cells Counted 100 Neutrophils % (Manual) 67 % (45-75) Lymphocytes % (Manual) 24 % (20-45) Monocytes % (Manual) 8 % (1-10) Eosinophils % (Manual) 1 % (0-3) Basophils % (Manual) 0 % (0-2) Band Neutrophils 0 % (0-8) Platelet Estimate Decreased L Platelet Morphology Normal Hypochromasia 1+ Anisocytosis 1+ Sodium Level 135 MMOL/L (136-145) L Potassium Level 3.5 MMOL/L (3.5-5.1) Chloride Level 103 MMOL/L (98-107) Carbon Dioxide Level 25 MMOL/L (21-32) Blood Urea Nitrogen 4 mg/dL (7-18) L Creatinine 0.6 MG/DL (0.55-1.30) Estimat Glomerular Filtration Rate > 60 mL/min (>60) Glucose Level 215 MG/DL (74-106) H Calcium Level 8.3 MG/DL (8.5-10.1) L Test 02/06/20 11:27 02/06/20 11:44 POC Whole Blood Glucose Pending Troponin I 0.035 ng/mL (0.000-0.056) Plan Problems: (1) Syncope (2) Closed head injury Assessment & Plan: No acute intracranial hemorrhage or edema, mass effect, nor midline shift. Normal keenan-white differentiation. Normal size ventricles and extra axial CSF spaces. The calvarium is intact. The mastoids are clear. What appears to be prosthetic material is seen in the frontal scalp. The sinuses are clear. Impression: Negative. No acute intracranial bleed or mass effect Frontal scalp prosthesis incidentally noted. Correlate with surgical history (3) Symptomatic bradycardia (4) Complete heart block (5) Liver cirrhosis Assessment & Plan: Patient status post laparoscopic cholecystectomy. Patient with known history of Mena liver cirrhosis nonalcoholic etiology unknown does not state its hepatitis. She is undergoing care at [facility] liver center. Will order ultrasound to evaluate for potential intra-abdominal etiology of discomfort. No acute surgical invention at this time. Hold on CT scan as patient has had prior work-up. (6) Abnormal LFTs Assessment & Plan: Will trend labs. Amylase lipase ordered. Okay for diet from surgical standpoint. Tentatively n.p.o. after midnight for cardiology intervention. Will follow with recommendations thank you Guevara participate patient's care DeborahJoe Feb 06, 2020 16:01
[2020-02-06] MEDS ORDERED: Iron Sucrose 100 MG in NS 55 ML IVPB SCH (21:00)
[2020-02-06] MEDS ORDERED: Atorvastatin 20mg tab ORAL SCH (21:00)
[2020-02-07] MEDS ORDERED: Metoprolol Succinate XL 25mg tab ORAL SCH (09:00)
[2020-02-07] MEDS ORDERED: Aspirin EC 81mg tab ORAL SCH (09:00)
--- NOTE | 2020-02-08 14:02 | Cardiology Report ---
APPROVED REPORT EXAM: Two-dimensional and M-mode echocardiogram with Doppler and color Doppler. INDICATION COMPELETE HEART BLOCK M-Mode DIMENSIONS IVSd0.8 (0.7-1.1cm)Left Atrium (MM)4.0 (1.6-4.0cm) LVDd4.0 (3.5-5.6cm)Aortic Root2.7 (2.0-3.7cm) PWd0.6 (0.7-1.1cm)Aortic Cusp Exc.1.6 (1.5-2.0cm) IVSs0.9 cm LVDs2.9 (2.5-4.0cm) PWs0.9 cm <Conclusion> Technically difficult study pts moving due to pain. Normal left ventricular chamber size, systolic function and wall motion to extent visualized. Left ventricular ejection fraction estimated to be 60 %. All other cardiac chamber sizes are within normal limits. Calcification of aortic valve with adequate cusp excursion. Thickened mitral valve leaflets with normal excursion. Mitral annulus and aortic root calcification. Pulmonic valve not well visualized. Normal tricuspid valve structure. IVC dilated at 2.4 cm without physiologic collapse suggestive of increased RA pressure,RAP estimated 15 mmHG. A color flow and spectral Doppler study was performed and revealed: Mild mitral regurgitation. Mitral inflow indicates normal left ventricular diastolic function. Moderate tricuspid regurgitation. Tricuspid systolic velocities suggests peak right ventricular systolic pressure of 48 mmHg, consistent with moderate pulmonary hypertension. Trace pulmonary insufficiency.
--- NOTE | 2020-02-08 15:10 | Cardiology Report ---
APPROVED REPORT EKG Measurement Heart [id number] [place] 194P [id number] <Conclusion> Sequential AV paced rhythm Abnormal ECG
--- NOTE | 2020-02-09 09:05 | Discharge Summary ---
Discharge Summary Discharge Summary _ DATE OF ADMISSION: 02/02/2020 DATE OF DISCHARGE: 02/06/2020 DISCHARGED BY: Dr. Jose Morales CONSULTANTS: Dr. Joe Trotter [facility] HOSPITAL COURSE: Patient is a 54-year-old female, with syncope, closed head injury, symptom of bradycardia, complete heart block, liver cirrhosis and elevated LFTs. Patient stated that she was feeling dizzy while eating breakfast and and passed out hitting her head. Since that time patient has been feeling dizzy. She has history of cirrhosis but denies any melena or hematochezia. She required blood transfusion in the past. She denied any fever. Upon evaluation at ED, initial EKG showed sinus bradycardia, however while on the monitor, patient had complete heart block. Repeat EKG also confirmed complete heart block. She had prolonged process. She was given multiple doses of atropine with mild improvement. Potassium was normal. Hemoglobin was normal. She denied history of cardiac arrhythmia. Head CT did not show any acute process. [place] was immediately consulted. Patient was admitted to ICU for close monitoring. Initial troponin was mildly elevated. Patient would need temporary pacemaker. Patient underwent emergent transvenous temporary pacemaker placement. Patient would eventually need a permanent pacer placed. Cardiac enzymes were elevated. Levels are low and flat. Patient with known history of Mena liver cirrhosis. She is under the care of [facility] liver center. Abdominal ultrasound showed echogenic surface nodularity of t he liver, suggestive for cirrhotic changes. Surgically absent gallbladder, negative for dilated ducts. Amylase and lipase were ordered. LFTs were trended. There was no acute surgical intervention needed. On 02/04/2020, she underwent permanent pacemaker implantation. Temporary pacemaker wires were removed. She tolerated procedure well. There was no immediate complications. Patient had pancytopenia, likely related to cirrhosis. HIV and hepatitis panel were negative. Ammonia level was elevated. She was given lactulose and Xifaxan. Pacemaker was interrogated and showed normal function. Chest x-ray did not show any pneumothorax. Pacemaker site did not have any hematoma. Patient was cleared for discharge home. Aspirin, Lopressor and Lipitor were a dded to her regimen. FINAL DIAGNOSES: Syncope due to intermittent complete heart block and syncope status post transvenous temporary pacemaker placement on 02/02/2020; status post [place] pacemaker placement and removal of temporary pacer on 02/04/2020 Troponin elevation Liver cirrhosis Diabetes Pancytopenia Esophageal varices Hypertension Weakness DISPOSITION: Patient was discharged home. DISCHARGE MEDICATIONS: Refer to Discharge Medication List. DISCHARGE INSTRUCTIONS: Foll at the ED, vital signs were stable. Ow-up in a week. I have been assigned to complete a discharge summary on this account, I was not involved with the patient's management.--JORDON Russo Jacqueline Robles NP Feb 09, 2020 09:05
== END 2020-02-06 16:11 | disposition home or self-care (01) | DRG 171 ==
LOC: EDBD 10:28 → EMR 11:10 → EDBEDREQSVC 11:33 → EDBEDREQ 11:33 → ICU 12:17 → EDBEDREQ 13:41 → ICU 14:35 → 2E 02-05 16:55
PROC: 5A1223Z Performance of Cardiac Pacing, Continuous (ICD-10-PCS; principal; 2020-02-02 13:30)
PROC: 02H63JZ Insertion of Pacemaker Lead into Right Atrium, Percutaneous Approach (ICD-10-PCS; 2020-02-04)
PROC: 0JH606Z Insertion of Pacemaker, Dual Chamber into Chest Subcutaneous Tissue and Fascia, Open Approach (ICD-10-PCS; 2020-02-04)
PROC: 02HK3JZ Insertion of Pacemaker Lead into Right Ventricle, Percutaneous Approach (ICD-10-PCS; 2020-02-04)
DX: I44.2 Atrioventricular block, complete (principal); D61.818 Other pancytopenia; I95.9 Hypotension, unspecified; S09.90XA Unspecified injury of head, initial encounter; I10 Essential (primary) hypertension; E11.9 Type 2 diabetes mellitus without complications; K74.60 Unspecified cirrhosis of liver; W18.30XA Fall on same level, unspecified, initial encounter; Y92.9 Unspecified place or not applicable; R00.1 Bradycardia, unspecified; K70.30 Alcoholic cirrhosis of liver without ascites; F10.10 Alcohol abuse, uncomplicated; D50.9 Iron deficiency anemia, unspecified
CPT/HCPCS: 36415; 70450; 71045; 76000; 76700; 80048; 80053; 82140; 82270; 82607; 82728; 82962; 83540; 83550; 83615; 83880; 84439; 84443; 84484; 85007; 85025; 85044; 85060; 85610; 85730; 86703; 86705; 86709; 86803; 86850; 86900; 86901; 87340; 93005; 93306; 93880; 93970; 94003; 94150; 96374; 96376; 99291; J1815; J2250; U0002